=== PATIENT | male | born 1945 | race Caucasian/White ===

== ENCOUNTER 2024-05-25 11:20 | Emergency (ER) | payer OTHER ==
--- OUTSIDE RECORDS SUMMARY | 2024-05-25 11:26 | XMS REPORT | Continuity of Care Document ---
Author Name Unknown Address [address] [facility] [address] [place] [address] [facility] Address [address] [facility] 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 Phone NONE, AVAILABLE Primary Care Physician Unavailab uYlissa Brooks Attending Clinician UnavailJAYJAY Sherman Attending Clinician Unavailable JAYJAY VÁZQUEZ Attending Clinician Unavailable Dinorah Alejandre Attending Clinician Unavailable Loi Connelly Attending Clinician Unavailable Alex Dickerson Attending Clinician Unavailable Alessandro Metzger Attending Clinician Unavailable Teresa Velasco Attending Clinician Unavailable Jamaica Bardales Attending Clinician UnavailBo Medina Attending Clinician Unavailable Margo Rajan Attending Clinician Unavailab Yulissa Brooks Admitting Clinician UnavailJAYJAY Sherman Admitting Clinician Unavailable Dinorah Alejandre Admitting Clinician Unavailable Muna Ellsworth Admitting Clinician Unabenjamin valenzuela Physician, No Primary or Family Admitting Clinic carter Unavailable Alessandro Metzger Admitting Clinician Unavailable Teresa Velasco Admitting Clinician Unavailable UNDEFINED Admitting Clinician Unavailable Bo Dee Admitting Clinician Unavailable Payers Payer Name Policy Type Policy Number Effective Date Expirati on Date Source [id number] 1959 00:00:00 [id number] 1959 00:00:00 Allergies, Adverse Reactions, Alerts Allergy Name Allergy Type Status Severity Reaction(s) Onset Date Inactive Date Treating Clinician Comments Source Sulfa (Sulfona mide Antibiot ics) DA Active SV SWELLING 8-13 00:00: 00 [facility] Sulfa (Sulfona mide Antibiot ics) DA Active U UNKNOWN 2-02 00:00: 00 [facility] No Known Drug Allergie s DA Active [facility] (LUF/LI V/SA) Social History Smoking Status Start Date Stop Date Source Never smoker [facility] (LUF/COLIN/SA) Vital Signs Vital Name Observation Time Observation Value Comments S ource Height 2024-03-19 01:10:00 170.18 CM Weight 2024-03-19 01:10:00 74.84 KG Heart Rate 2024-03-19 04:30:00 80 /min [facility] (LUF/COLIN/SA) Respiratory Rate 2024-03-19 04:30:00 18 /min [facility] (F/COLIN/SA) O2% BldC Oximetry 2024-03-19 04:30:00 98 % [facility] (LUF/COLIN/SA) BP Systolic 2024-03-19 04:30:00 130 mm[Hg] [facility] (LUF/COLIN/SA) BP Diastolic 2024-03-19 04:30:00 80 mm[Hg] [facility] (LUF/COLIN/SA) Body Temperature 2024-03-19 01:10:00 98.4 [degF] [facility] (LUF/COLIN/SA) Height 2024-03-19 01:10:00 67 [in_i] [facility] S [facility] (F/COLIN/SA) Weight 2024-03-19 01:10:00 165 [lb_av] [facility] (LUF/COLIN/SA) BMI (Body Mass Index) 2024-03-19 01:10:00 25.8 kg/m2 [facility] (LUF/COLIN/SA) Procedures Procedure Date / Time Performed Performing Clinicia n Source [id number] 2023-09-09 00:00:00 [id number] [facility] Encounters Start Date/Time End Date/Time Encounter Type Admission Type Attending [facility] Care Facility Care Department Encounter ID Source 2024-03-19 01:03:00 2024-03-19 04:38:00 LOW BACK PAIN, UNSPECIFIE D 1 BLANCAJAYJAY RUSHING [facility] [id number] [facility] (LUF/LI V/SA) 2024-03-19 00:00:00 2024-03-19 00:00:[address] [id number] [facility] (LUF/LI V/SA) 2024-03-19 00:00:00 2024-03-19 00:00:[address] [id number] [facility] (LUF/LI V/SA) 2023-12-27 13:49:00 2023-12-27 17:43:00 Inpatient EM Dinorah Alejandre HCAKW CARD [id number] [facility] 2023-11-26 12:41:00 2023-11-26 15:41:00 Emergency EM [place] Loi HCAKW SPENSER [id number] [facility] 2023-11-26 12:41:00 2023-11-26 15:41:00 Emergency EM MaricelLoi HCAKW SPENSER [id number] [facility] 2023-10-23 13:30:00 2023-10-23 14:02:00 Emergency EM Tuan Alex HCAKW CERS [id number] [facility] 2023-10-18 00:06:00 2023-10-18 16:43:00 Inpatient EM Alessandro Metzger HCAKW CARD [id number] [facility] 2023-10-01 13:33:00 2023-10-01 14:25:00 Emergency EM Alex Dickerson HCAKW CERS [id number] [facility] 2023-09-07 18:33:00 2023-09-11 11:33:00 Inpatient EM Teresa Velasco HCAKW CARD [id number] [facility] 2023-06-20 13:59:00 2023-06-20 16:30:00 Emergency EM [place] Bardales HCAKW SPENSER [id number] [facility] 2023-06-10 18:55:00 2023-06-12 14:32:00 Inpatient TR Bo Dee HCAKW CARD [id number] [facility] 2023-05-17 08:10:00 2023-05-17 14:59:00 Emergency EM Margo Rajan HCAKW CERS [id number] [facility] Results Test Description Test Time Test Comments Results Result Co mments Source ACUTE HEPATITIS [id number] 18:07:00 * Test Item Value Reference Range Interpretation Comme nts AG HEPATITIS B SURFACE (test code = HBSAG) NEGATIVE NEGATIVE AB HEPATITIS C (test code = HCVAB) REACTIVE NEGATIVE A Critical Tamanna ue reported toFirst Name: Last Name: [id number] READ BACK AND VERIFIEDby [id number], on 04/02/24, @ 6616. 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 Follow[facility] recommendations for supplemental testing.* HCV RNA PCRQualitative is suggested to be ordered to obtain strongerevidence of the presence of anti-HCV.* CDC. Testing for HCV Infection: An Update of Guidance forClinicians and Laboratorians. MMWR / August / Vol.62~~~~~~~~~~~~~~~~~~~~ ~~~~~~~~~~~~~~~~~~~~~~~~~~ ~~~~~~~~~~~~~~ HEPATITIS C RNA BY [id number] 18:07:00 * Test Item Value Reference Range Interpretation Comme nts HEPATITIS C RNA BY PCR (test code = HCVRNAPCR) HCV Not Detected IU/mL See_Comment The quantitative range of this assay is 15 IU/mL to 100 million IU/mL. [Automated message] The system which generated this result transmitted reference range: (). The reference range was not used to interpret this result as normal/abnormal. [id number] 12:21:00* Test Item Value Reference Range Interpretation Comme nts GLUBED (test code = GLUBED) 202 MG/DL 74-106 H [id number] 08:33:00* Test Item Value Reference Range Interpretation Comme nts GLUBED (test code = GLUBED) 176 MG/DL 74-106 H CBC W/AUTO [id number] 06:04:00* Test Item Value Reference Range Interpretation Comme nts WHITE BLOOD CELL (test code = WBC) 2.3 x10 3/uL 5.0-12.0 L RED BLOOD CELL (test code = RBC) 3.70 x10 6/uL 4.70-6.10 L HEMOGLOBIN (test code = HGB) 10.1 g/dL 14.0-18.0 L HEMATOCRIT (test code = HCT) 32.9 % 37.0-49.0 L MEAN CELL VOLUME (test code = MCV) 89 fL 80-94 N MEAN CELL HGB (test code = MCH) 27.3 pg 27-31 N MEAN CELL HGB CONCENTRATION (test code = MCHC) 30.7 g/dL 33-37 L RED CELL DISTRIBUTION WIDTH (test code = RDW) 21.9 % 11.5-15.5 H PLATELET COUNT (test code = PLT) 69 x10 3/uL 130-400 L MEAN PLATELET VOLUME (test c ode = MPV) 9.5 fL 9.4-16.4 N NEUTROPHIL % (test code = NT%) 58.5 % 43-65 N IMMATURE GRANULOCYTE % (test code = IG%) 0.4 % 0.0-2.0 N LYMPHOCYTE % (test code = LY%) 29.6 % 20.5-45.5 N MONOCYTE % (test code = MO%) 9.4 % 5.5-11.7 N EOSINOPHIL % (test code = EO%) 1.7 % 0.9-2.9 N BASOPHIL % (test code = BA%) 0.4 % 0.2-1.0 N NUCLEATED RBC % (test code = NRBC%) 0.0 % 0-1.0 N NEUTROPHIL # (test code = NT#) 1.36 x10 3/uL 2.2-4.8 L IMMATURE GRANULOCYTE # (test code = IG#) 0.01 x10 3/uL 0-0.03 N LYMPHOCYTE # (test code = LY#) 0.69 x10 3/uL 1.3-2.9 L MONOCYTE # (test code = MO#) 0.22 x10 3/uL 0.3-0.8 L EOSINOPHIL # (test code = EO#) 0.04 x10 3/uL 0.0-0.2 N BASOPHIL # (test code = BA#) 0.01 x10 3/uL 0.0-0.1 N PLATELET ESTIMATE (test code = PLTEST) DECREASED ADEQUATE PLATELET MORPHOLOGY (test co de = PLTMORPH) NORMAL NORMAL WBC [id number] 06:04:00* Test Item Value Reference Range Interpretation Comme nts TOTAL CELLS COUNTED (test co de = TCC) 100 #CELLS SEGMENTED NEUTROPHILS (test code = SEG) 67 % 43-65 H LYMPHOCYTE (test code = LYMPH) 15 % 20.5-45.5 L BAND NEUTROPHIL (test code = BAND) 2 % 0-1 H ATYPICAL LYMPH (test code = ALYMPH) 12 % 0-1 H MONOCYTE (test code = MON) 3 % 5.5-11.7 L EOSINOPHIL (test code = EOS) 2 % 0.9-2.9 N NUCLEATED RED BLOOD CELL (te st code = NRBC) 0.8 % 0-1 N POLYCHROMASIA (test code = POLC) 1+ NONE SEEN A POIKILOCYTOSIS (test code = POIK) 2+ NONE SEEN A ANISOCYTOSIS (test code = ANISO) 1+ NONE SEEN A MICROCYTOSIS (test code = MICR) 1+ NONE SEEN A ECHINOCYTES (test code = ECH) 2+ NONE SEEN A ELLIPTOCYTES (test code = ELL) 1+ NONE SEEN A OVALOCYTES (test code = OVAL) 1+ NONE SEEN A [id number] 06:01:00* Test Item Value Reference Range Interpretation Comme nts GLUBED (test code = GLUBED) 141 MG/DL 74-106 H BASIC METABOLIC [id number] 05:37:00* Test Item Value Reference Range Interpretation Comme nts SODIUM (test code = NA) 132 mmol/L 136-145 L POTASSIUM (test code = K) 4.2 mmol/L 3.5-5.1 N CHLORIDE (test code = CL) 104 mmol/L 98-107 N CARBON DIOXIDE (test code = CO2) 21.0 mmol/L 20.0-31.0 N ANION GAP (test code = GAP) 11 mmol/L 10-20 N GLUCOSE (test code = GLU) 190 mg/dL 74-106 H BLOOD UREA NITROGEN (test code = BUN) 16 mg/dL 9-23 N GLOMERULAR FILTRATION RATE (test code = GFR) 89 mL/min The Glomerular Filtration Rate is a calculated parameterbased on serum Creatinine, patient age and sex. GFR valuesless than 60 mL/min/1.73 square meters are indicative ofChronic Kidney Disease. Values less than 15 mL/min/1.73square meters indicate Kidney failure. The calculation forGFR is based on the CKD-EPI (2020) calculation. This formulais race indifferent and is the recommended formula for GFRby the National Kidney Foundation for Adults.The GFR will not calculate if the sex is unknown or if thepatient's age is <18 years. CREATININE (test code = CREAT) 0.85 mg/dL 0.55-1.30 N CALCIUM (test code = CA) 8.4 mg/dL 8.7-10.4 L INDEX HEMOLYSIS (test code = HEMINDEX) 1 Index/DL 0-3 N IS THE SAMPLE HEMOLYZED?:NHEMOLYSIS GRADE:0 0 - Normal+1 - Suspect Hemolysis+2 - Severe Hemolysis+3 - Grossly Hemolyzed "HEMOLYZED SPECIMEN MUST BE INTERPRETED WITH CAUTION SOMEOR ALL TEST RESULTS MAY BE INACCURATE."PLEASE CORRELATE CLINICALLY. [id number] 05:37:00* Test Item Value Reference Range Interpretation Comme nts PHOSPHOROUS (test code = PHOS) 2.8 mg/dL 2.4-5.1 N [id number] 05:37:00* Test Item Value Reference Range Interpretation Comme nts MAGNESIUM (test code = MAG) 1.8 mg/dL 1.6-2.6 N [id number] 20:48:00* Test Item Value Reference Range Interpretation Comme nts GLUBED (test code = GLUBED) 149 MG/DL 74-106 H [id number] 16:35:00* Test Item Value Reference Range Interpretation Comme nts GLUBED (test code = GLUBED) 191 MG/DL 74-106 H [id number] 12:07:00* Test Item Value Reference Range Interpretation Comme nts GLUBED (test code = GLUBED) 226 MG/DL 74-106 H CBC W/MANUAL [id number] 11:31:00* Test Item Value Reference Range Interpretation Comme nts WHITE BLOOD CELL (test code = WBC) 1.7 x10 3/uL 5.0-12.0 L RED BLOOD CELL (test code = RBC) 3.83 x10 6/uL 4.70-6.10 L HEMOGLOBIN (test code = HGB) 10.6 g/dL 14.0-18.0 L HEMATOCRIT (test code = HCT) 33.0 % 37.0-49.0 L MEAN CELL VOLUME (test code = MCV) 86 fL 80-94 N MEAN CELL HGB (test code = MCH) 27.7 pg 27-31 N MEAN CELL HGB CONCENTRATION (test code = MCHC) 32.1 g/dL 33-37 L RED CELL DISTRIBUTION WIDTH (test code = RDW) 21.5 % 11.5-15.5 H PLATELET COUNT (test code = PLT) 79 x10 3/uL 130-400 L MEAN PLATELET VOLUME (test c ode = MPV) 9.2 fL 9.4-16.4 L TOTAL CELLS COUNTED (test co de = TCC) 100 #CELLS SEGMENTED NEUTROPHILS (test code = SEG) % 43-65 LYMPHOCYTE (test code = LYMPH) % 20.5-45.5 PATHOLOGIST [id number] 11:31:00* Test Item Value Reference Range Interpretation Comme nts PATHOLOGIST INTERPRETATION (test code = CBCI) . COMMENTS: Pancyt openia; no blasts, schistocytes or plateletclumps seen. ([id number])PATHOLOGIST: JAXSON HERNANDEZ MDENTERED BY:Diogo, on 04/02/24, @ 1130. [id number] 08:18:00* Test Item Value Reference Range Interpretation Comme nts GLUBED (test code = GLUBED) 158 MG/DL 74-106 H CBC W/MANUAL [id number] 08:08:00* Test Item Value Reference Range Interpretation Comme nts WHITE BLOOD CELL (test code = WBC) 1.8 x10 3/uL 5.0-12.0 L RED BLOOD CELL (test code = RBC) 4.04 x10 6/uL 4.70-6.10 L HEMOGLOBIN (test code = HGB) 11.0 g/dL 14.0-18.0 L HEMATOCRIT (test code = HCT) 35.6 % 37.0-49.0 L MEAN CELL VOLUME (test code = MCV) 88 fL 80-94 N MEAN CELL HGB (test code = MCH) 27.2 pg 27-31 N MEAN CELL HGB CONCENTRATION (test code = MCHC) 30.9 g/dL 33-37 L RED CELL DISTRIBUTION WIDTH (test code = RDW) 21.7 % 11.5-15.5 H PLATELET COUNT (test code = PLT) 78 x10 3/uL 130-400 L MEAN PLATELET VOLUME (test c ode = MPV) 9.5 fL 9.4-16.4 N TOTAL CELLS COUNTED (test co de = TCC) 100 #CELLS SEGMENTED NEUTROPHILS (test code = SEG) 79 % 43-65 H LYMPHOCYTE (test code = LYMPH) 4 % 20.5-45.5 L ATYPICAL LYMPH (test code = ALYMPH) 8 % 0-1 H MONOCYTE (test code = MON) 5 % 5.5-11.7 L EOSINOPHIL (test code = EOS) 1 % 0.9-2.9 N NUCLEATED RED BLOOD CELL (te st code = NRBC) 0.8 % 0-1 N POLYCHROMASIA (test code = POLC) 3+ NONE SEEN A POIKILOCYTOSIS (test code = POIK) 3+ NONE SEEN A ANISOCYTOSIS (test code = ANISO) 2+ NONE SEEN A MICROCYTOSIS (test code = MICR) 2+ NONE SEEN A MACROCYTOSIS (test code = MACR) 1+ NONE SEEN A ECHINOCYTES (test code = ECH) 2+ NONE SEEN A PLATELET ESTIMATE (test code = PLTEST) DECREASED ADEQUATE BASIC METABOLIC [id number] 07:08:00* Test Item Value Reference Range Interpretation Comme nts SODIUM (test code = NA) 134 mmol/L 136-145 L POTASSIUM (test code = K) 4.2 mmol/L 3.5-5.1 N CHLORIDE (test code = CL) 106 mmol/L 98-107 N CARBON DIOXIDE (test code = CO2) 24.0 mmol/L 20.0-31.0 N ANION GAP (test code = GAP) 8 mmol/L 10-20 L GLUCOSE (test code = GLU) 203 mg/dL 74-106 H BLOOD UREA NITROGEN (test code = BUN) 25 mg/dL 9-23 H GLOMERULAR FILTRATION RATE (test code = GFR) 87 mL/min The Glomerular Filtration Rate is a calculated parameterbased on serum Creatinine, patient age and sex. GFR valuesless than 60 mL/min/1.73 square meters are indicative ofChronic Kidney Disease. Values less than 15 mL/min/1.73square meters indicate Kidney failure. The calculation forGFR is based on the CKD-EPI (2020) calculation. This formulais race indifferent and is the recommended formula for GFRby the National Kidney Foundation for Adults.The GFR will not calculate if the sex is unknown or if thepatient's age is <18 years. CREATININE (test code = CREAT) 1.00 mg/dL 0.55-1.30 N CALCIUM (test code = CA) 9.0 mg/dL 8.7-10.4 N INDEX HEMOLYSIS (test code = HEMINDEX) 1 Index/DL 0-3 N IS THE SAMPLE HEMOLYZED?: NOHEMOLYSIS GRADE:0 0 - Normal+1 - Suspect Hemolysis+2 - Severe Hemolysis+3 - Grossly Hemolyzed "HEMOLYZED SPECIMEN MUST BE INTERPRETED WITH CAUTION SOMEOR ALL TEST RESULTS MAY BE INACCURATE."PLEASE CORRELATE CLINICALLY. [id number] 07:08:00* Test Item Value Reference Range Interpretation Comme nts PHOSPHOROUS (test code = PHOS) 3.4 mg/dL 2.4-5.1 N [id number] 07:08:00* Test Item Value Reference Range Interpretation Comme nts MAGNESIUM (test code = MAG) 1.9 mg/dL 1.6-2.6 N LACTIC [id number] 06:48:00* Test Item Value Reference Range Interpretation Comme nts LACTIC ACID (test code = LACT) 1.8 mmol/L 0.50-1.99 N [id number] 06:21:00* Test Item Value Reference Range Interpretation Comme nts GLUBED (test code = GLUBED) 189 MG/DL 74-106 H PROTHROMBIN [id number] 06:20:00* Test Item Value Reference Range Interpretation Comme nts PROTHROMBIN TIME PATIENT (test code = PTP) 13.8 SECONDS 9.4-12.5 H INTERNATIONAL NORMAL RATIO (test code = INR) 1.2 The INR is to be used only for monitoring ORAL ANTICOAGULANTTHERAPY. Indication INR Value1. Prophylaxis/treatment of: Venous Thrombosis, Pulmonary Embolism 2.0 - 3.02. Prevention of systemic embolism from: Tissue heart valves 2.0 - 3.0 Acute myocardial infarction (to present systemic embolism)* 2.0 - 3.0 Valvular heart disease 2.0 - 3.0 Atrial fibrillation 2.0 - 3.03. Mechanical prosthetic valves (high risk) 2.5 - 3.5 * If oral anticoagulant therapy is elected to preventrecurrent myocardial infarction, an INR of 2.5-3.5 isrecommended, consistent with Food and Drug Administrationrecommen dations. Spec Comments: cirrhosis [id number] 00:13:00* Test Item Value Reference Range Interpretation Comme nts GLUBED (test code = GLUBED) 253 MG/DL 74-106 H [id number] 15:20:00* Test Item Value Reference Range Interpretation Comme nts GLUBED (test code = GLUBED) 366 MG/DL 74-106 H VITAMIN [id number] 12:39:00* Test Item Value Reference Range Interpretation Comme nts VITAMIN B12 (test code = VITB12) 432 pg/mL 211-911 N FOLIC [id number] 12:39:00* Test Item Value Reference Range Interpretation Comme nts FOLIC ACID (test code = FOL) > 24.00 ng/mL 5.38-28 N REFERENCE RANGE: >5.38 ng/mL A positive bias may occur on patients taking BIOTINsupplements. TSH REFLEX TO [id number] 12:39:00* Test Item Value Reference Range Interpretation Comme nts TSH REFLEX TO FT4 (test code = TSHREFLEX) 0.678 uIU/mL 0.42-5.47 N LACTIC [id number] 12:09:00* Test Item Value Reference Range Interpretation Comme nts LACTIC ACID (test code = LACT) 2.9 mmol/L 0.50-1.99 HH [id number] 11:52:00* Test Item Value Reference Range Interpretation Comme nts GLUBED (test code = GLUBED) 350 MG/DL 74-106 H [id number] 08:01:00* Test Item Value Reference Range Interpretation Comme nts GLUBED (test code = GLUBED) 316 MG/DL 74-106 H CBC W/MANUAL [id number] 07:06:00* Test Item Value Reference Range Interpretation Comme nts WHITE BLOOD CELL (test code = WBC) 1.0 x10 3/uL 5.0-12.0 LL RED BLOOD CELL (test code = RBC) 3.86 x10 6/uL 4.70-6.10 L HEMOGLOBIN (test code = HGB) 10.4 g/dL 14.0-18.0 L HEMATOCRIT (test code = HCT) 33.5 % 37.0-49.0 L MEAN CELL VOLUME (test code = MCV) 87 fL 80-94 N MEAN CELL HGB (test code = MCH) 26.9 pg 27-31 L MEAN CELL HGB CONCENTRATION (test code = MCHC) 31.0 g/dL 33-37 L RED CELL DISTRIBUTION WIDTH (test code = RDW) 21.8 % 11.5-15.5 H PLATELET COUNT (test code = PLT) 68 x10 3/uL 130-400 L MEAN PLATELET VOLUME (test c ode = MPV) 9.2 fL 9.4-16.4 L TOTAL CELLS COUNTED (test co de = TCC) 100 #CELLS SEGMENTED NEUTROPHILS (test code = SEG) 75 % 43-65 H LYMPHOCYTE (test code = LYMPH) 7 % 20.5-45.5 L BAND NEUTROPHIL (test code = BAND) 9 % 0-1 H ATYPICAL LYMPH (test code = ALYMPH) 3 % 0-1 H MONOCYTE (test code = MON) 5 % 5.5-11.7 L EOSINOPHIL (test code = EOS) 1 % 0.9-2.9 N POLYCHROMASIA (test code = POLC) 2+ NONE SEEN A ANISOCYTOSIS (test code = ANISO) 1+ NONE SEEN A MICROCYTOSIS (test code = MICR) 1+ NONE SEEN A TARGET CELLS (test code = TGT) 2+ NONE SEEN A PLATELET ESTIMATE (test code = PLTEST) ADEQUATE ADEQUATE PLATELET MORPHOLOGY (test co de = PLTMORPH) NORMAL NORMAL COMPREHENSIVE METABOLIC [id number] 07:05:00* Test Item Value Reference Range Interpretation Comme nts SODIUM (test code = NA) 134 mmol/L 136-145 L POTASSIUM (test code = K) 4.5 mmol/L 3.5-5.1 N CHLORIDE (test code = CL) 103 mmol/L 98-107 N CARBON DIOXIDE (test code = CO2) 24.0 mmol/L 20.0-31.0 N ANION GAP (test code = GAP) 12 mmol/L 10-20 N GLUCOSE (test code = GLU) 369 mg/dL 74-106 H BLOOD UREA NITROGEN (test code = BUN) 17 mg/dL 9-23 N GLOMERULAR FILTRATION RATE (test code = GFR) 76 mL/min The Glomerular Filtration Rate is a calculated parameterbased on serum Creatinine, patient age and sex. GFR valuesless than 60 mL/min/1.73 square meters are indicative ofChronic Kidney Disease. Values less than 15 mL/min/1.73square meters indicate Kidney failure. The calculation forGFR is based on the CKD-EPI (202) calculation. This formulais race indifferent and is the recommended formula for GFRby the National Kidney Foundation for Adults.The GFR will not calculate if the sex is unknown or if thepatient's age is <18 years. CREATININE (test code = CREAT) 1.01 mg/dL 0.55-1.30 N TOTAL PROTEIN (test code = PROT) 6.3 g/dL 5.7-8.2 N ALBUMIN (test code = ALB) 3.1 g/dL 3.4-5.0 L CALCIUM (test code = CA) 9.1 mg/dL 8.7-10.4 N BILIRUBIN TOTAL (test code = BILT) 0.40 mg/dL 0.20-1.10 N BILIRUBIN CONJUGATED (test code = BILCON) 0.2 mg/dL 0.1-0.3 N "A positive bias may occur for patients taking Eltrombopag(a bone marrow stimulant used to treat thrombocytopenia andaplastic anemia)." CONJUGATE D BILIRUBIN IS THE REPLACEMENT ASSAY FOR DIRECTBILIRUBIN. BILIRUBIN UNCONJUGATED (test code = BILUNC) 0.20 mg/dL 0-1.1 N SGOT/AST (test code = AST) 33 U/L 0-33 N SGPT/ALT (test code = ALT) 34 U/L 10-49 N ALKALINE PHOSPHATASE (test code = ALKP) 115 U/L 46-116 N INDEX HEMOLYSIS (test code = HEMINDEX) 0 Index/DL 0-3 N LIPID PROFILE (CORONARY RISK)2024-04-01 07:05:00* Test Item Value Reference Range Interpretation Comme nts TRIGLYCERIDES (test code = TRIG) 41 mg/dL 0-149 N TRIGLYCERIDES REFERENCE RANGE:Normal: <150 mg/dLBorderline High: 150-199 mg/dLHigh: 200-499 mg/dLVery High: >=500 mg/dL CHOLESTEROL (test code = CHOL) 89 mg/dL 0-199 N CHOLESTEROL REFE RENCE RANGE:DESIRABLE: < 200 mg/dLBORDERLINE: 200-239 mg/dLHIGH: >=240 mg/dL HDL CHOLESTEROL (test code = HDL) 38.0 mg/dL 40.0-59.0 L LIPOPROTEIN LDL (test code = LDLC) 48 mg/dL 0-99 N CORONARY RISK FACTOR (test code = RISK) 2.34 CHOL/HDL RISK MALE: 1/2 AVG 3.43 FEMALE: 1/2 AVG 3.27 AVG 4.97 AVG 4.44 2X AVG 9.55 2X AVG 7.05 3X AVG 23.39 3X AVG 11.04~~~~~~~~~~~~~~~~ ~~~~~~~~~~~~~~~~~~~~~ ~~~~~~~~~~~~~~~~~~~~~ ~~National Cholesterol Education (NCEP) Guidelines:~~~~~~~~~~ ~~~~~~~~~~~~~~~~~~~~~ ~~~~~~~~~~~~~~~~~~~~~ ~~~~~~~~ HDL Cholesterol<40mg/dL : HDL Cholesterol (Major risk factor for CHD)>60mg/dL: HDL Cholesterol (Negative risk factor for CHD)40-59mg/dL: Borderline Risk LDL Cholesterol<100mg/d L: Desirable LDL-C [id number] g/dL: Borderline High Risk LDL-C [id number] g/dL: High risk LDL-C concentration HDL-LDL Cholesterol is affected by a number of factors suchas smoking, age and sex.~~~~~~~~~~~~~~~~~ ~~~~~~~~~~~~~~~~~~~~~ ~~~~~~~~~~~~~~~~~~~~~ ~ [id number] 07:05:00* Test Item Value Reference Range Interpretation Comme nts PHOSPHOROUS (test code = PHOS) 4.5 mg/dL 2.4-5.1 N [id number] 07:05:00* Test Item Value Reference Range Interpretation Comme nts MAGNESIUM (test code = MAG) 1.8 mg/dL 1.6-2.6 N [id number] 07:05:00* Test Item Value Reference Range Interpretation Comme nts ALCOHOL (test code = ALC) < 3.0 mg/dL <3 ~~~~~~~~~~~~~~~~ ~~~~~~ ~~~~~~~~~~~~~~~~~~~~~~ ~~~~~~ RESULTS ARE TO BE USED FOR MEDICAL PURPOSES ONLY.FOR LEGAL PURPOSES THE SPECIMEN MUST BE COLLECTED BY A CHAINOF CUSTODY. LEGAL TESTING IS NOT PERFORMED BY THIS FACILITY. ~~~~~~~~~~~~~~~~~~~~~~ ~~~~~~~~~~~~~~~~~~~~~~ ~~~~~~ DRUGS OF ABUSE [id number] 06:50:00* Test Item Value Reference Range Interpretation Comme nts UR COCAINE (test code = COCAU) Neg NEGATIVE CUTOFF >/= 300 N G/ML UR THC CANABINOIDS QL SQN (test code = CANU) Neg NEGATIVE CUTOFF >/= 20 NG/ML UR AMPHETAMINE QL SQN (test code = AMPHU) Pos NEGATIVE CUTOFF >/= 5 00 NG/ML UR BARBITURATE QUAL (test code = BARBQLU) Neg NEGATIVE CUTOFF >/= 200 N G/ML UR BENZODIAZEPINE (test code = BENZU) Neg NEGATIVE CUTOFF >/= 200 N G/ML UR OPIATES QUAL (test code = OPIAQLU) Neg NEGATIVE CUTOFF >/= 300 N G/ML UR PHENCYCLIDINE (PCP) (test code = PHENCU) Neg NEGATIVE CUTOFF >/= 25 NG/ML A Positive drug screen result provides only a "PreliminaryPositive" test result.If a confirmation of positive result is necessary, a morespecific confirmatory test must be ordered by the physician. Drug screens are performed for medical (i.e. treatment)purposes only. Unconfirmed screening results must not beused for non-medical purposes (e.g employment testing). HGBA1C - GLYCOSYLATED [id number] 06:33:00* Test Item Value Reference Range Interpretation Comme nts GLYCOSYLATED HEMOGLOBIN (HA1C) (test code = GLYHGB) 8.90 % 0.0-5.6 H Current anabel delines recommend a treatment goal of <7% fordiabetic patients. A1c may be overestimated in diabeticpatients exhibiting poor control and who are alsoheterozygous or homozygous for HgbS or HgbC. Totalglycohemoglobin is a better indicator of diabetic control inpatients with these hemoglobin variants. PROTHROMBIN [id number] 06:26:00* Test Item Value Reference Range Interpretation Comme nts PROTHROMBIN TIME PATIENT (test code = PTP) 15.3 SECONDS 9.4-12.5 H INTERNATIONAL NORMAL RATIO (test code = INR) 1.4 The INR is to be used only for monitoring ORAL ANTICOAGULANTTHERAPY. Indication INR Value1. Prophylaxis/treatment of: Venous Thrombosis, Pulmonary Embolism 2.0 - 3.02. Prevention of systemic embolism from: Tissue heart valves 2.0 - 3.0 Acute myocardial infarction (to present systemic embolism)* 2.0 - 3.0 Valvular heart disease 2.0 - 3.0 Atrial fibrillation 2.0 - 3.03. Mechanical prosthetic valves (high risk) 2.5 - 3.5 * If oral anticoagulant therapy is elected to preventrecurrent myocardial infarction, an INR of 2.5-3.5 isrecommended, consistent with Food and Drug Administrationrecommen dations. THROMBOPLASTIN TIME [id number] 06:26:00* Test Item Value Reference Range Interpretation Comme nts THROMBOPLASTIN TIME PARTIAL (test code = PTT) 33.6 SECONDS 23.4-37.0 N Therapeutic Rang e for Heparin EFFECTIVE 10/22/12 Heparin IU/mL aPTT Seconds0.3 64.30.7 88.8 [id number] 00:33:00* Test Item Value Reference Range Interpretation Comme nts GLUBED (test code = GLUBED) 251 MG/DL 74-106 H UA RFLX MICR CULT IF [id number] 17:03:00* Test Item Value Reference Range Interpretation Comme nts UA COLOR (test code = COLU) YELLOW YELLOW UA APPEARANCE (test code = APPU) CLEAR CLEAR UA GLUCOSE DIPSTICK (test co de = DGLUU) 500 (3+) MG/DL NEGATIVE A UA BILIRUBIN DIPSTICK (test code = BILU) NEGATIVE NEGATIVE UA KETONE DIPSTICK (test cod e = KETU) NEGATIVE MG/DL NEGATIVE UA SPECIFIC GRAVITY (test co de = SGU) 1.015 1.000-1.030 UA BLOOD DIPSTICK (test code = CHITO) NEGATIVE NEGATIVE UA PH DIPSTICK (test code = LUCY) 6.0 5.0-8.0 UA PROTEIN DIPSTICK (test co de = PROU) NEGATIVE MG/DL NEGATIVE UA UROBILINOGEN DIPSTICK (te st code = URO) 1.0 EU/dL <=1.0 UA NITRITE DIPSTICK (test co de = CHRISSY) NEGATIVE NEGATIVE UA LEUKOCYTE ESTERASE DIPSTI CK (test code = LEUU) NEGATIVE NEGATIVE UA WBC (test code = WBCUR) 0-3 /HPF 0-3 UA RBC (test code = RBCU) 0-3 /HPF 0-3 UA BACTERIA (test code = BACU) Rare /HPF NEGATIVE UA EPITHELIAL CELLS (test co de = EPIU) RARE /LPF NONE-FEW Indication for culture: Dysuria/FrequencySOURCE OF URINE: CLEAN CATCHBASIC METABOLIC [id number] 16:54:00* Test Item Value Reference Range Interpretation Comme nts SODIUM (test code = NA) 136 MMOL/L 135-147 N POTASSIUM (test code = K) 4.4 MMOL/L 3.6-5.2 N CHLORIDE (test code = CL) 102 MMOL/L 98-108 N CARBON DIOXIDE (test code = CO2) 25 mmol/L 21-32 N GLUCOSE (test code = GLU) 227 mg/dL 70-110 H BLOOD UREA NITROGEN (test code = BUN) 17 MG/DL 6-21 N GLOMERULAR FILTRATION RATE (test code = GFR) 77 mL/min The Glomerular Filtration Rate is a calculated parameterbased on serum Creatinine, patient age and sex. GFR valuesless than 60 mL/min/1.73 square meters are indicative ofChronic Kidney Disease. Values less than 15 mL/min/1.73square meters indicate Kidney failure. The calculation forGFR is based on the CKD-EPI (2020) calculation. This formulais race indifferent and is the recommended formula for GFRby the National Kidney Foundation for Adults.The GFR will not calculate if the sex is unknown or if thepatient's age is <18 years. CREATININE (test code = CREAT) 1.0 mg/dL 0.6-1.3 N CALCIUM (test code = CA) 8.3 mg/dL 8.7-10.5 L LIVER FUNCTION [id number] 16:54:00* Test Item Value Reference Range Interpretation Comme nts TOTAL PROTEIN (test code = PROT) 6.5 g/dL 6.0-8.2 N ALBUMIN (test code = ALB) 2.7 G/DL 3.7-5.5 L BILIRUBIN TOTAL (test code = BILT) 0.50 mg/dL 0.0-1.0 N BILIRUBIN DIRECT (test code = BILD) 0.20 mg/dL 0.05-0.3 N SGOT/AST (test code = AST) 32 UNITS/L 10-37 N SGPT/ALT (test code = ALT) 35 UNITS/L 12-78 N ALKALINE PHOSPHATASE (test c ode = ALKP) 123 UNITS/L 46-116 H [id number] 16:54:00* Test Item Value Reference Range Interpretation Comme nts LIPASE (test code = LIP) 194 U/L 16-77 H URINALYSIS WITH REFLEX TO [id number] 03:17:00* Test Item Value Reference Range Interpretation Comme nts Color (test code = UCOLR) Lt. Yellow Clarity (test code = UCLAR) Clear Glucose (test code = UGLUC) >=1000 NEGATIVE A Bilirubin (test code = UBILI) NEGATIVE NEGATIVE N Ketones (test code = UKET) NEGATIVE NEGATIVE N Specific Phil Campbell (test code = USPGR) 1.015 1.005-1.030 A Blood (test code = UBLD) NEGATIVE NEGATIVE N PH (test code = UPH) 7.5 4.5-8.0 A Protein (test code = UPROT) NEGATIVE NEGATIVE N Urobilinogen (test code = U UROB) 0.2 See_Comment N [Automated message] The system which generated this result transmitted reference range: 0.2. The reference range was not used to interpret this result as normal/abnormal. Nitrite (test code = UNITR) NEGATIVE NEGATIVE N Leukocyte Esterase (test code = ULEUK) NEGATIVE NEGATIVE N WBC (test code = WBCUR) 2-6 NONE,0-1,2-5,6-1 0 AA RBC (test code = RBCUR) 2-6 0-5 A Epithial Cells (test code = U EPI) 20-30 0-10 A Mucous (test code = UMUC) Moderate None Seen A Bacteria (test code = UBACT) 1+ None Seen,Trace A Crystals Urine (test code = URCRYS) Moderate Amorphous Phosphates None Seen A STLMLLIPID PROFILE (CORONARY RISK)[id number] 15:40:00* Test Item Value Reference Range Interpretation Comme nts TRIGLYCERIDES (test code = TRIG) 39 mg/dL 0-149 N TRIGLYCERIDES REFERENCE RANGE:Normal: <150 mg/dLBorderline High: 150-199 mg/dLHigh: 200-499 mg/dLVery High: >=500 mg/dL CHOLESTEROL (test code = CHOL) 91 mg/dL 0-199 N CHOLESTEROL REFE RENCE RANGE:DESIRABLE: < 200 mg/dLBORDERLINE: 200-239 mg/dLHIGH: >=240 mg/dL HDL CHOLESTEROL (test code = HDL) 41.0 mg/dL 40.0-59.0 N LIPOPROTEIN LDL (test code = LDLC) 42 mg/dL 0-99 N CORONARY RISK FACTOR (test code = RISK) 2.22 CHOL/HDL RISK MALE: 1/2 AVG 3.43 FEMALE: 1/2 AVG 3.27 AVG 4.97 AVG 4.44 2X AVG 9.55 2X AVG 7.05 3X AVG 23.39 3X AVG 11.04~~~~~~~~~~~~~~~~ ~~~~~~~~~~~~~~~~~~~~~ ~~~~~~~~~~~~~~~~~~~~~ ~~National Cholesterol Education (NCEP) Guidelines:~~~~~~~~~~ ~~~~~~~~~~~~~~~~~~~~~ ~~~~~~~~~~~~~~~~~~~~~ ~~~~~~~~ HDL Cholesterol<40mg/dL : HDL Cholesterol (Major risk factor for CHD)>60mg/dL: HDL Cholesterol (Negative risk factor for CHD)40-59mg/dL: Borderline Risk LDL Cholesterol<100mg/d L: Desirable LDL-C lpaneiuxftwbx630-207u g/dL: Borderline High Risk LDL-C [id number] g/dL: High risk LDL-C concentration HDL-LDL Cholesterol is affected by a number of factors suchas smoking, age and sex.~~~~~~~~~~~~~~~~~ ~~~~~~~~~~~~~~~~~~~~~ ~~~~~~~~~~~~~~~~~~~~~ ~ BASIC METABOLIC [id number] 14:36:00* Test Item Value Reference Range Interpretation Comme nts SODIUM (test code = NA) 135 mmol/L 136-145 L POTASSIUM (test code = K) 3.9 mmol/L 3.5-5.1 N CHLORIDE (test code = CL) 103 mmol/L 98-107 N CARBON DIOXIDE (test code = CO2) 29.0 mmol/L 20.0-31.0 N ANION GAP (test code = GAP) 7 mmol/L 10-20 L GLUCOSE (test code = GLU) 226 mg/dL 74-106 H BLOOD UREA NITROGEN (test code = BUN) 17 mg/dL 9-23 N GLOMERULAR FILTRATION RATE (test code = GFR) 92 mL/min The Glomerular Filtration Rate is a calculated parameterbased on serum Creatinine, patient age and sex. GFR valuesless than 60 mL/min/1.73 square meters are indicative ofChronic Kidney Disease. Values less than 15 mL/min/1.73square meters indicate Kidney failure. The calculation forGFR is based on the CKD-EPI (2020) calculation. This formulais race indifferent and is the recommended formula for GFRby the National Kidney Foundation for Adults.The GFR will not calculate if the sex is unknown or if thepatient's age is <18 years. CREATININE (test code = CREAT) 0.75 mg/dL 0.70-1.30 N CALCIUM (test code = CA) 9.1 mg/dL 8.7-10.4 N INDEX HEMOLYSIS (test code = HEMINDEX) 0 Index/DL 0-100 N [id number] 14:36:00* Test Item Value Reference Range Interpretation Comme nts MAGNESIUM (test code = MAG) 1.6 mg/dL 1.6-2.6 N TROP-I HIGH [id number] 14:36:00* Test Item Value Reference Range Interpretation Comme nts TROP-I HIGH SENSITIVITY (test code = TROPIHS) 5.94 ng/L 0.00-54.00 N 99th Percentile Upper Reference Limit (URL):Females: 34 ng/LMales: 54 ng/L In order to distinguish acute elevations of high sensitivitytroponin from other clinical conditions, the FourthUniversal Definition of Myocardial Infarction stressesclinical assessment and the demonstration of a rise and/orfall in serial troponin results above the URL. These results were obtained using [employer] IM TnIHreagent. Results from different methodologies should not becompared to one another as quantitative results and URLs mayvary by method. [id number] 14:06:00* Test Item Value Reference Range Interpretation Comme nts D-DIMER (test code = DDIMER) 593 ng/mLFEU 0-500 H THE DDIMER METHO D IS USED IN THE EXCLUSION OF DEEP VEINTHROMBOSIS AND/OR PULMONARY EMBOLISM AND THE CLINICAL CUT-OFF VALUE FOR EXCLUSION (500 NG/ML FEU) OF THESE CONDITIONSIS VALIDATED BY THE COGNOS ANALYST OF THE METHOD. A NEGATIVE DDIMER RESULT WHEN COMBINED WITH A CLINICALASSESSMENT OF LOW PRETEST PROBABILITY HAS BEEN SHOWN TO HAVEA HIGH NEGATIVE PREDICTIVE VALUE OF DVT OR PE. D-DIMER VALUES >500 ng/mL ARE NOT DIAGNOSTIC FOR DVT,PEOR DIC WITHOUT OTHER CONFIRMATORY TESTS AND APPROPRIATECLINICAL EVALUATIONS. CBC W/AUTO [id number] 14:03:00* Test Item Value Reference Range Interpretation Comme nts WHITE BLOOD CELL (test code = WBC) 2.1 x10 3/uL 5.0-12.0 L RED BLOOD CELL (test code = RBC) 3.04 x10 6/uL 4.70-6.10 L HEMOGLOBIN (test code = HGB) 7.3 g/dL 14.0-18.0 L HEMATOCRIT (test code = HCT) 24.4 % 37.0-49.0 L MEAN CELL VOLUME (test code = MCV) 80 fL 80-94 N MEAN CELL HGB (test code = MCH) 24.0 pg 27-31 L MEAN CELL HGB CONCENTRATION (test code = MCHC) 29.9 g/dL 33-37 L RED CELL DISTRIBUTION WIDTH (test code = RDW) 16.7 % 11.5-15.5 H PLATELET COUNT (test code = PLT) 62 x10 3/uL 130-400 L MEAN PLATELET VOLUME (test c ode = MPV) 11.0 fL 9.4-16.4 N NEUTROPHIL % (test code = NT%) 69.4 % 43-65 H IMMATURE GRANULOCYTE % (test code = IG%) 0.5 % 0.0-2.0 N LYMPHOCYTE % (test code = LY%) 16.0 % 20.5-45.5 L MONOCYTE % (test code = MO%) 12.1 % 5.5-11.7 H EOSINOPHIL % (test code = EO%) 1.5 % 0.9-2.9 N BASOPHIL % (test code = BA%) 0.5 % 0.2-1.0 N NUCLEATED RBC % (test code = NRBC%) 0.0 % 0-1.0 N NEUTROPHIL # (test code = NT#) 1.43 x10 3/uL 2.2-4.8 L IMMATURE GRANULOCYTE # (test code = IG#) 0.01 x10 3/uL 0-0.03 N LYMPHOCYTE # (test code = LY#) 0.33 x10 3/uL 1.3-2.9 L MONOCYTE # (test code = MO#) 0.25 x10 3/uL 0.3-0.8 L EOSINOPHIL # (test code = EO#) 0.03 x10 3/uL 0.0-0.2 N BASOPHIL # (test code = BA#) 0.01 x10 3/uL 0.0-0.1 N BASIC METABOLIC [id number] 14:28:00* Test Item Value Reference Range Interpretation Comme nts SODIUM (test code = NA) 130 mmol/L 137-145 L POTASSIUM (test code = K) 4.0 mmol/L 3.4-5.0 N CHLORIDE (test code = CL) 102 mmol/L 98-107 N CARBON DIOXIDE (test code = CO2) 27 mmol/L 22-30 N ANION GAP (test code = GAP) 5 mmol/L 10-20 L GLUCOSE (test code = GLU) 183 mg/dL 74-106 H BLOOD UREA NITROGEN (test code = BUN) 14 mg/dL 9-20 N GLOMERULAR FILTRATION RATE (test code = GFR) 94 mL/min The Glomerular Filtration Rate is a calculated parameterbased on serum Creatinine, patient age and sex. GFR valuesless than 60 mL/min/1.73 square meters are indicative ofChronic Kidney Disease. Values less than 15 mL/min/1.73square meters indicate Kidney failure. The calculation forGFR is based on the CKD-EPI (2020) calculation. This formulais race indifferent and is the recommended formula for GFRby the National Kidney Foundation for Adults.The GFR will not calculate if the sex is unknown or if thepatient's age is <18 years. CREATININE (test code = CREAT) 0.7 mg/dL 0.7-1.3 N CALCIUM (test code = CA) 8.6 mg/dL 8.4-10.2 N INDEX HEMOLYSIS (test code = HEMINDEX) < 15 Index/DL 0-100 N LIVER FUNCTION [id number] 14:28:00* Test Item Value Reference Range Interpretation Comme nts TOTAL PROTEIN (test code = PROT) 6.8 g/dL 6.3-8.2 N "A positive bias may occur for patients taking Eltrombopag(a bone marrow stimulant used to treat thrombocytopenia andaplastic anemia)." ALBUMIN (test code = ALB) 3.3 g/dL 3.5-5.0 L BILIRUBIN TOTAL (test code = BILT) 1.1 mg/dL 0.2-1.3 N "A positive b ias may occur for patients taking Eltrombopag(a bone marrow stimulant used to treat thrombocytopenia andaplastic anemia)." BILIRUBIN CONJUGATED (test code = BILCON) 0 mg/dL 0-0.3 N "A positive bias may occur for patients taking Eltrombopag(a bone marrow stimulant used to treat thrombocytopenia andaplastic anemia)." CONJUGATED BILIRUBIN IS THE REPLACEMENT ASSAY FOR DIRECTBILIRUBIN. BILIRUBIN UNCONJUGATED (test code = BILUNC) 0.9 mg/dL 0-1.1 N SGOT/AST (test code = AST) 30 U/L 15-46 N SGPT/ALT (test code = ALT) 20 U/L 0-49 N ALKALINE PHOSPHATASE (test code = ALKP) 95 U/L 38-126 N [id number] 14:28:00* Test Item Value Reference Range Interpretation Comme nts LIPASE (test code = LIP) 168 U/L 23-300 N [id number] 14:07:00* Test Item Value Reference Range Interpretation Comme nts TROPONIN-I (test code = TROPI) < 0.012 ng/mL 0.012-0.033 L Please be advised of the updated reference ranges for the new Chemistry instrumentation. VITROS TROPONIN I CRITERIANORMAL PATIENT W/O CIRCULATING TNI: 0.012-0.033 ng/mLAMI DIAGNOSTIC CUTOFF: >/= 0.120 ng/mL~~~~~~~~~~~~~~~~~~~~~~ ~~~~~~~~~~~~~~~~~~~~~~~~~~~ ~~~~~~~~~~The use of serial sampling and testing protocol is arecommended practice.An elevated troponin level alone is often not sufficient fordiagnosis of myocardial infarction. Troponin results obtained by different assays may vary.Evaluation of the extent of myocardial damage based onincrease of troponin would be valid only if similarmethodology is used.~~~~~~~~~~~~~~~~~~~~~~ ~~~~~~~~~~~~~~~~~~~~~~~~~~~ ~~~~~~~~~~ A POSITIVE BIAS MAY OCCUR FOR PATIENTS TAKING BIOTIN SUPPLEMENTS~~~~~~~~~~~~~~~~ ~~~~~~~~~~~~~~~~~~~~~~~~~~~ ~~~~~~~~~~~~~~~~ URINALYSIS [id number] 14:04:00* Test Item Value Reference Range Interpretation Comme nts UA COLOR (test code = COLU) Yellow Yellow UA APPEARANCE (test code = APPU) Turbid Clear A UA GLUCOSE DIPSTICK (test code = DGLUU) 500 Negative UA BILIRUBIN DIPSTICK (test code = BILU) Negative Negative UA KETONE DIPSTICK (test code = KETU) Negative mg/dL Negative UA SPECIFIC GRAVITY (test code = SGU) 1.021 <1.030 UA BLOOD DIPSTICK (test code = CHITO) Negative Negative UA PH DIPSTICK (test code = LUCY) 7.5 5.0-8.0 UA PROTEIN DIPSTICK (test code = PROU) 30 (1+) mg/dL Negative A UA UROBILINOGEN DIPSTICK (test code = URO) 12 mg/dL Negative UA NITRITE DIPSTICK (test code = CHRISSY) Negative Negative UA LEUKOCYTE ESTERASE DIPSTICK (test code = LEUU) NEGATIVE Negative UA WBC (test code = WBCU) 4-5 /HPF See_Comment A [Automated message] The system which generated this result transmitted reference range: <4-5. The reference range was not used to interpret this result as normal/abnormal. UA RBC (test code = RBCU) 0-3 /HPF See_Comment [Automated message] The system which generated this result transmitted reference range: <4-5. The reference range was not used to interpret this result as normal/abnormal. UA BACTERIA (test code = BACU) None /HPF None-Rare UA SQUAMOUS CELLS (test code = SQU) 0-5 (RARE) /HPF See_Comment [Automated message] The system which generated this result transmitted reference range: 0-5 (RARE). The reference range was not used to interpret this result as normal/abnormal. UA CALCIUM OXALATE CRYSTALS (test code = CAOXU) Rare /HPF None A UA HYALINE CAST (test code = HYALU) 4-5 /LPF See_Comment A [Automated message] The system which generated this result transmitted reference range: <4-5. The reference range was not used to interpret this result as normal/abnormal. UA MUCUS (test code = MUCU) 1+ /LPF See_Comment A [Automated message] The system which generated this result transmitted reference range: <Rare. The reference range was not used to interpret this result as normal/abnormal. [id number] 11:56:00* Test Item Value Reference Range Interpretation Comme nts GLUBED (test code = GLUBED) 129 MG/DL 74-106 H COMPREHENSIVE METABOLIC [id number] 10:01:00* Test Item Value Reference Range Interpretation Comme nts SODIUM (test code = NA) 137 mmol/L 137-145 N POTASSIUM (test code = K) 4.6 mmol/L 3.4-5.0 N CHLORIDE (test code = CL) 110 mmol/L 98-107 H CARBON DIOXIDE (test code = CO2) 24 mmol/L 22-30 N ANION GAP (test code = GAP) 8 mmol/L 10-20 L GLUCOSE (test code = GLU) 143 mg/dL 74-106 H BLOOD UREA NITROGEN (test code = BUN) 27 mg/dL 9-20 H GLOMERULAR FILTRATION RATE (test code = GFR) 78 mL/min The Glomerular Filtration Rate is a calculated parameterbased on serum Creatinine, patient age and sex. GFR valuesless than 60 mL/min/1.73 square meters are indicative ofChronic Kidney Disease. Values less than 15 mL/min/1.73square meters indicate Kidney failure. The calculation forGFR is based on the CKD-EPI (202) calculation. This formulais race indifferent and is the recommended formula for GFRby the National Kidney Foundation for Adults.The GFR will not calculate if the sex is unknown or if thepatient's age is <18 years. CREATININE (test code = CREAT) 1.0 mg/dL 0.7-1.3 N TOTAL PROTEIN (test code = PROT) 6.5 g/dL 6.3-8.2 N "A positive bias may occur for patients taking Eltrombopag(a bone marrow stimulant used to treat thrombocytopenia andaplastic anemia)." ALBUMIN (test code = ALB) 3.3 g/dL 3.5-5.0 L CALCIUM (test code = CA) 9.1 mg/dL 8.4-10.2 N BILIRUBIN TOTAL (test code = BILT) 0.5 mg/dL 0.2-1.3 N "A positive b ias may occur for patients taking Eltrombopag(a bone marrow stimulant used to treat thrombocytopenia andaplastic anemia)." BILIRUBIN CONJUGATED (test code = BILCON) 0 mg/dL 0-0.3 N "A positive bias may occur for patients taking Eltrombopag(a bone marrow stimulant used to treat thrombocytopenia andaplastic anemia)." CONJUGATE D BILIRUBIN IS THE REPLACEMENT ASSAY FOR DIRECTBILIRUBIN. BILIRUBIN UNCONJUGATED (test code = BILUNC) 0.4 mg/dL 0-1.1 N SGOT/AST (test code = AST) 21 U/L 15-46 N SGPT/ALT (test code = ALT) 26 U/L 0-49 N ALKALINE PHOSPHATASE (test code = ALKP) 63 U/L 38-126 N INDEX HEMOLYSIS (test code = HEMINDEX) < 15 Index/DL 0-100 N PROTHROMBIN [id number] 09:52:00* Test Item Value Reference Range Interpretation Comme nts PROTHROMBIN TIME PATIENT (test code = PTP) 13.9 SECONDS 9.4-12.5 H INTERNATIONAL NORMAL RATIO (test code = INR) 1.3 The INR is to be used only for monitoring ORAL ANTICOAGULANTTHERAPY. Indication INR Value1. Prophylaxis/treatment of: Venous Thrombosis, Pulmonary Embolism 2.0 - 3.02. Prevention of systemic embolism from: Tissue heart valves 2.0 - 3.0 Acute myocardial infarction (to present systemic embolism)* 2.0 - 3.0 Valvular heart disease 2.0 - 3.0 Atrial fibrillation 2.0 - 3.03. Mechanical prosthetic valves (high risk) 2.5 - 3.5 * If oral anticoagulant therapy is elected to preventrecurrent myocardial infarction, an INR of 2.5-3.5 isrecommended, consistent with Food and Drug Administrationrecommen dations. THROMBOPLASTIN TIME [id number] 09:52:00* Test Item Value Reference Range Interpretation Comme nts THROMBOPLASTIN TIME PARTIAL (test code = PTT) 33.7 SECONDS 23.4-37.0 N Therapeutic Rang e for Heparin EFFECTIVE 10/22/12 Heparin IU/mL aPTT Seconds0.3 64.30.7 88.8 CBC W/AUTO [id number] 09:45:00* Test Item Value Reference Range Interpretation Comme nts WHITE BLOOD CELL (test code = WBC) 3.3 x10 3/uL 5.0-12.0 L RED BLOOD CELL (test code = RBC) 3.48 x10 6/uL 4.70-6.10 L HEMOGLOBIN (test code = HGB) 10.2 g/dL 14.0-18.0 L HEMATOCRIT (test code = HCT) 31.1 % 37.0-49.0 L MEAN CELL VOLUME (test code = MCV) 89 fL 80-94 N MEAN CELL HGB (test code = MCH) 29.3 pg 27-31 N MEAN CELL HGB CONCENTRATION (test code = MCHC) 32.8 g/dL 33-37 L RED CELL DISTRIBUTION WIDTH (test code = RDW) 16.4 % 11.5-15.5 H PLATELET COUNT (test code = PLT) 75 x10 3/uL 130-400 L MEAN PLATELET VOLUME (test c ode = MPV) 10.9 fL 9.4-16.4 N NEUTROPHIL % (test code = NT%) 62.3 % 43-65 N IMMATURE GRANULOCYTE % (test code = IG%) 0.0 % 0.0-2.0 N LYMPHOCYTE % (test code = LY%) 27.9 % 20.5-45.5 N MONOCYTE % (test code = MO%) 6.4 % 5.5-11.7 N EOSINOPHIL % (test code = EO%) 3.1 % 0.9-2.9 H BASOPHIL % (test code = BA%) 0.3 % 0.2-1.0 N NUCLEATED RBC % (test code = NRBC%) 0.0 % 0-1.0 N NEUTROPHIL # (test code = NT#) 2.03 x10 3/uL 2.2-4.8 L IMMATURE GRANULOCYTE # (test code = IG#) 0.00 x10 3/uL 0-0.03 N LYMPHOCYTE # (test code = LY#) 0.91 x10 3/uL 1.3-2.9 L MONOCYTE # (test code = MO#) 0.21 x10 3/uL 0.3-0.8 L EOSINOPHIL # (test code = EO#) 0.10 x10 3/uL 0.0-0.2 N BASOPHIL # (test code = BA#) 0.01 x10 3/uL 0.0-0.1 N - US ABDOMEN [id number] 08:56:00 [facility] 1945 Sex: M FAX: Moncho Dee DO [phone] [place]: [facility]: ADM FAX: Monika Landa MD Name: JOEL PARDOCAMRON [facility] : 1945 Age/S: 77/M [address] Unit #: [id number] Loc: C.[address] [place] [address] Phys: Monika Landa MD R2 Acct: [id number] Dis Date: Status: ADM IN PHONE #: [phone] Exam Date: 10/18/2023814 FAX #: [phone] Reason: Ascites? EXAMS: CPT CODE: [id number] US ABDOMEN LTD [id number] PROCEDURE INFORMATION: Exam: US Abdomen; Limited Exam date and time: 10/18/2023 7:59 AM Age: 77 years old Clinical indication: Ascites: TECHNIQUE: Imaging protocol: Real time ultrasound of the abdomenwith image documentation. Limited exam focused on the region of clinical interest. COMPARISON: CT PELVIS W/O CONTRAST 09/07/2023 3:32 PM Ultrasound examination of the 4 quadrants of the abdomen showedno significant ascites. Impression: Ultrasound examination of the 4 quadrants of the abdomen showed no significant ascites. at 0856 Reported and signed by: Scott Tong MD CC: Moncho Dee DO; Monika Landa MD Technologist: ELI JAIN Trnderd Date/Time/By: 10/18/2023 (0856) : By: [email or web address] PAGE 1 Signed Report FAX: Moncho Dee DO [phone] [place]: St: ADM FAX: Monika Landa MD Name: JOEL PARDOCAMRON [facility] : 1945 Age/S: 77/M [address] Unit #: [id number] Loc: C.[address] [place] [address] Phys: Monika Landa MD R2 Acct: [id number] Dis Date: Status: ADM IN PHONE #: [phone] Exam Date: 10/18/2023814 FAX #: [phone] Reason: Ascites? EXAMS: CPT CODE: [id number] US ABDOMEN LTD [id number] (Continued) Orig Print D/T: S: 10/18/2023 (0856) PAGE 2 Signed [id number] 06:31:00* Test Item Value Reference Range Interpretation Comme nts GLUBED (test code = GLUBED) 292 MG/DL 74-106 H [id number] 05:31:00* Test Item Value Reference Range Interpretation Comme nts GLUBED (test code = GLUBED) 317 MG/DL 74-106 H POC VENOUS BLOOD [id number] 00:01:00* Test Item Value Reference Range Interpretation Comme nts POC IONIZED CALCIUM (test code = POCCA) 1.10 MMOL/L 1.15-1.33 L POC VENOUS BLOOD GAS PH (shelby t code = POCPHV) 7.30 7.31-7.41 L POC VENOUS BLOOD GAS PCO2 (test code = AZUCQU6C) 41.7 mm/Hg 41-51 N POC VENOUS BLOOD GAS PO2 (test code = EQFSP1F) 143.6 mm/Hg 30-40 H POC HCO3 VENOUS (test code = IAJMYV0M) 20.6 mmol/L 23-28 L POC BASE EXCESS VENOUS (test code = POCBEV) -5.5 mmol/L -2-+3 L POC O2 SATURATION VENOUS (test code = LCFG2VN) 99.0 % 50.0-80.0 H SODIUM (test code = NA/VBG) 138 mmol/l 138-146 N POTASSIUM (test code = K/VBG) 4.9 mmol/L 3.5-4.5 H CHLORIDE (test code = CL/VBG) 106 MEQ/L GLUCOSE (test code = GLU/VBG) 321 mg/dL 74-100 H POC SAMPLE SOURCE (test code = POCSAMPLE) Venous Descript Specimen LACTIC ACID POC (test code = LACTP) mmOL/l 0.9-1.7 BASIC METABOLIC [id number] 20:15:00* Test Item Value Reference Range Interpretation Comme nts SODIUM (test code = NA) 131 mmol/L 137-145 L POTASSIUM (test code = K) 5.3 mmol/L 3.4-5.0 H CHLORIDE (test code = CL) 104 mmol/L 98-107 N CARBON DIOXIDE (test code = CO2) 21 mmol/L 22-30 L ANION GAP (test code = GAP) 12 mmol/L 10-20 N GLUCOSE (test code = GLU) 460 mg/dL 74-106 HH BLOOD UREA NITROGEN (test code = BUN) 39 mg/dL 9-20 H GLOMERULAR FILTRATION RATE (test code = GFR) 62 mL/min The Glomerular Filtration Rate is a calculated parameterbased on serum Creatinine, patient age and sex. GFR valuesless than 60 mL/min/1.73 square meters are indicative ofChronic Kidney Disease. Values less than 15 mL/min/1.73square meters indicate Kidney failure. The calculation forGFR is based on the CKD-EPI (2020) calculation. This formulais race indifferent and is the recommended formula for GFRby the National Kidney Foundation for Adults.The GFR will not calculate if the sex is unknown or if thepatient's age is <18 years. CREATININE (test code = CREAT) 1.2 mg/dL 0.7-1.3 N CALCIUM (test code = CA) 9.0 mg/dL 8.4-10.2 N INDEX HEMOLYSIS (test code = HEMINDEX) 27 Index/DL 0-100 N LIVER FUNCTION [id number] 20:15:00* Test Item Value Reference Range Interpretation Comme nts TOTAL PROTEIN (test code = PROT) 6.9 g/dL 6.3-8.2 N "A positive bias may occur for patients taking Eltrombopag(a bone marrow stimulant used to treat thrombocytopenia andaplastic anemia)." ALBUMIN (test code = ALB) 3.5 g/dL 3.5-5.0 N BILIRUBIN TOTAL (test code = BILT) 0.6 mg/dL 0.2-1.3 N "A positive b ias may occur for patients taking Eltrombopag(a bone marrow stimulant used to treat thrombocytopenia andaplastic anemia)." BILIRUBIN CONJUGATED (test code = BILCON) 0 mg/dL 0-0.3 N "A positive bias may occur for patients taking Eltrombopag(a bone marrow stimulant used to treat thrombocytopenia andaplastic anemia)." CONJUGATED BILIRUBIN IS THE REPLACEMENT ASSAY FOR DIRECTBILIRUBIN. BILIRUBIN UNCONJUGATED (test code = BILUNC) 0.4 mg/dL 0-1.1 N SGOT/AST (test code = AST) 24 U/L 15-46 N SGPT/ALT (test code = ALT) 31 U/L 0-49 N ALKALINE PHOSPHATASE (test code = ALKP) 76 U/L 38-126 N NT PRO-BRAIN NATRIURETIC [id number] 20:15:00* Test Item Value Reference Range Interpretation Comme nts NT PRO-BRAIN NATRIURETIC PEPTI (test code = PROBNP) 314 pg/mL See_Comment N INTERPRETATION O F RESULTS Results of this test should be used in accordance with the appropriate clinical guidelines and in conjunction with clinical presentation and other diagnostic tests. Clinical guidelines recommend using natriuretic peptides in both Emergency Department (ED) and outpatient settings for diagnosis or exclusion of heart failure (HF). The performance of the VITROS NT-proBNP II test was evaluated separately in each of these settings using published age-independent and age-dependent cutoffs. EMERGENCY DEPARTMENT SETTINGS/INPATIENT: For patients presenting to the ED settings with acute or worsening dyspnea and clinical suspicion of HF, the VITROS NT-proBNP II test results should be interpreted as indicatedin the table below. ========Results(pg/mL) Age Group *Interpretation <300 All *Negative: Heart Failure Unlikely >=450 22-<50 * POSITIVE: Heart Failure >=900 50-<75 Likely >=1800 >=75 --------OUTPATIENT SETTINGS: In the outpatient settings, the optimal use of natriuretic peptides is to exclude HF. Therefore, a lower rule-out cutoff which increases sensitivity and negative predictive value is needed, as patients can present with limited, less acute HF symptoms. For ambulatory patients presenting to outpatient facilitieswith clinical suspicion of HF not previously diagnosed andat least one sign, symptom or risk factor for HF, the VITROSNT-proBNP II test results should be interpreted as indicatedin the table below: Results(pg/mL) Age Group *Interpretation <125 ALL * Negative - Heart Failure Unlikely >=125 ALL * Consider Heart Failure as well as other causes of NT-ProBNP elvation. The following interferents causes a bias at concentrationslisted in procedure. -Cefoxitin sodium -Sodium Azide [Automated message] The system which generated this result transmitted reference range: <20.0-326. The reference range was not used to interpret this result as normal/abnormal. [id number] 20:15:00* Test Item Value Reference Range Interpretation Comme nts TROPONIN-I (test code = TROPI) < 0.012 ng/mL 0.012-0.033 L Please be advised of the updated reference ranges for the new Chemistry instrumentation. VITROS TROPONIN I CRITERIANORMAL PATIENT W/O CIRCULATING TNI: 0.012-0.033 ng/mLAMI DIAGNOSTIC CUTOFF: >/= 0.120 ng/mL~~~~~~~~~~~~~~~~~~~~~~ ~~~~~~~~~~~~~~~~~~~~~~~~~~~ ~~~~~~~~~~The use of serial sampling and testing protocol is arecommended practice.An elevated troponin level alone is often not sufficient fordiagnosis of myocardial infarction. Troponin results obtained by different assays may vary.Evaluation of the extent of myocardial damage based onincrease of troponin would be valid only if similarmethodology is used.~~~~~~~~~~~~~~~~~~~~~~ ~~~~~~~~~~~~~~~~~~~~~~~~~~~ ~~~~~~~~~~ A POSITIVE BIAS MAY OCCUR FOR PATIENTS TAKING BIOTIN SUPPLEMENTS~~~~~~~~~~~~~~~~ ~~~~~~~~~~~~~~~~~~~~~~~~~~~ ~~~~~~~~~~~~~~~~ UA RFLX MICR CULT IF [id number] 20:07:00* Test Item Value Reference Range Interpretation Comme nts UA COLOR (test code = COLU) Colorless Yellow UA APPEARANCE (test code = APPU) Clear Clear UA GLUCOSE DIPSTICK (test code = DGLUU) OVER Negative UA BILIRUBIN DIPSTICK (test code = BILU) Negative Negative UA KETONE DIPSTICK (test code = KETU) Negative mg/dL Negative UA SPECIFIC GRAVITY (test code = SGU) 1.028 <1.030 UA BLOOD DIPSTICK (test code = CHITO) TRACE Negative UA PH DIPSTICK (test code = LUCY) 5.0 5.0-8.0 UA PROTEIN DIPSTICK (test code = PROU) NEGATIVE mg/dL Negative UA UROBILINOGEN DIPSTICK (test code = URO) Negative mg/dL Negative UA NITRITE DIPSTICK (test code = CHRISSY) Negative Negative UA LEUKOCYTE ESTERASE DIPSTICK (test code = LEUU) 1+ Negative A UA WBC (test code = WBCUR) 0-3 /HPF See_Comment <10 WBC/HPF = PYURIA ABSENT URINE CULTURE NOT INDICATED [Automated message] The system which generated this result transmitted reference range: <4-5. The reference range was not used to interpret this result as normal/abnormal. UA RBC (test code = RBCU) 4-5 /HPF See_Comment A [Automated message] The system which generated this result transmitted reference range: <4-5. The reference range was not used to interpret this result as normal/abnormal. UA BACTERIA (test code = BACU) None /HPF None-Rare UA SQUAMOUS CELLS (test code = SQU) 0-5 (RARE) /HPF See_Comment [Automated message] The system which generated this result transmitted reference range: 0-5 (RARE). The reference range was not used to interpret this result as normal/abnormal. Indication for culture: RiskForSepsis-no oth srcSOURCE OF URINE: CLEAN CATCH LACTIC [id number] 20:06:00* Test Item Value Reference Range Interpretation Comme nts LACTIC ACID (test code = LACT) 1.9 mmol/L 0.7-2.0 N CBC W/AUTO [id number] 19:51:00* Test Item Value Reference Range Interpretation Comme nts WHITE BLOOD CELL (test code = WBC) 3.4 x10 3/uL 5.0-12.0 L RED BLOOD CELL (test code = RBC) 3.63 x10 6/uL 4.70-6.10 L HEMOGLOBIN (test code = HGB) 10.5 g/dL 14.0-18.0 L HEMATOCRIT (test code = HCT) 31.9 % 37.0-49.0 L MEAN CELL VOLUME (test code = MCV) 88 fL 80-94 N MEAN CELL HGB (test code = MCH) 28.9 pg 27-31 N MEAN CELL HGB CONCENTRATION (test code = MCHC) 32.9 g/dL 33-37 L RED CELL DISTRIBUTION WIDTH (test code = RDW) 16.0 % 11.5-15.5 H PLATELET COUNT (test code = PLT) 75 x10 3/uL 130-400 L MEAN PLATELET VOLUME (test c ode = MPV) 11.4 fL 9.4-16.4 N NEUTROPHIL % (test code = NT%) 63.3 % 43-65 N IMMATURE GRANULOCYTE % (test code = IG%) 0.3 % 0.0-2.0 N LYMPHOCYTE % (test code = LY%) 23.3 % 20.5-45.5 N MONOCYTE % (test code = MO%) 10.2 % 5.5-11.7 N EOSINOPHIL % (test code = EO%) 2.6 % 0.9-2.9 N BASOPHIL % (test code = BA%) 0.3 % 0.2-1.0 N NUCLEATED RBC % (test code = NRBC%) 0.0 % 0-1.0 N NEUTROPHIL # (test code = NT#) 2.17 x10 3/uL 2.2-4.8 L IMMATURE GRANULOCYTE # (test code = IG#) 0.01 x10 3/uL 0-0.03 N LYMPHOCYTE # (test code = LY#) 0.80 x10 3/uL 1.3-2.9 L MONOCYTE # (test code = MO#) 0.35 x10 3/uL 0.3-0.8 N EOSINOPHIL # (test code = EO#) 0.09 x10 3/uL 0.0-0.2 N BASOPHIL # (test code = BA#) 0.01 x10 3/uL 0.0-0.1 N - XR CHEST 1 [id number] 18:57:00 [facility] : 1945 Sex: M FAX: Dakota Ferguson [place]: St: REG Name: CAMRON MALDONADO III : 1945 Age/S: 77/M [address] Unit #: [id number] Loc: [place] [address] Phys: Dakota Ferguson Acct: [id number] Dis Date: Status: REG ER PHONE #: [phone] Exam Date: 10/17/20231822 FAX #: [phone] Reason: CODE SEPSIS EXAMS: CPT CODE: [id number] XR CHEST 1 V 58651 PROCEDURE INFORMATION: Exam: XR Chest Exam date and time: 10/17/2023 6:22 PM Age: 77 years old Clinical indication: Code sepsis TECHNIQUE: Imaging protocol: Radiologic exam of the chest. Views: 1 view. COMPARISON: CTA CHEST 06/10/2023 4:55 PM FINDINGS: Lungs: Stable linear scar left lung base. Lungs otherwise clear. Pleural spaces: No pleural effusion. No pneumothorax. Heart/Mediastinum: Cardiomediastinal silhouette is enlarged and stable.Bones/joints: No acute bony finding. IMPRESSION: No evidence for acute cardiopulmonary disease. at 1857 Reported and signed by: Eduardo Cunha MD CC: Dakota Ferguson DO Technologist: SAYRA Looney Trnderd Date/Time/By: 10/17/2023 (1856) : By: [email or web address] PAGE 1 Signed Report FAX: Dakota Ferguson [place]: St: REG----- Name: SHAISTA MALDONADO III : 1945 Age/S: 77/M [address] Unit #: [id number] Loc: [place] [address] Phys: Dakota Ferguson DO R2 Acct: [id number] Dis Date: Status: REG ER PHONE #: [phone] Exam Date: 10/17/2023 1823 FAX #: [phone] Reason: CODE SEPSIS EXAMS: CPT CODE: [id number] XR CHEST 1 V 15035 (Continued) Orig Print D/T: S: 10/17/2023 (185) PAGE 2 Signed [id number] 13:11:00* Test Item Value Reference Range Interpretation Comme nts GLUBED (test code = GLUBED) 244 MG/DL 74-106 H [id number] 09:24:00* Test Item Value Reference Range Interpretation Comme nts GLUBED (test code = GLUBED) 164 MG/DL 74-106 H BASIC METABOLIC [id number] 06:00:00* Test Item Value Reference Range Interpretation Comme nts SODIUM (test code = NA) 137 mmol/L 137-145 N POTASSIUM (test code = K) 4.2 mmol/L 3.4-5.0 N CHLORIDE (test code = CL) 107 mmol/L 98-107 N CARBON DIOXIDE (test code = CO2) 24 mmol/L 22-30 N ANION GAP (test code = GAP) 10 mmol/L 10-20 N GLUCOSE (test code = GLU) 150 mg/dL 74-106 H BLOOD UREA NITROGEN (test code = BUN) 15 mg/dL 9-20 N GLOMERULAR FILTRATION RATE (test code = GFR) 99 mL/min The Glomerular Filtration Rate is a calculated parameterbased on serum Creatinine, patient age and sex. GFR valuesless than 60 mL/min/1.73 square meters are indicative ofChronic Kidney Disease. Values less than 15 mL/min/1.73square meters indicate Kidney failure. The calculation forGFR is based on the CKD-EPI (2020) calculation. This formulais race indifferent and is the recommended formula for GFRby the National Kidney Foundation for Adults.The GFR will not calculate if the sex is unknown or if thepatient's age is <18 years. CREATININE (test code = CREAT) 0.6 mg/dL 0.7-1.3 L CALCIUM (test code = CA) 8.5 mg/dL 8.4-10.2 N INDEX HEMOLYSIS (test code = HEMINDEX) < 15 Index/DL 0-100 N [id number] 06:00:00* Test Item Value Reference Range Interpretation Comme nts MAGNESIUM (test code = MAG) 1.9 mg/dL 1.6-2.3 N CBC W/AUTO [id number] 05:33:00* Test Item Value Reference Range Interpretation Comme nts WHITE BLOOD CELL (test code = WBC) 2.8 x10 3/uL 5.0-12.0 L RED BLOOD CELL (test code = RBC) 3.89 x10 6/uL 4.70-6.10 L HEMOGLOBIN (test code = HGB) 11.5 g/dL 14.0-18.0 L HEMATOCRIT (test code = HCT) 35.8 % 37.0-49.0 L MEAN CELL VOLUME (test code = MCV) 92 fL 80-94 N MEAN CELL HGB (test code = MCH) 29.6 pg 27-31 N MEAN CELL HGB CONCENTRATION (test code = MCHC) 32.1 g/dL 33-37 L RED CELL DISTRIBUTION WIDTH (test code = RDW) 15.6 % 11.5-15.5 H PLATELET COUNT (test code = PLT) 60 x10 3/uL 130-400 L MEAN PLATELET VOLUME (test c ode = MPV) 9.8 fL 9.4-16.4 N NEUTROPHIL % (test code = NT%) 66.5 % 43-65 H IMMATURE GRANULOCYTE % (test code = IG%) 0.0 % 0.0-2.0 N LYMPHOCYTE % (test code = LY%) 21.0 % 20.5-45.5 N MONOCYTE % (test code = MO%) 10.0 % 5.5-11.7 N EOSINOPHIL % (test code = EO%) 2.1 % 0.9-2.9 N BASOPHIL % (test code = BA%) 0.4 % 0.2-1.0 N NUCLEATED RBC % (test code = NRBC%) 0.0 % 0-1.0 N NEUTROPHIL # (test code = NT#) 1.87 x10 3/uL 2.2-4.8 L IMMATURE GRANULOCYTE # (test code = IG#) 0.00 x10 3/uL 0-0.03 N LYMPHOCYTE # (test code = LY#) 0.59 x10 3/uL 1.3-2.9 L MONOCYTE # (test code = MO#) 0.28 x10 3/uL 0.3-0.8 L EOSINOPHIL # (test code = EO#) 0.06 x10 3/uL 0.0-0.2 N BASOPHIL # (test code = BA#) 0.01 x10 3/uL 0.0-0.1 N [id number] 20:11:00* Test Item Value Reference Range Interpretation Comme nts GLUBED (test code = GLUBED) 193 MG/DL 74-106 H [id number] 17:24:00* Test Item Value Reference Range Interpretation Comme nts GLUBED (test code = GLUBED) 253 MG/DL 74-106 H - DUP EXTRACRANIAL [id number] 16:29:00 [facility] : 1945 Sex: M FAX: Анна Mendoza DO [place]: St: ADM FAX: Teresa Velasco MD Name: CAM[facility]DONADO [facility] [place] : 1945 Age/S: 77/M [address] Unit #: [id number] Loc: [place] [address] Phys: Анна Mendoza DO R1 Acct: [id number] Dis Date: Status: ADM IN PHONE #: [phone] Exam Date: 09/10/2023 0932 FAX #: [phone] Reason: recurrent falls EXAMS: CPT CODE: [id number] DUP EXTRACRANIAL DANNIE 12822 Location: C3 EXAM: - DUP EXTRACRANIAL DANNIE INDICATION: recurrent falls COMPARISON: None TECHNIQUE:Multiplanar grayscale, color Doppler and spectral Doppler ultrasound of the carotid and vertebral ar teries. FINDINGS: Right Carotid System: Right Common Carotid Artery (RCCA): Peak systolic velocity (PSV) of 90 cm/s. Right Internal Carotid Artery (NATHALIE): PSV of 67 cm/s. There is atheromatous plaque. Right External Carotid Artery (RECA): PSV of 75 cm/s. ICA/CCA RATIO: 0.7 Right Vertebral Artery (RVA): Antegrade flow. Left Carotid System: Left Common Carotid Artery (LCCA): PSV of 85 cm/s. Left Int ernal Carotid Artery (LICA): PSV of 70 cm/s. There is atheromatous plaque. Left External Carotid Artery (LECA): PSV of 92 cm/s. ICA/CCA RATIO: 0.8 Left Vertebral Artery (LVA): Antegrade flow. IMPRESSION: Right internal carotid artery: <50% stenosis. Left internal carotid artery: <50% stenosis. Vertebral arteries: Antegrade flow with bilaterally. According to the 2003 Consensus criteria: <50% stenosis: PSV <125 cm/sec, EDV <40cm/sec, ICA:CCA ratio <2 50- 69% stenosis: PSV 125-230cm/sec, EDV 40-100cm/sec, ICA:CCA ratio 2-4 >70% stenosis: PSV >230cm/sec, EDV >100cm/sec, ICA:CCA ratio >4 REFERENCE: Radiology. [phone]:340-346. Carotid Artery Stenosis: Villaseñor-scale and PAGE 1 Signed Report (CONTINUED) [facility] [place]: St: ADM FAX: Teresa Velasco MD Name: JOEL PARDOCAMRON [facility] : 1945 Age/S: 77/M [address] Unit #: [id number] [facility] [place] [address] Phys: [place] [address] Acct: [id number] Dis Date: Status: ADM IN PHONE #: [phone] Exam Date: 09/10/2023 0932 FAX #: [phone] Reason: recurrent falls EXAMS: CPT CODE: [id number] DUP EXTRACRANIAL DANNIE 22340 (Continued) Doppler US diagnosis- Society of Radiologists in Ultrasound Consensus Conference. Juwan EG, Kadeem CB, Oscar GL, et. al. at 8809 Reported and signed by: Javon Conti MD CC: [place] [address] [address] ; Teresa Velasco MD Technologist: JACLYN MCKEON Date/Time/By: 09/10/2023 (0009) : By: [email or web address] PAGE 2 Signed Report [facility]: [facility] [place]: St: ADM FAX: Teresa Velasco MD Name: JOELCAMRON [facility] : 1945 Age/S: 77/M [address] Unit #: [id number]: [id number] [place] [address] Phys: Анна Mendoza DO R1 Acct: [id number] Dis Date: Status: ADMIN PHONE #: [phone] Exam Date: 09/10/2023 0932 FAX #: [phone] Reason: recurrent falls EXAMS: CPT CODE: [id number] DUP EXTRACRANIAL DANNIE [id number] (Continued) Orig Print D/T: S: 09/10/2023 (1632)PAGE 3 Signed [id number] 12:49:00* Test Item Value Reference Range Interpretation Comme nts GLUBED (test code = GLUBED) 275 MG/DL 74-106 H [id number] 12:42:00* Test Item Value Reference Range Interpretation Comme nts GLUBED (test code = GLUBED) 302 MG/DL 74-106 H VITAMIN D [id number] 11:09:00* Test Item Value Reference Range Interpretation Comme nts VITAMIN D 25-HYDROXY (test code = VITD25) 37.2 ng/mL 30.0-100.0 Vitamin D defici ency has been defined by the [place] ofMedicine and an Endocrine Society practice guideline as alevel of serum 25-OH vitamin D less than 20 ng/mL (1,2).The Endocrine Society went on to further define vitamin Dinsufficiency as a level between 21 and 29 ng/mL (2).1. IOM ([place] of Medicine). 2010. Dietary reference intakes for calcium and D. [place]: The National Academies Press.2. Shannon MF, Bubba NC, Geraldine MENDEZ, et al. Evaluation, treatment, and prevention of vitamin D deficiency: an Endocrine Society clinical practice guideline. JCEM. 2010; 96(7):1911-30.Performed At: [facility] [id number] Kyle L MD Ph:[phone] Spec Comments: OSTEOPENIAIndication for Test: Osteopenia/Bone Dis RiskSENT 1 ML SERUM REF TO [id number] 09:26:00 * Test Item Value Reference Range Interpretation Comme nts GLUBED (test code = GLUBED) 132 MG/DL 74-106 H BASIC METABOLIC [id number] 05:44:00* Test Item Value Reference Range Interpretation Comme nts SODIUM (test code = NA) 137 mmol/L 137-145 N POTASSIUM (test code = K) 4.2 mmol/L 3.4-5.0 N CHLORIDE (test code = CL) 110 mmol/L 98-107 H CARBON DIOXIDE (test code = CO2) 24 mmol/L 22-30 N ANION GAP (test code = GAP) 6 mmol/L 10-20 L GLUCOSE (test code = GLU) 155 mg/dL 74-106 H BLOOD UREA NITROGEN (test code = BUN) 18 mg/dL 9-20 N GLOMERULAR FILTRATION RATE (test code = GFR) 99 mL/min The Glomerular Filtration Rate is a calculated parameterbased on serum Creatinine, patient age and sex. GFR valuesless than 60 mL/min/1.73 square meters are indicative ofChronic Kidney Disease. Values less than 15 mL/min/1.73square meters indicate Kidney failure. The calculation forGFR is based on the CKD-EPI (202) calculation. This formulais race indifferent and is the recommended formula for GFRby the National Kidney Foundation for Adults.The GFR will not calculate if the sex is unknown or if thepatient's age is <18 years. CREATININE (test code = CREAT) 0.6 mg/dL 0.7-1.3 L CALCIUM (test code = CA) 8.5 mg/dL 8.4-10.2 N INDEX HEMOLYSIS (test code = HEMINDEX) 16 Index/DL 0-100 N CBC W/AUTO [id number] 05:12:00* Test Item Value Reference Range Interpretation Comme nts WHITE BLOOD CELL (test code = WBC) 2.8 x10 3/uL 5.0-12.0 L RED BLOOD CELL (test code = RBC) 3.88 x10 6/uL 4.70-6.10 L HEMOGLOBIN (test code = HGB) 11.2 g/dL 14.0-18.0 L HEMATOCRIT (test code = HCT) 35.1 % 37.0-49.0 L MEAN CELL VOLUME (test code = MCV) 91 fL 80-94 N MEAN CELL HGB (test code = MCH) 28.9 pg 27-31 N MEAN CELL HGB CONCENTRATION (test code = MCHC) 31.9 g/dL 33-37 L RED CELL DISTRIBUTION WIDTH (test code = RDW) 15.5 % 11.5-15.5 N PLATELET COUNT (test code = PLT) 57 x10 3/uL 130-400 L MEAN PLATELET VOLUME (test c ode = MPV) 10.6 fL 9.4-16.4 N NEUTROPHIL % (test code = NT%) 66.2 % 43-65 H IMMATURE GRANULOCYTE % (test code = IG%) 0.0 % 0.0-2.0 N LYMPHOCYTE % (test code = LY%) 22.3 % 20.5-45.5 N MONOCYTE % (test code = MO%) 8.3 % 5.5-11.7 N EOSINOPHIL % (test code = EO%) 2.5 % 0.9-2.9 N BASOPHIL % (test code = BA%) 0.7 % 0.2-1.0 N NUCLEATED RBC % (test code = NRBC%) 0.0 % 0-1.0 N NEUTROPHIL # (test code = NT#) 1.84 x10 3/uL 2.2-4.8 L IMMATURE GRANULOCYTE # (test code = IG#) 0.00 x10 3/uL 0-0.03 N LYMPHOCYTE # (test code = LY#) 0.62 x10 3/uL 1.3-2.9 L MONOCYTE # (test code = MO#) 0.23 x10 3/uL 0.3-0.8 L EOSINOPHIL # (test code = EO#) 0.07 x10 3/uL 0.0-0.2 N BASOPHIL # (test code = BA#) 0.02 x10 3/uL 0.0-0.1 N [id number] 20:45:00* Test Item Value Reference Range Interpretation Comme nts GLUBED (test code = GLUBED) 168 MG/DL 74-106 H [id number] 18:56:00* Test Item Value Reference Range Interpretation Comme nts GLUBED (test code = GLUBED) 228 MG/DL 74-106 H [id number] 11:23:00* Test Item Value Reference Range Interpretation Comme nts GLUBED (test code = GLUBED) 172 MG/DL 74-106 H [id number] 09:40:00* Test Item Value Reference Range Interpretation Comme nts GLUBED (test code = GLUBED) 119 MG/DL 74-106 H [id number] 09:20:00* Test Item Value Reference Range Interpretation Comme nts PHOSPHOROUS (test code = PHOS) 3.5 mg/dL 2.5-4.5 N TSH REFLEX TO [id number] 09:20:00* Test Item Value Reference Range Interpretation Comme nts TSH REFLEX TO FT4 (test code = TSHREFLEX) 2.640 MIU/L 0.465-4.68 N A positive bias may occur for patients taking BIOTINsupplements. HGBA1C - GLYCOSYLATED [id number] 07:15:00* Test Item Value Reference Range Interpretation Comme nts GLYCOSYLATED HEMOGLOBIN (HA1C) (test code = GLYHGB) 9.5 % 0-5.9 H Current anabel delines recommend a treatment goal of <7% fordiabetic patients. A1c may be overestimated in diabeticpatients exhibiting poor control and who are alsoheterozygous or homozygous for HgbS or HgbC. Totalglycohemoglobin is a better indicator of diabetic control inpatients with these hemoglobin variants. BASIC METABOLIC [id number] 06:34:00* Test Item Value Reference Range Interpretation Comme nts SODIUM (test code = NA) 134 mmol/L 137-145 L POTASSIUM (test code = K) 4.4 mmol/L 3.4-5.0 N CHLORIDE (test code = CL) 109 mmol/L 98-107 H CARBON DIOXIDE (test code = CO2) 24 mmol/L 22-30 N ANION GAP (test code = GAP) 6 mmol/L 10-20 L GLUCOSE (test code = GLU) 172 mg/dL 74-106 H BLOOD UREA NITROGEN (test code = BUN) 20 mg/dL 9-20 N GLOMERULAR FILTRATION RATE (test code = GFR) 95 mL/min The Glomerular Filtration Rate is a calculated parameterbased on serum Creatinine, patient age and sex. GFR valuesless than 60 mL/min/1.73 square meters are indicative ofChronic Kidney Disease. Values less than 15 mL/min/1.73square meters indicate Kidney failure. The calculation forGFR is based on the CKD-EPI (202) calculation. This formulais race indifferent and is the recommended formula for GFRby the National Kidney Foundation for Adults.The GFR will not calculate if the sex is unknown or if thepatient's age is <18 years. CREATININE (test code = CREAT) 0.7 mg/dL 0.7-1.3 N CALCIUM (test code = CA) 8.1 mg/dL 8.4-10.2 L INDEX HEMOLYSIS (test code = HEMINDEX) < 15 Index/DL 0-100 N CBC W/AUTO [id number] 05:07:00* Test Item Value Reference Range Interpretation Comme nts WHITE BLOOD CELL (test code = WBC) 3.4 x10 3/uL 5.0-12.0 L RED BLOOD CELL (test code = RBC) 3.86 x10 6/uL 4.70-6.10 L HEMOGLOBIN (test code = HGB) 11.2 g/dL 14.0-18.0 L HEMATOCRIT (test code = HCT) 34.7 % 37.0-49.0 L MEAN CELL VOLUME (test code = MCV) 90 fL 80-94 N MEAN CELL HGB (test code = MCH) 29.0 pg 27-31 N MEAN CELL HGB CONCENTRATION (test code = MCHC) 32.3 g/dL 33-37 L RED CELL DISTRIBUTION WIDTH (test code = RDW) 15.4 % 11.5-15.5 N PLATELET COUNT (test code = PLT) 67 x10 3/uL 130-400 L MEAN PLATELET VOLUME (test c ode = MPV) 11.5 fL 9.4-16.4 N NEUTROPHIL % (test code = NT%) 68.6 % 43-65 H IMMATURE GRANULOCYTE % (test code = IG%) 0.3 % 0.0-2.0 N LYMPHOCYTE % (test code = LY%) 19.2 % 20.5-45.5 L MONOCYTE % (test code = MO%) 9.0 % 5.5-11.7 N EOSINOPHIL % (test code = EO%) 2.6 % 0.9-2.9 N BASOPHIL % (test code = BA%) 0.3 % 0.2-1.0 N NUCLEATED RBC % (test code = NRBC%) 0.0 % 0-1.0 N NEUTROPHIL # (test code = NT#) 2.35 x10 3/uL 2.2-4.8 N IMMATURE GRANULOCYTE # (test code = IG#) 0.01 x10 3/uL 0-0.03 N LYMPHOCYTE # (test code = LY#) 0.66 x10 3/uL 1.3-2.9 L MONOCYTE # (test code = MO#) 0.31 x10 3/uL 0.3-0.8 N EOSINOPHIL # (test code = EO#) 0.09 x10 3/uL 0.0-0.2 N BASOPHIL # (test code = BA#) 0.01 x10 3/uL 0.0-0.1 N [id number] 00:54:00* Test Item Value Reference Range Interpretation Comme nts GLUBED (test code = GLUBED) 114 MG/DL 74-106 H [id number] 20:21:00* Test Item Value Reference Range Interpretation Comme nts GLUBED (test code = GLUBED) 210 MG/DL 74-106 H [id number] 17:56:00* Test Item Value Reference Range Interpretation Comme nts GLUBED (test code = GLUBED) 178 MG/DL 74-106 H [id number] 13:07:00* Test Item Value Reference Range Interpretation Comme nts GLUBED (test code = GLUBED) 229 MG/DL 74-106 H [id number] 08:55:00* Test Item Value Reference Range Interpretation Comme nts GLUBED (test code = GLUBED) 159 MG/DL 74-106 H [id number] 06:22:00* Test Item Value Reference Range Interpretation Comme nts GLUBED (test code = GLUBED) 169 MG/DL 74-106 H [id number] 23:37:00* Test Item Value Reference Range Interpretation Comme nts GLUBED (test code = GLUBED) 330 MG/DL 74-106 H - XR ELBOW 3 + V [id number] 18:38:00 [facility] 1945 Sex: M FAX: Isac Velasco MD R1 [place]: [facility] [address]: REG Name: CAMRON MALDONADO III [facility] : 1945 Age/S: 77/M [address] [facility] Unit #: [id number] Loc: [place] [address] Phys: Isac Velasco MD R1 Acct: [id number] Dis Date: Status: REG ER PHONE #: Exam Date: 09/07/2023 1106 FAX #: Reason: right elbow pain, fall EXAMS: CPT CODE: [id number] XR ELBOW 3 + V RT 76264 LOCATION: Q15 HISTORY: 77-year-old male presents with pain in the right elbow after suffering a fall. COMMENT: Frontal, oblique, and lateral radiographs of the right elbow were obtained. FINDINGS: The skeleton is intact, and normally mineralized. There is no evidence for an effusion within the elbow joint space. The surrounding soft tissues are u nremarkable. IMPRESSION: Unremarkable radiographic examination of the right elbow. at 1838 Reported and signed by: Timbo Villarreal MD CC: Selina R1 Rod BAIN Technologist: AMILCAR VIRK Trnscrd Date/Time/By: 09/07/2023 (1837) : By: [email or web address] PAGE 1 Signed Report FAX: Isac Velasco MD R1 [place]: [facility] [address]: REG Name: CAMRON MALDONADO III FSED : 1945 Age/S: 77/M [address] [facility] Unit #: [id number] Loc: [place] [address] Phys: Isac Velasco MMD R1 Acct: [id number] Dis Date: Status: REG ER PHONE #: Exam Date: 09/07/2023 1828 FAX #: Reason: right elbow pain, fall EXAMS: CPT CODE: [id number] XR ELBOW 3 + V RT 01170 (Continued) Orig PrintD/T: S: 09/07/2023 (184) PAGE 2 Signed ReportBASIC METABOLIC [id number] 18:26:00* Test Item Value Reference Range Interpretation Comme nts SODIUM (test code = NA) 136 MMOL/L 135-147 N POTASSIUM (test code = K) 4.1 MMOL/L 3.6-5.2 N CHLORIDE (test code = CL) 101 MMOL/L 98-108 N CARBON DIOXIDE (test code = CO2) 26 mmol/L 21-32 N GLUCOSE (test code = GLU) 270 mg/dL 70-110 H BLOOD UREA NITROGEN (test code = BUN) 23 MG/DL 6-21 H GLOMERULAR FILTRATION RATE (test code = GFR) 69 mL/min The Glomerular Filtration Rate is a calculated parameterbased on serum Creatinine, patient age and sex. GFR valuesless than 60 mL/min/1.73 square meters are indicative ofChronic Kidney Disease. Values less than 15 mL/min/1.73square meters indicate Kidney failure. The calculation forGFR is based on the CKD-EPI (2020) calculation. This formulais race indifferent and is the recommended formula for GFRby the National Kidney Foundation for Adults.The GFR will not calculate if the sex is unknown or if thepatient's age is <18 years. CREATININE (test code = CREAT) 1.1 mg/dL 0.6-1.3 N CALCIUM (test code = CA) 8.6 mg/dL 8.7-10.5 L PROTHROMBIN [id number] 18:21:00* Test Item Value Reference Range Interpretation Comme nts PROTHROMBIN TIME PATIENT (test code = PTP) 14.9 SECONDS 9.2-12.1 H INTERNATIONAL NORMAL RATIO (test code = INR) 1.3 The INR is to be used only for monitoring ORAL ANTICOAGULANTTHERAPY. Indication INR Value1. Prophylaxis/treatment of: Venous Thrombosis, Pulmonary Embolism 2.0 - 3.02. Prevention of systemic embolism from: Tissue heart valves 2.0 - 3.0 Acute myocardial infarction (to present systemic embolism)* 2.0 - 3.0 Valvular heart disease 2.0 - 3.0 Atrial fibrillation 2.0 - 3.03. Mechanical prosthetic valves (high risk) 2.5 - 3.5 * If oral anticoagulant therapy is elected to preventrecurrent myocardial infarction, an INR of 2.5-3.5 isrecommended, consistent with Food and Drug Administrationrecommen dations. THROMBOPLASTIN TIME [id number] 18:21:00* Test Item Value Reference Range Interpretation Comme nts THROMBOPLASTIN TIME PARTIAL (test code = PTT) 27.8 SECONDS 23.4-37.0 N Therapeutic Rang e for Heparin EFFECTIVE 10/22/12 Heparin IU/mL aPTT Seconds0.3 64.30.7 88.8 CBC W/AUTO [id number] 18:18:00* Test Item Value Reference Range Interpretation Comme nts WHITE BLOOD CELL (test code = WBC) 3.5 x10 3/uL 5.0-12.0 L RED BLOOD CELL (test code = RBC) 3.93 x10 6/uL 4.70-6.10 L HEMOGLOBIN (test code = HGB) 11.7 g/dL 14.0-18.0 L HEMATOCRIT (test code = HCT) 36.1 % 37.0-49.0 L MEAN CELL VOLUME (test code = MCV) 92 fL 80-94 N MEAN CELL HGB (test code = MCH) 29.8 pg 27-31 N MEAN CELL HGB CONCENTRATION (test code = MCHC) 32.4 g/dL 33-37 L RED CELL DISTRIBUTION WIDTH (test code = RDW) 14.8 % 11.5-15.5 N PLATELET COUNT (test code = PLT) 64 x10 3/uL 130-400 L MEAN PLATELET VOLUME (test c ode = MPV) 10.5 fL 9.4-16.4 N NEUTROPHIL % (test code = NT%) 72.2 % 43-65 H IMMATURE GRANULOCYTE % (test code = IG%) 0.3 % 0.0-2.0 N LYMPHOCYTE % (test code = LY%) 17.8 % 20.5-45.5 L MONOCYTE % (test code = MO%) 7.1 % 5.5-11.7 N EOSINOPHIL % (test code = EO%) 2.3 % 0.9-2.9 N BASOPHIL % (test code = BA%) 0.3 % 0.2-1.0 N NEUTROPHIL # (test code = NT#) 2.55 x10 3/uL 2.2-4.8 N IMMATURE GRANULOCYTE # (test code = IG#) 0.01 x10 3/uL 0-0.03 N LYMPHOCYTE # (test code = LY#) 0.63 x10 3/uL 1.3-2.9 L MONOCYTE # (test code = MO#) 0.25 x10 3/uL 0.3-0.8 L EOSINOPHIL # (test code = EO#) 0.08 x10 3/uL 0.0-0.2 N BASOPHIL # (test code = BA#) 0.01 x10 3/uL 0.0-0.1 N - CT L-SPINE W/O [id number] 16:02:00 [facility] : 1945 Sex: M [place]: [facility] [address]: PRE -- Name: CAMRON MALDONADO III [facility] : 1945 Age/S: 77/M [address] [facility] Unit: [id number] Loc: [place] [address] Phys: Ruben Marie MD Acct: [id number] Dis Date: Status: PRE PHONE #: Exam Date: 09/07/2023 1525 FAX #: Reason: FALL PAIN EXAMS: CPT CODE: [id number] CT L-SPINE W/O CONTRAST 80791 LOCATION CODE: H 31 CT THORACIC SPINE NONCONTRAST. CT LUMBAR SPINE NONCONTRAST. CT PELVIS NONCONTRAST HISTORY: Body pain. Trauma COMPARISON: CT T and L-spine dated 06/20/2023. CT abdomen and pelvis dated 05/17/2023. TECHNIQUE : Serial axial CT of the thoracic and lumbosacral and pelvis provided in bone windows with coronal and sagittal reconstruction. One or more of the following dose reduction techniques were used: Automated exposure control, adjustment of the mA or KV according to patient size, use of Iterative reconstruction technique. 3-D Reconstruction provided at pelvis. FINDINGS: Bones are diffusely demineralized. THORACIC SPINE: Twelve rib bearing thoracic vertebrae. Old inferior endplate wedge deformity at T3 (25% height loss), mild superior endplate wedge deformity at T4 have developed (10% height loss) since the prior exam, now appearing subacute. Associateddisc space narrowing with vacuum phenomenon. Vertebral body heights and alignment are otherwise preserved throughout the remainder of the lumbar spine. Old hemangioma redemonstrated at T8. Other milddisc disease at the lower T-spine levels as well. No paravertebral soft tissue thickening. No evidence of fracture or subluxation. Old healed right superior 11th and 12th rib fractures evident. Sliding-type hiatal hernia at GE junction. Exophytic right renal cysts, 3.8 cm a small rim calcifications, Bosniak 2, no follow-up. LUMBAR SPINE: Five non rib-bearing lumbar vertebrae. Vertebral body height is maintained. No acute fracture or subluxation. Moderate chronic disc space narrowing with vacuum phenomenon noted at L5-S1. Moderate diffuse disc bulges with annular calcifications seen PAGE 1 Signed Report (CONTINUED) [place]: [facility] [address]: PRE Name: JOEL PARDOCAMRON Law [facility] : 1945 Age/S: 77/M [address] [facility] Unit: [id number] Loc: [place] [address] Phys: Ruben Marie MD Acct: [id number] Date: Status: PRE ER PHONE #: Exam Date: 09/07/2023 0356 FAX #: Reason: FALL PAIN EXAMS: CPT CODE: [id number] CT L- SPINE W/O CONTRAST 34273 (Continued) at L3-L4, L4-5. Chronic. Mild disc bulge at T12-L1 as well. Sacroiliac joints are intact and symmetric, mildly narrowed bilaterally. 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 Sacrum is intact. PELVIS: Femoral head and neck are intact bilaterally. Mild narrowing at the hip joint spaces with mild spurring. No pelvic fracture noted wall. No free pelvic fluid or pelvic sidewall hematoma. Normal-sized prostate with coarse calcifications. Bladder is unremarkable. IMPRESSION: 1. Thoracic: Subacute to T3 inferior endplate fracture (25% height loss); subacute T4 superior endplate fracture (10% height loss). New compared to 06/2023 CT. No acute fracture noted otherwise. 2. Lumbar: No acute fracture or subluxation involving the lumbar spine. Mild diffuse disc bulges at the lumbar spine, multilevel. 3. Pelvis: No evidence of acute fracture or subluxation in the pelvis. 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 4. Diffuse osteopenia. t 1602 Reported and signed by: Anayeli Vazquez MD CC: Technologist: AMILCAR VIRK Trnderd Dt/Tm: 09/07/2023 (1602) [email or web address] Orig Print D/T: S: 09/07/2023 (1605 PAGE 2 Signed Report- CT PELVIS W/O CONTRAST 2023-09-07 16:02:00 [facility] : 1945 Sex: M [place]: [facility] St: PRE -- Name: CAMRON MALDONADO III FSED : 1945 Age/S: 77/M [address] [facility] Unit: [id number] Loc: [place] [address] Phys: Ruben Marie MD Acct: [id number] Dis Date: Status: PRE ER PHONE #: Exam Date: 09/07/2023 1798 FAX #: Reason: fall, pain,headache,spasm EXAMS: CPT CODE: [id number] CT PELVIS W/O CONTRAST 75078 LOCATION CODE: H 31 CT THORACIC SPINE NONCONTRAST. CT LUMBAR SPINE NONCONTRAST. CT PELVIS NONCONTRAST HISTORY: Body pain. Trauma COMPARISON: CT T and L-spine dated 06/20/2023. CT abdomen and pelvis dated 05/17/2023. TECHNIQUE : Serial axial CT of the thoracic and lumbosacral and pelvis provided in bone windows with coronal and sagittal reconstruction. One or more o f the following dose reduction techniques were used: Automated exposure control, adjustment of the mA or KV according to patient size, use of Iterative reconstruction technique. 3-D Reconstruction provided at pelvis. FINDINGS: Bones are diffusely demineralized. THORACIC SPINE: Twelve rib bearing thoracic vertebrae. Old inferior endplate wedge deformity at T3 (25% height loss), mild superior endplate wedge deformity at T4 have developed (10% height loss) since the prior exam, now appearing subacute. Associated disc space narrowing with vacuum phenomenon. Vertebral body heights and alignment are otherwise preserved throughout the remainder of the lumbar spine. Old hemangioma redemonstrated at T8. Other mild disc disease at the lower T-spine levels as well. No paravertebral soft tissue thickening. No evidence of fracture or subluxation. Old healed right superior 11th and 12th rib fracturesevident. Sliding-type hiatal hernia at GE junction. Exophytic right renal cysts, 3.8 cm a small rim calcifications, Bosniak 2, no follow-up. LUMBAR SPINE: Five non rib-bearing lumbar vertebrae. Vertebral body height is maintained. No acute fracture or subluxation. Moderate chronic disc space narrowing with vacuum phenomenon noted at L5-S1. Moderate diffuse disc bulges with annular calcifications seen PAGE 1 Signed Report (CONTINUED) [place]: [facility] [address]: PRE Name: CAMRON MALDONADO III [facility] : 1945 Age/S: 77/M [address] [facility] Unit: [id number] Loc: [place] [address] Phys: Ruben Marie MD Acct: [id number] Dis Date: Status: PRE ER PHONE #: Exam Date: 09/07/2023 5827 FAX #: Reason: fall, p ain,headache,spasm EXAMS: CPT CODE: [id number] CT PELVIS W/O CONTRAST 53362 (Continued) at L3-L4, L4-5. Chronic. Mild disc bulge at T12-L1 as well. Sacroiliac joints are intact and symmetric, mildlynarrowed bilaterally. 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 Sacrum is intact. PELVIS: Femoral head and neck are intact bilaterally. Mild narrowing at the hip joint spaces with mild spurring. No pelvicfracture noted wall. No free pelvic fluid or pelvic sidewall hematoma. Normal-sized prostate with coarse calcifications. Bladder is unremarkable. IMPRESSION: 1. Thoracic: Subacute to T3 inferior endp late fracture (25% height loss); subacute T4 superior endplate fracture (10% height loss). New compared to 06/2023 CT. No acute fracture noted otherwise. 2. Lumbar: No acute fracture or subluxation involving the lumbar spine. Mild diffuse disc bulges at the lumbar spine, multilevel. 3. Pelvis: No evidence of acute fracture or subluxation in the pelvis. 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 4. Diffuse osteopenia. at 1602 Reported and signed by: Anayeli Vazquez MD CC: Technologist: AMILCAR VIRK [facility] Dt/Tm: 09/07/2023 (1602) [email or web address] Orig Print D/T: S: 09/07/2023 (8735 PAGE 2 Signed Report- CT T-SPINE W/O [id number] 16:02:00 [facility] : 1945 Sex: M [place]: [facility] [address]: PRE -- Name: CAMRON MALDONADO III [facility] : 1945 Age/S: 77/M [address] [facility] Unit: [id number] Loc: [place] [address] Phys: Ruben Marie MD Acct: [id number] Dis Date: Status: PRE ER PHONE #: Exam Date: 09/07/2023 7488 FAX #: Reason: fall, pain,headache,spasm EXAMS: CPT CODE: [id number] CT T- SPINE W/O CONTRAST 12578 LOCATION CODE: H 31 CT THORACIC SPINE NONCONTRAST. CT LUMBAR SPINE NONCONTRAST. CT PELVIS NONCONTRAST HISTORY: Body pain. Trauma COMPARISON: CT T and L-spine date06/20/2023. CT abdomen and pelvis dated 05/17/2023. TECHNIQUE : Serial axial CT of the thoracic and lumbosacral and pelvis provided in bone windows with coronal and sagittal reconstruction. One or more of the following dose reduction techniques were used: Automated exposure control, adjustment of the mA or KV according to patient size, use of Iterative reconstruction technique. 3-D Reconstruction provided at pelvis. FINDINGS: Bones are diffusely demineralized. THORACIC SPINE: Twelve rib bearing thoracic vertebrae. Old inferior endplate wedge deformity at T3 (25% height loss), mild superior endplate wedge deformity at T4 have developed (10% height loss) since the prior exam, now appearing subacute. Associated disc space narrowing with vacuum phenomenon. Vertebral body heights and alignment are otherwise preserved throughout the remainder of the lumbar spine. Old hemangioma redemonstrated at T8. Other mild disc disease at the lower T-spine levels as well. No paravertebral soft tissue thickening. No evidence of fracture or subluxation. Old healed right superior 11th and 12th rib fracturesevident. Sliding-type hiatal hernia at GE junction. Exophytic right renal cysts, 3.8 cm a small rim calcifications, Bosniak 2, no follow-up. LUMBAR SPINE: Five non rib-bearing lumbar vertebrae. Vertebral body height is maintained. No acute fracture or subluxation. Moderate chronic disc space narrowing with vacuum phenomenon noted at L5-S1. Moderate diffuse disc bulges with annular calcificationsseen PAGE 1 Signed Report (CONTINUED) [place]: [facility] [address]: PRE Name: CAMRON MALDONADO III [facility] : 1945 Age/S: 77/M [address] [facility] Unit: [id number] Loc: [place] [address] Phys: Ruben Marie MD Acct: [id number] Dis Date: Status: PRE ER PHONE #: Exam Date: 09/07/2023 1130 FAX #: Reason: fall, pain,headache,spasm EXAMS: CPT CODE: [id number] CT T-SPINE W/O CONTRAST 76974 (Continued) at L3-L4, L4-5. Chronic. Mild disc bulge at T12-L1 as well. Sacroiliac joints are intact and symmetric, mildlynarrowed bilaterally. 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 Sacrum is intact. PELVIS: Femoral head and neck are intact bilaterally. Mild narrowing at the hip joint spaces with mild spurring. No pelvicfracture noted wall. No free pelvic fluid or pelvic sidewall hematoma. Normal-sized prostate with coarse calcifications. Bladder is unremarkable. IMPRESSION: 1. Thoracic: Subacute to T3 inferior endpl ate fracture (25% height loss); subacute T4 superior endplate fracture (10% height loss). New compared to 06/2023 CT. No acute fracture noted otherwise. 2. Lumbar: No acute fracture or subluxation involving the lumbar spine. Mild diffuse disc bulges at the lumbar spine, multilevel. 3. Pelvis: No evidence of acute fracture or subluxation in the pelvis. 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 4. Diffuse osteopenia. at 1602 Reported and signed by: Anayeli Vazquez MD CC: Technologist: AMILCAR VIRK Trnscrd Dt/Tm: 09/07/2023 (1602) [email or web address] Orig Print D/T: S: 09/07/2023 (1605 PAGE 2 Signed Report- CT C-SPINE W/O [id number] 15:50:00 [facility] CAM[facility] MAL[facility]AD[facility] : 1945 Sex: M [place]: [facility] [address]: PRE -- Name: CAMRON MALDONADO III [facility] : 1945 Age/S: 77/M [address] [facility] Unit: [id number] Loc: [place] [address] Phys: Ruben Marie MD Acct: [id number] Dis Date: Status: PREER PHONE #: Exam Date: 09/07/2023 4364 FAX #: Reason: fall, pain,headache,spasm EXAMS: CPT CODE: [id number] CT C- SPINE W/O CONT 56924 LOCATION H31 NON-CONTRAST CT BRAIN NONCONTRAST CT CERVICAL SPINEHISTORY: Pain after fall. Spasm. Headache COMPARISON: None available TECHNIQUE : Serial axial CT of the brain obtained without the use of intravenous contrast in brain and bone window settings. Axial CT of the cervical spine provided in soft tissue and bone windows with coronal and sagittal recons truction. One or more of the following dose reduction techniques were used: Automated exposure control, adjustment of the mA or KV according to patient size, use of Iterative reconstruction technique. FINDINGS: Brain: There is no evidence of acute cerebrovascular injury, mass effect or midline shift. No evidence of subarachnoid hemorrhage, intracerebral hematoma, or extraaxial fluid collections. There is mild generalized parenchymal volume loss with compensatory widening of the ventricular system. Periventricular white matter hypodensity diffusely is compatible with small vessel microangiopathy. Osseous structures are unremarkable. The orbits appear normal. The visible paranasal sinuses and mastoid air spaces are clear. C-spine: Bones appear diffusely demineralized. Alignment is normal. Vertebral body height is maintained. No acute fracture. Moderate disc space narrowing with endplate sclerosis noted at C5-C6 level. Mild disc space narrowing at C6-C7. Disc space height preserved at other upper C- spine levels. Hypertrophic changes are seen around the dens. No prevertebral soft tissuethickening. Thyroid is mildly heterogeneous, nonenlarged. IMPRESSION: PAGE 1 Signed Report (CONTINUED) [place]: [facility] St: PRE -- Name: JOEL IIICAMRON FSED : 1945 Age/S: 77/M [address] [facility] Unit: [id number] Loc: [place] [address] Phys: Ruben Marie MD Acct: [id number] Dis Date: Status:PRE ER PHONE #: Exam Date: 09/07/2023 7957 FAX #: Reason: fall, pain,headache,spasm EXAMS: CPT CODE: [id number] CT C- SPINE W/O CONT 93582 (Continued) 1. No evidence of acute intracranial process. Mild generalized atrophy. 2. No evidence of acute fracture or subluxation. Mild- moderate multilevel cervical spondylosis. 3. Diffuse osteopenia. at 1550 Reported and signed by: Anayeli Vazquez MD CC: Technologist: AMILCAR VIRK Trnscrd Dt/Tm: 09/07/2023 (0820) [email or web address] Orig Print D/T: S: 09/07/2023 (4667 PAGE 2 Signed Report- CT HEAD/BRAIN W/O [id number] 15:50:00 [facility] Thanh : 1945 Sex: M [place]: [facility] [address]: PRE -- Name: CAMRON MALDONADO III [facility] : 1945 Age/S: 77/M [address] [facility] Unit: [id number] Loc: [place] [address] Phys: Ruben Marie MD Acct: [id number] Dis Date: Status: PREER PHONE #: Exam Date: 09/07/2023 0650 FAX #: Reason: fall, pain,headache,spasm EXAMS: CPT CODE: [id number] CT HEAD/BRAIN W/O CONT 73597 LOCATION H31 NON-CONTRAST CT BRAIN NONCONTRAST CT CERVICAL SPINE HISTORY: Pain after fall. Spasm. Headache COMPARISON: None available TECHNIQUE : Serial axial CT of the brain obtained without the use of intravenous contrast in brain and bone window settings. Axial CT of the cervical spine provided in soft tissue and bone windows with coronal and sagittal recons truction. One or more of the following dose reduction techniques were used: Automated exposure control, adjustment of the mA or KV according to patient size, use of Iterative reconstruction technique. FINDINGS: Brain: There is no evidence of acute cerebrovascular injury, mass effect or midline shift. No evidence of subarachnoid hemorrhage, intracerebral hematoma, or extraaxial fluid collections. There is mild generalized parenchymal volume loss with compensatory widening of the ventricular system. Periventricular white matter hypodensity diffusely is compatible with small vessel microangiopathy. Osseous structures are unremarkable. The orbits appear normal. The visible paranasal sinuses and mastoid air spaces are clear. C-spine: Bones appear diffusely demineralized. Alignment is normal. Vertebral body height is maintained. No acute fracture. Moderate disc space narrowing with endplate sclerosis noted at C5-C6 level. Mild disc space narrowing at C6-C7. Disc space height preserved at other upper C-spine levels. Hypertrophic changes are seen around the dens. No prevertebral soft tissue thickening. Thyroid is mildly heterogeneous, nonenlarged. IMPRESSION: PAGE 1 Signed Report (CONTINUED) [place]: [facility] [address]: PRE ---- Name: CAMRON MALDONADO III [facility] : 1945 Age/S: 77/M [address] [facility] Unit:[id number] Loc: [place] [address] Phys: Ruben Marie MD Acct: [id number] Dis Date: Status: PRE ER PHONE #: Exam Date: 09/07/2023 5885 FAX #: Reason: fall, pain,headache,spasm EXAMS: CPT CODE: [id number] CT HEAD/BRAIN W/O CONT 18155 (Continued) 1. No evidence of acute intracranial process. Mild generalized atrophy. 2. No evidence of acute fracture or subluxation. Mild-moderate multilevel cervical spondylosis. 3. Diffuse osteopenia. at 1550 Reported and signed by: Anayeli Vazquez MD CC: Technologist: AMILCAR VIRK Trnscrd Dt/Tm: 09/07/2023 (7420) [email or web address] Orig Print D/T: S: 09/07/2023 (6913 PAGE 2 Signed Report- XR WRIST 3 + V [id number] 16:12:00[facility] : 1945 Sex: M FAX: Na Stoner MD [place]: St: REG Name: CAMRON MALDONADO III [place] : 1945 Age/S: 77/M [address] Unit #: [id number] Loc: [place] [address] Phys: Na Stoner MD Acct: [id number] Dis Date: Status: REG ER PHONE #: [phone] Exam Date: 06/20/2023 1556 FAX #: [phone] Reason: FOOSH 4 days ago, swelling, pain, mild deformit EXAMS: CPT CODE: [id number] XR WRIST 3 + [place] [address] EXAM: Left forearm 2 views AP and lateral LOCATION: H 12 HISTORY: FOOSH 4 days ago, swelling, pain, milddeformity FINDINGS: No bone or joint abnormality is seen. The bony cortices are intact. The joint spaces are well preserved. The soft tissues are normal. IMPRESSION: Unremarkable exam. EXAM: Left wrist 3 views AP, lateral and oblique LOCATION: H 12 HISTORY: FOOSH 4 days ago, swelling, pain, mild deformity FINDINGS: No bone or joint abnormality is seen. The bony cortices are intact. The joint spaces are well preserved. The soft tissues are normal. IMPRESSION: Unremarkable exam. at 1412 Reported and signed by: Jay Alvarenga MD CC: Na Stoner MD Technologist: Js Barker Trnscrd Date/Time/By: 06/20/2023 (0322) : By: Rubén PAGE 1 Signed Report FAX: Na Stoner MD [address]: St: REG Name: CAMRON MALDONADO III [facility] :1945 Age/S: 77/M [address] Unit #: [id number] Loc: [place] [address] Phys: Na Stoner MD Acct: [id number] Dis Date: Status: REG ER PHONE #: [phone] Exam Date: 06/20/20231555 FAX #: [phone] Reason: FOOSH 4 days ago, swelling, pain, mild deformit EXAMS: CPT CODE: [id number] XR WRIST 3 + V LT [address]32 (Continued) Orig Print D/T: S: 06/20/2023 (1616) PAGE 2 Signed Report- XR FOREARM 2 VIEWS [id number] 16:12:00[facility] : 1945 Sex: M FAX: Na Stoner MD [place]: St: REG Name: [facility]DONAD[facility] [place] [facility] 1945 Age/S: 77/M [address] Unit #: [id number] Loc: [place] [address] Phys: Na Stoner MD R3 Acct: [id number] Dis Date: Status: REG ER PHONE #: [phone] Exam Date: 06/20/2023 1556 FAX #: [phone] Reason: FOOSH4 days ago, swelling, pain, mild deformit EXAMS: CPT CODE: [id number] XR FORE[place] [address] [place] [address] EXAM: Left forearm 2 views AP and lateral LOCATION: H 12 HISTORY: FOOSH 4 days ago, swelling, pain, mild deformity FINDINGS: No bone or joint abnormality is seen. The bony cortices are intact. The jointspaces are well preserved. The soft tissues are normal. IMPRESSION: Unremarkable exam. EXAM: Left wrist 3 views AP, lateral and oblique LOCATION: H 12 HISTORY: FOOSH 4 days ago, swelling, pain, mild deformity FINDINGS: No bone or joint abnormality is seen. The bony cortices are intact. The joint spaces are well preserved. The soft tissues are normal. IMPRESSION: Unremarkable exam. at 1612 Reported and signed by: Jay Alvarenga MD CC: Na Stoner MD Technologist: Js Barker Trnscrd Date/Time/By: 06/20/2023 (1612): By: Rubén PAGE 1 Signed Report FAX: Na Stoner MD R3 [place]: St: REG Name: CAMRON MALDONADO III [facility] : 1945 Age/S: 77/M [address] Unit #: [id number] Loc: [place] [address] Phys: Na Stoner MD R3 Acct: [id number] Dis Date: Status: REG ER PHONE #: [phone] Exam Date: 06/20/2023 1556 FAX #: [phone] Reason: FOOSH 4 days ago, swelling, pain, mild deformit EXAMS: CPT CODE:[id number] XR [place] [address] [place] [address] (Continued) Orig Print D/T: S: 06/20/2023 (1616) PAGE 2 Signed Report- CT L-SPINE W/O [id number] 15:44:00[facility] : 1945 Sex: M FAX: Na Stoner MD R3 [place]: St: REG Name: CAMRON MALDONADO III [facility] : 1945 Age/S: 77/M [address] Unit: [id number] Loc: [place] [address] Phys: Na Stoner MD R3 Acct: [id number] Dis Date: Status: REG ER PHONE #: [phone] Exam Date: 06/20/2023 1510 FAX #: [phone] Reason: FOOSH 4 days ago, midline TTP EXAMS: CPT CODE: [id number] CT L-SPINE W/O CONTRAST 7[address]85 CT thoracic spine: Indication: Fall pain TECHNIQUE: Axial images of the thoracic spine from R4bltcyhn T12 were obtained followed by sagittal and coronal reconstructions. Unless otherwise specified, incidental findings donot require dedicated imaging follow-up. LOCATION: C3 COMPARISON: Comparison made with prior study 05/17/2023 CT Dose: mGy-centimeters; One or more of the following dose reduction techniques were used:Automated exposure control, adjustment of the mA and/or kV according to patient size, and/or utilization of iterative reconstruction technique. FINDINGS: Vertebral body heights, alignment, and disc spaces are well-maintained. There is no evidence of acute fracture or subluxation. Mild multilevel degenerative changes are present. No significant central canal compromise is identified. Paravertebralsoft tissues are unremarkable. IMPRESSION: 1. No acute abnormality within the thoracic spine. CT lumbar spine: Indication: Fall pain TECHNIQUE: Axial images of the lumbar spine from T10 through thesacrum were obtained followed by sagittal and coronal reconstructions. Unless otherwise specified, incidental findings do not require PAGE 1 Signed Report (CONTINUED) FAX: Na Stoner MD R3 [place]: St: REG -- Name: CAMRON MALDONADO III [facility] : 1945 Age/S: 77/M [address] Unit: [id number] Loc: [place] [address] Phys: Na Stoner MD R3 Acct: [id number] Dis Date: Status: REG ER PHONE #: [phone] Exam Date: 06/20/2023 1510 FAX #: [phone] Reason: FOOSH 4 days ago, midline TTP EXAMS:CPT CODE: [id number] CT L-SPINE W/O CONTRAST 44451 (Continued) dedicated imaging follow-up. LOCATION: C3 COMPARISON: Comparison made with prior study 05/17/2023 CT Dose: mGy-centimeters; One or more of the following dose reduction techniques were used: Automated exposure control, adjustment of the mA and/or kV according to patient size, and/or utilization of iterative reconstruction technique. FINDINGS: Five lumbar type vertebrae are identified. Vertebral body heights, alignment, and disc spaces are well-maintained. There is no evidence of acute fracture or subluxation. Mild multilevel degenerative changes are present. No significant central canal compromise is identified. Paravertebral soft t issues are unremarkable. IMPRESSION: 1. No acute abnormality within the lumbar spine. at 1544 Reported and signed by: Antonio Edge MD CC: Na Stoner MD Technologist: SHELL RODRÍGUEZ; LENIN FUNES Trnscrd Dt/Tm: 06/20/2023 (1544) [email or web address] Orig Print D/T: S: 06/20/2023 (2007 PAGE 2 Signed Report- CT T-SPINE W/O CONTRAST 2023-06-20 15:44:00 [facility] : 1945 Sex: M FAX: Na Stoner MD R3 [place]: St: REG Name: CAMRON MALDONADO III [facility] : 1945 Age/S: 77/M [address] Unit: [id number] Loc: [place] [address] Phys: Na Stoner MD R3 Acct: [id number] Dis Date:Status: REG ER PHONE #: [phone] Exam Date: 06/20/2023 1510 FAX #: [phone] Reason: FOOSH 4days ago, midline TTP EXAMS: CPT CODE: [id number] CT T-SPINE W/O CONTRAST 04604 CT thoracic spine: Indication: Fall pain TECHNIQUE: Axial images of the thoracic spine from C7uhceddt T12 were obtainedfollowed by sagittal and coronal reconstructions. Unless otherwise specified, incidental findings do not require dedicated imaging follow-up. LOCATION: C3 COMPARISON: Comparison made with prior study 05/17/2023 CT Dose: mGy-centimeters; One or more of the following dose reduction techniques were used: Automated exposure control, adjustment of the mA and/or kV according to patient size, and/or utilization of iterative reconstruction technique. FINDINGS: Vertebral body heights, alignment, and discspaces are well- maintained. There is no evidence of acute fracture or subluxation. Mild multilevel degenerative changes are present. No significant central canal compromise is identified. Paravertebral soft tissues are unremarkable. IMPRESSION: 1. No acute abnormality within the thoracic spine. CTlumbar spine: Indication: Fall pain TECHNIQUE: Axial images of the lumbar spine from T10 through the sacrum were obtained followed by sagittal and coronal reconstructions. Unless otherwise specified, incidental findings do not require PAGE 1 Signed Report (CONTINUED) FAX: Na Stoner MD R3 [place]: St: REG -- Name: CAMRON MALDONADO III : 1945 Age/S: 77/M [address] Unit: [id number] Loc: [place] [address] Phys: Na Stoner MD R3 Acct: [id number] Dis Date: Status: REG ER PHONE #: [phone] Exam Date: 06/20/2023 1510 FAX #: [phone] Reason: FOOSH 4 days ago, midline TTP EXAMS: CPT CODE: [id number] CT T-SPINE W/O CONTRAST 60614 (Continued) dedicated imaging follow-up. LOCATION: C3 COMPARISON: Comparison made with prior study 05/17/2023 CT Dose: mGy-centimeters; One or more of the following dose reduction techniques were used: Automated exposure control, adjustment of the mA and/or kV according to patient size, and/or utilization of iterative reconstruction technique. FIND INGS: Five lumbar type vertebrae are identified. Vertebral body heights, alignment, and disc spacesare well-maintained. There is no evidence of acute fracture or subluxation. Mild multilevel degenerative changes are present. No significant central canal compromise is identified. Paravertebral softtissues are unremarkable. IMPRESSION: 1. No acute abnormality within the lumbar spine. at 1544 Reported and signed by: Antonio Edge MD CC: Na Stoner MD Technologist: SHELL RODRÍGUEZ; LENIN FUNES Trnscrd Dt/Tm: 06/20/2023 (1544) [email or web address] Orig Print D/T: S: 06/20/2023 (1547 PAGE 2 Signed ReportHEPATITIS C BY [id number] 22:07:00* Test Item Value Reference Range Interpretation Comme nts HEPATITIS C RNA BY PCR (test code = HCVRNAPCR) HCV Not Detected IU/mL See_Comment The quantitative range of this assay is 15 IU/mL to 100 million IU/mL. [Automated message] The system which generated this result transmitted reference range: (). The reference range was not used to interpret this result as normal/abnormal. ACUTE HEPATITIS [id number] 21:07:00 * Test Item Value Reference Range Interpretation Comme nts HEP A AB TOTAL ONLY (test code = HAVAB) No Result NEGATIVE ~~~~~~~~~~~~ ~~~~~~~~~~~~~ ~~~~~~~~~~~~~~~~~~~~~~~~~ ~~~~~~~~~~THIS TEST DETECTS TOTAL ANTIBODIES TO HEPATITIS A, AND DOESNOT DIFFERENTIATE BETWEEN IGG AND IGM.~~~~~~~~~~~~~~~~~~~~~ ~~~~~~~~~~~~~~~~~~~~~~~~~ ~~~~~~~~~~~~~~ A POSITIVE BIAS MAY OCCUR IN PATIENTS TAKING BIOTIN SUPPLEMENTS~~~~~~~~~~~~~~ ~~~~~~~~~~~~~~~~~~~~~~~~~ ~~~~~~~~~~~~~~~~~~~~~ HEP A AB IGM QUAL (test code = HAVMAB) NEGATIVE NEGATIVE A positive bias may occur for patients taking BIOTINsupplements. AG HEPATITIS B SURFACE (test code = HBSAG) NEGATIVE NEGATIVE HEP B CORE AB IGM QL (test code = HBCMAB) NEGATIVE NEGATIVE AB HEPATITIS C (test code = HCVAB) REACTIVE NEGATIVE A Critical Tamanna ue reported toFirst Name: Last Name: [id number] READ BACK AND VERIFIEDby [id number], on 06/11/23, @ 0757. A COPY OF THIS RESULT MUST BE SENT TO INFECTION CONTROL.~~~~~~~~~~~~~~~~~ ~~~~~~~~~~~~~~~~~~~~~~~~~ ~~~~~~~~~~~~~~~~~~Anti-HC V IgG detected. Patient is presumed to be infectedwith HCV, state or associated disease not determined. Follow[facility] recommendations for supplemental testing.* HCV RNA PCRQualitative is suggested to be ordered to obtain strongerevidence of the presence of anti-HCV.* CDC. Testing for HCV Infection: An Update of Guidance forClinicians and Laboratorians. MMWR / August / Vol.62~~~~~~~~~~~~~~~~~~~ ~~~~~~~~~~~~~~~~~~~~~~~~~ ~~~~~~~~~~~~~~~~ HEPATITIS C RNA BY [id number] 21:07:00 * Test Item Value Reference Range Interpretation Comme nts HEPATITIS C RNA BY PCR (test code = HCVRNAPCR) HCV Not Detected IU/mL See_Comment The quantitative range of this assay is 15 IU/mL to 100 million IU/mL. [Automated message] The system which generated this result transmitted reference range: (). The reference range was not used to interpret this result as normal/abnormal. [id number] 11:32:00* Test Item Value Reference Range Interpretation Comme nts GLUBED (test code = GLUBED) 317 MG/DL 74-106 H COMPREHENSIVE METABOLIC [id number] 06:42:00* Test Item Value Reference Range Interpretation Comme nts SODIUM (test code = NA) 134 mmol/L 137-145 L POTASSIUM (test code = K) 4.6 mmol/L 3.4-5.0 N CHLORIDE (test code = CL) 101 mmol/L 98-107 N CARBON DIOXIDE (test code = CO2) 31 mmol/L 22-30 H ANION GAP (test code = GAP) 7 mmol/L 10-20 L GLUCOSE (test code = GLU) 143 mg/dL 74-106 H BLOOD UREA NITROGEN (test code = BUN) 24 mg/dL 9-20 H GLOMERULAR FILTRATION RATE (test code = GFR) 95 mL/min The Glomerular Filtration Rate is a calculated parameterbased on serum Creatinine, patient age and sex. GFR valuesless than 60 mL/min/1.73 square meters are indicative ofChronic Kidney Disease. Values less than 15 mL/min/1.73square meters indicate Kidney failure. The calculation forGFR is based on the CKD-EPI (202) calculation. This formulais race indifferent and is the recommended formula for GFRby the National Kidney Foundation for Adults.The GFR will not calculate if the sex is unknown or if thepatient's age is <18 years. CREATININE (test code = CREAT) 0.7 mg/dL 0.7-1.3 N TOTAL PROTEIN (test code = PROT) 6.8 g/dL 6.3-8.2 N "A positive bias may occur for patients taking Eltrombopag(a bone marrow stimulant used to treat thrombocytopenia andaplastic anemia)." ALBUMIN (test code = ALB) 3.7 g/dL 3.5-5.0 N CALCIUM (test code = CA) 8.9 mg/dL 8.4-10.2 N BILIRUBIN TOTAL (test code = BILT) 0.5 mg/dL 0.2-1.3 N "A positive b ias may occur for patients taking Eltrombopag(a bone marrow stimulant used to treat thrombocytopenia andaplastic anemia)." BILIRUBIN CONJUGATED (test code = BILCON) 0 mg/dL 0-0.3 N "A positive bias may occur for patients taking Eltrombopag(a bone marrow stimulant used to treat thrombocytopenia andaplastic anemia)." CONJUGATE D BILIRUBIN IS THE REPLACEMENT ASSAY FOR DIRECTBILIRUBIN. BILIRUBIN UNCONJUGATED (test code = BILUNC) 0.4 mg/dL 0-1.1 N SGOT/AST (test code = AST) 26 U/L 15-46 N SGPT/ALT (test code = ALT) 26 U/L 0-49 N ALKALINE PHOSPHATASE (test code = ALKP) 69 U/L 38-126 N INDEX HEMOLYSIS (test code = HEMINDEX) 19 Index/DL 0-100 N [id number] 06:42:00* Test Item Value Reference Range Interpretation Comme nts MAGNESIUM (test code = MAG) 1.9 mg/dL 1.6-2.3 N CBC W/AUTO [id number] 06:04:00* Test Item Value Reference Range Interpretation Comme nts WHITE BLOOD CELL (test code = WBC) 3.1 x10 3/uL 5.0-12.0 L RED BLOOD CELL (test code = RBC) 4.47 x10 6/uL 4.70-6.10 L HEMOGLOBIN (test code = HGB) 11.9 g/dL 14.0-18.0 L HEMATOCRIT (test code = HCT) 37.6 % 37.0-49.0 N MEAN CELL VOLUME (test code = MCV) 84 fL 80-94 N MEAN CELL HGB (test code = MCH) 26.6 pg 27-31 L MEAN CELL HGB CONCENTRATION (test code = MCHC) 31.6 g/dL 33-37 L RED CELL DISTRIBUTION WIDTH (test code = RDW) 25.7 % 11.5-15.5 H PLATELET COUNT (test code = PLT) 73 x10 3/uL 130-400 L MEAN PLATELET VOLUME (test c ode = MPV) 9.8 fL 9.4-16.4 N NEUTROPHIL % (test code = NT%) 59.2 % 43-65 N IMMATURE GRANULOCYTE % (test code = IG%) 0.3 % 0.0-2.0 N LYMPHOCYTE % (test code = LY%) 28.1 % 20.5-45.5 N MONOCYTE % (test code = MO%) 10.1 % 5.5-11.7 N EOSINOPHIL % (test code = EO%) 1.6 % 0.9-2.9 N BASOPHIL % (test code = BA%) 0.7 % 0.2-1.0 N NUCLEATED RBC % (test code = NRBC%) 0.0 % 0-1.0 N NEUTROPHIL # (test code = NT#) 1.81 x10 3/uL 2.2-4.8 L IMMATURE GRANULOCYTE # (test code = IG#) 0.01 x10 3/uL 0-0.03 N LYMPHOCYTE # (test code = LY#) 0.86 x10 3/uL 1.3-2.9 L MONOCYTE # (test code = MO#) 0.31 x10 3/uL 0.3-0.8 N EOSINOPHIL # (test code = EO#) 0.05 x10 3/uL 0.0-0.2 N BASOPHIL # (test code = BA#) 0.02 x10 3/uL 0.0-0.1 N CBC W/AUTO [id number] 06:42:00* Test Item Value Reference Range Interpretation Comme nts WHITE BLOOD CELL (test code = WBC) 4.4 x10 3/uL 5.0-12.0 L RED BLOOD CELL (test code = RBC) 4.58 x10 6/uL 4.70-6.10 L HEMOGLOBIN (test code = HGB) 12.2 g/dL 14.0-18.0 L HEMATOCRIT (test code = HCT) 38.7 % 37.0-49.0 N MEAN CELL VOLUME (test code = MCV) 85 fL 80-94 N MEAN CELL HGB (test code = MCH) 26.6 pg 27-31 L MEAN CELL HGB CONCENTRATION (test code = MCHC) 31.5 g/dL 33-37 L RED CELL DISTRIBUTION WIDTH (test code = RDW) 25.5 % 11.5-15.5 H PLATELET COUNT (test code = PLT) 97 x10 3/uL 130-400 L NEUTROPHIL % (test code = NT%) 60.1 % 43-65 N IMMATURE GRANULOCYTE % (test code = IG%) 0.0 % 0.0-2.0 N LYMPHOCYTE % (test code = LY%) 28.9 % 20.5-45.5 N MONOCYTE % (test code = MO%) 9.2 % 5.5-11.7 N EOSINOPHIL % (test code = EO%) 1.1 % 0.9-2.9 N BASOPHIL % (test code = BA%) 0.7 % 0.2-1.0 N NUCLEATED RBC % (test code = NRBC%) 0.0 % 0-1.0 N NEUTROPHIL # (test code = NT#) 2.62 x10 3/uL 2.2-4.8 N IMMATURE GRANULOCYTE # (test code = IG#) 0.00 x10 3/uL 0-0.03 N LYMPHOCYTE # (test code = LY#) 1.26 x10 3/uL 1.3-2.9 L MONOCYTE # (test code = MO#) 0.40 x10 3/uL 0.3-0.8 N EOSINOPHIL # (test code = EO#) 0.05 x10 3/uL 0.0-0.2 N BASOPHIL # (test code = BA#) 0.03 x10 3/uL 0.0-0.1 N PLATELET ESTIMATE (test code = PLTEST) DECREASED ADEQUATE PLATELET MORPHOLOGY (test code = PLTMORPH) LARGE PLATELETS SEEN NORMAL DIFFERENTIAL [id number] 06:42:00* Test Item Value Reference Range Interpretation Comme nts POLYCHROMASIA (test code = POLC) 1+ NONE SEEN A POIKILOCYTOSIS (test code = POIK) 2+ NONE SEEN A ANISOCYTOSIS (test code = ANISO) 1+ NONE SEEN A MICROCYTOSIS (test code = MICR) 1+ NONE SEEN A ECHINOCYTES (test code = ECH) 1+ NONE SEEN A ACANTHOCYTES (test code = ACAN) 1+ NONE SEEN A OVALOCYTES (test code = OVAL) 1+ NONE SEEN A SCHISTOCYTES (test code = RAMON) 1+ NONE SEEN A HGBA1C - GLYCOSYLATED [id number] 05:47:00* Test Item Value Reference Range Interpretation Comme nts GLYCOSYLATED HEMOGLOBIN (HA1C) (test code = GLYHGB) 9.4 % 0-5.9 H Current anabel delines recommend a treatment goal of <7% fordiabetic patients. A1c may be overestimated in diabeticpatients exhibiting poor control and who are alsoheterozygous or homozygous for HgbS or HgbC. Totalglycohemoglobin is a better indicator of diabetic control inpatients with these hemoglobin variants. BASIC METABOLIC [id number] 05:41:00* Test Item Value Reference Range Interpretation Comme nts SODIUM (test code = NA) 135 mmol/L 137-145 L POTASSIUM (test code = K) 4.7 mmol/L 3.4-5.0 N CHLORIDE (test code = CL) 101 mmol/L 98-107 N CARBON DIOXIDE (test code = CO2) 28 mmol/L 22-30 N ANION GAP (test code = GAP) 10 mmol/L 10-20 N GLUCOSE (test code = GLU) 198 mg/dL 74-106 H BLOOD UREA NITROGEN (test code = BUN) 23 mg/dL 9-20 H GLOMERULAR FILTRATION RATE (test code = GFR) 88 mL/min The Glomerular Filtration Rate is a calculated parameterbased on serum Creatinine, patient age and sex. GFR valuesless than 60 mL/min/1.73 square meters are indicative ofChronic Kidney Disease. Values less than 15 mL/min/1.73square meters indicate Kidney failure. The calculation forGFR is based on the CKD-EPI (2020) calculation. This formulais race indifferent and is the recommended formula for GFRby the National Kidney Foundation for Adults.The GFR will not calculate if the sex is unknown or if thepatient's age is <18 years. CREATININE (test code = CREAT) 0.9 mg/dL 0.7-1.3 N CALCIUM (test code = CA) 9.0 mg/dL 8.4-10.2 N INDEX HEMOLYSIS (test code = HEMINDEX) 19 Index/DL 0-100 N [id number] 05:41:00* Test Item Value Reference Range Interpretation Comme nts MAGNESIUM (test code = MAG) 1.9 mg/dL 1.6-2.3 N CARDIAC ENZYMES [id number] 05:41:00* Test Item Value Reference Range Interpretation Comme nts TROPONIN-I (test code = TROPI) < 0.012 ng/mL 0.012-0.033 L Please be advised of the updated reference ranges for the new Chemistry instrumentation. VITROS TROPONIN I CRITERIANORMAL PATIENT W/O CIRCULATING TNI: 0.012-0.033 ng/mLAMI DIAGNOSTIC CUTOFF: >/= 0.120 ng/mL~~~~~~~~~~~~~~~~~~~~~~ ~~~~~~~~~~~~~~~~~~~~~~~~~~~ ~~~~~~~~~~The use of serial sampling and testing protocol is arecommended practice.An elevated troponin level alone is often not sufficient fordiagnosis of myocardial infarction. Troponin results obtained by different assays may vary.Evaluation of the extent of myocardial damage based onincrease of troponin would be valid only if similarmethodology is used.~~~~~~~~~~~~~~~~~~~~~~ ~~~~~~~~~~~~~~~~~~~~~~~~~~~ ~~~~~~~~~~ A POSITIVE BIAS MAY OCCUR FOR PATIENTS TAKING BIOTIN SUPPLEMENTS~~~~~~~~~~~~~~~~ ~~~~~~~~~~~~~~~~~~~~~~~~~~~ ~~~~~~~~~~~~~~~~ COVID 19 INHOUSE [id number] 05:33:00* Test Item Value Reference Range Interpretation Comme nts COVID 19 INHOUSE AG (test co de = [id number]) NEGATIVE Negative CARDIAC ENZYMES [id number] 21:28:00* Test Item Value Reference Range Interpretation Comme nts TROPONIN-I (test code = TROPI) < 0.012 ng/mL 0.012-0.033 L Please be advised of the updated reference ranges for the new Chemistry instrumentation. VITROS TROPONIN I CRITERIANORMAL PATIENT W/O CIRCULATING TNI: 0.012-0.033 ng/mLAMI DIAGNOSTIC CUTOFF: >/= 0.120 ng/mL~~~~~~~~~~~~~~~~~~~~~~ ~~~~~~~~~~~~~~~~~~~~~~~~~~~ ~~~~~~~~~~The use of serial sampling and testing protocol is arecommended practice.An elevated troponin level alone is often not sufficient fordiagnosis of myocardial infarction. Troponin results obtained by different assays may vary.Evaluation of the extent of myocardial damage based onincrease of troponin would be valid only if similarmethodology is used.~~~~~~~~~~~~~~~~~~~~~~ ~~~~~~~~~~~~~~~~~~~~~~~~~~~ ~~~~~~~~~~ A POSITIVE BIAS MAY OCCUR FOR PATIENTS TAKING BIOTIN SUPPLEMENTS~~~~~~~~~~~~~~~~ ~~~~~~~~~~~~~~~~~~~~~~~~~~~ ~~~~~~~~~~~~~~~~ - CT ANGIO [id number] 17:34:00 [facility] : 1945 Sex: M FAX: Trinity Trinidad MD [place]: St: REG FAX: Maryjo Noriega MD R3 Name: JOEL PARDOCAMRON A [facility] : 1945 Age/S: 77/M [address] Unit: [id number] Loc: [place] [address] Phys: Maryjo Noriega MD R3 Acct: [id number] Dis Date: Status: REG ER PHONE #: [phone] Exam Date: 06/10/20231651 FAX#: [phone] Reason: chest pain radiating to back EXAMS: CPT CODE: [id number] CT ANGIO CHEST 20493 EXAMINATION: - CT ABD PELVIS W/CONT, - CT ANGIO CHEST INDICATION: Chest pain, epigastric pain COMPARISON: None available at time of dictation LOCATION: [facility] TECHNIQUE: Axial CTA chest, as well as CT abdomen and pelvis were performed with IV contrast. 3-D vascular MIPS were created for the CTA chest. Sagittal and coronal reformatted images were also created for both exams. This exam was performed according to our departmental dose optimization program, which includes automated exposure control, adjustment of the mA and/or kV according to patient size, and/or use of iterative reconstruction technique. Unless otherwise specified, incidental findings do not require dedicated imaging follow-up. FINDINGS: CHEST: Possible trace interstitial pulmonary edema with otherwise clear lungs. No pleural effusion or pneumothorax. Patent central airways. Mild-moderate cardiomegaly. Heavily calcified coronary arteries. Aortic valve calcifications. Normal caliber thoracic aorta. Suboptimal contrast bolus timing to evaluate for aortic dissection, no dissection seen. Normal caliber main pulmonary artery without evidence of pulmonary embolism. No enlarged thoracic adenopathy. 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 No acute appearing osseous abnormality. ABDOMEN AND PELVIS: Cirrhotic liver morphology. No evidence of suspicious liver lesion. Mild-moderate splenomegaly. Moderately severe gastroesophageal varices PAGE 1 Signed Report (CONTINUED) FA X: Trinity Trinidad MD [place]: St: REG FAX: Maryjo Noriega MD R3 Name: JOEL CAMRON PARDO [facility] : 1945 Age/S: 77/M [address] Unit: [id number] Loc: [place] [address] Phys: Maryjo Noriega MD R3 Acct: [id number] Dis Date: Status: REG ER PHONE #: [phone] Exam Date: 06/10/20231651 FAX #: [phone] Reason: chest pain radiating to back EXAMS: CPT CODE: [id number] CT ANGIO CHEST [address]8921 (Continued) and mild umbilical varices. Unremarkable gallbladder, pancreas, and adrenal glands. Kidneys are normal in size without suspicious lesion, nephrolithiasis, or hydronephrosis. Unremarkableurinary bladder. Prostate gland is normal in size. Sigmoid anastomosis without adjacent fluid collection. Mild colonic diverticulosis without evidence of acute diverticulitis. Moderate amount of stool throughout colon. Mild gastric wall thickening. No evidence of intestinal obstruction, acute appendicitis, ascites, pneumoperitoneum, or fluid collection. No enlarged abdominal or pelvic lymphadenopathy. Normal caliber abdominal aorta. No acute or aggressive appearing osseous abnormality identified. IMPRESSION: Trace interstitial pulmonary edema. Cirrhosis with splenomegaly and varices. Gastriti s. at 1734 Reported and signed by: Atul Rider MD PAGE 2 Signed Report (CONTINUED) FAX: Trinity Trinidad MD [place]: St: REG FAX: Maryjo Noriega MD R3 Name: CAMRON MALDONADO III [facility] : 1945 Age/S: 77/M [address] Unit: [id number] Loc: [place] [address] Phys: Maryjo Noriega MD R3 Acct: [id number] Dis Date: Status: REG ER PHONE #: [phone] Exam Date: 06/10/2023 165 FAX #: [phone] Reason: chest pain radiating to back EXAMS: CPT CODE: [id number] CT ANGIO CHEST 84098 (Continued) CC: Trinity Trinidad MD; Maryjo Noriega MD Technologist: Sayra Alegre; MARCELA PERALTA; Franklin Avalos Trnscrd Dt/Tm: 06/10/2023 (173) [email or web address] Orig Print D/T: S: 06/10/2023 (1738 PAGE 3 Signed Report- CT ABD PELVIS [id number] 17:34:00 [facility] 1945 Sex: M FAX: Trinity Trinidad MD [place]: St: REG FAX: Maryjo Noriega MD R3 Name: CAMRON MALDONADO III [facility] : 1945 Age/S: 77/M [address] Unit: [id number] Loc: [place] [address] Phys: Maryjo Noriega MD R3 Acct: [id number] Dis Date: Status: REG ER PHONE #: [phone] Exam Date: 06/10/20231651 FAX #: [phone] Reason: epigastric pain EXAMS: CPT CODE: [id number] CT ABD PELVIS W/CONT 85386 EXAMINATION: - CT ABD PELVIS W/CONT, - CT ANGIO CHEST INDICATION: Chest pain, epigastric pain COMPARISON: None available at time of dictation LOCATION: [facility] TECHNIQUE: Axial CTA chest, as well as CT abdomen and pelvis were performed with IV contrast. 3-D vascular MIPS were created for the CTA chest. Sagittal and coronal reformatted images were also created for both exams. This exam was performed according to our departmental dose optimization program, which includes automated exposure control, adjustment of the mA and/or kV according to patient size, and/or use of iterative reconstruction technique. Unless otherwise specified, incidental findings do not require dedicated imaging follow-up. FINDINGS: CHEST: Possible trace interstitial pulmonary edema with otherwise clear lungs. No pleural effusionor pneumothorax. Patent central airways. Mild-moderate cardiomegaly. Heavily calcified coronary arteries. Aortic valve calcifications. Normal caliber thoracic aorta. Suboptimal contrast bolus timing to evaluate for aortic dissection, no dissection seen. Normal caliber main pulmonary artery without e vidence of pulmonary embolism. No enlarged thoracic adenopathy. Unchanged several chronic appearingnonunited right rib fractures without displacement. No acute appearing osseous abnormality. ABDOMENAND PELVIS: Cirrhotic liver morphology. No evidence of suspicious liver lesion. Mild-moderate splenomegaly. Moderately severe gastroesophageal varices PAGE 1 Signed Report (CONTINUED) FAX: Trinity Trinidad MD [place]: [facility]: REG FAX: Maryjo Noriega MD R3 Name: CAMRON MALDONADO III [facility] : 1945 Age/S: 77/[address] Unit: [id number] Loc: [place] [address] Phys: Maryjo Noriega MD R3 Acct: [id number] Dis Date: Status: REG ER PHONE #: [phone] Exam Date: 06/10/2023 165 FAX #: [phone] Reason: epigastric pain EXAMS: CPT CODE: [id number] CT ABD PELVIS W/CONT 73404 (Continued) and mild umbilical varices. Unremarkable gallbladder, pancreas, and adrenal glands. Kidneys are normal in size without suspicious lesion, nephrolithiasis, or hydronephrosis. Unremarkable urinary bladder. Prostate gland is normal in size. Sigmoid anastomosis without adjacent fluid collection. Mild colonicdiverticulosis without evidence of acute diverticulitis. Moderate amount of stool throughout colon.Mild gastric wall thickening. No evidence of intestinal obstruction, acute appendicitis, ascites, pneumoperitoneum, or fluid collection. No enlarged abdominal or pelvic lymphadenopathy. Normal caliber abdominal aorta. No acute or aggressive appearing osseous abnormality identified. IMPRESSION: Trace interstitial pulmonary edema. Cirrhosis with splenomegaly and varices. Gastritis. at 1734 Reported and signed by: Atul Rider MD PAGE 2 Signed Report (CONTINUED) FAX: Trinity Trinidad MD [place]: [facility]: REG FAX: Maryjo Noriega MD R3 Name: CAMRON MALDONADO [place] : 1945 Age/S: 77/M [address] Unit: [id number] Loc: [place] [address] Phys: Maryjo Noriega MD R3 Acct: [id number] Dis Date: Status: REG ER PHONE #: [phone] Exam Date: 06/10/2023 1652 FAX #: [phone] Reason: epigastric pain EXAMS: CPT CODE: [id number] CT ABD PELVIS W/CONT 93678 (Continued) CC: Trinity Trinidad MD; Maryjo Noirega MD Technologist: Sayra Alegre;MARCELA PERALTA; Franklin Avalos Trnscrd Dt/Tm: 06/10/2023 (173) [email or web address] Orig Print D/T: S: 06/10/2023 (1738 PAGE 3 Signed ReportCBC W/AUTO [id number] 17:30:00* Test Item Value Reference Range Interpretation Comme nts WHITE BLOOD CELL (test code = WBC) 3.7 x10 3/uL 5.0-12.0 L RED BLOOD CELL (test code = RBC) 4.12 x10 6/uL 4.70-6.10 L HEMOGLOBIN (test code = HGB) 11.0 g/dL 14.0-18.0 L HEMATOCRIT (test code = HCT) 34.0 % 37.0-49.0 L MEAN CELL VOLUME (test code = MCV) 83 fL 80-94 N MEAN CELL HGB (test code = MCH) 26.7 pg 27-31 L MEAN CELL HGB CONCENTRATION (test code = MCHC) 32.4 g/dL 33-37 L RED CELL DISTRIBUTION WIDTH (test code = RDW) 25.2 % 11.5-15.5 H PLATELET COUNT (test code = PLT) 83 x10 3/uL 130-400 L MEAN PLATELET VOLUME (test code = MPV) 8.9 fL 9.4-16.4 L NEUTROPHIL % (test code = NT%) 63.4 % 43-65 N IMMATURE GRANULOCYTE % (test code = IG%) 0.3 % 0.0-2.0 N LYMPHOCYTE % (test code = LY%) 25.3 % 20.5-45.5 N MONOCYTE % (test code = MO%) 9.7 % 5.5-11.7 N EOSINOPHIL % (test code = EO%) 0.8 % 0.9-2.9 L BASOPHIL % (test code = BA%) 0.5 % 0.2-1.0 N NUCLEATED RBC % (test code = NRBC%) 0.0 % 0-1.0 N NEUTROPHIL # (test code = NT#) 2.35 x10 3/uL 2.2-4.8 N IMMATURE GRANULOCYTE # (test code = IG#) 0.01 x10 3/uL 0-0.03 N LYMPHOCYTE # (test code = LY#) 0.94 x10 3/uL 1.3-2.9 L MONOCYTE # (test code = MO#) 0.36 x10 3/uL 0.3-0.8 N EOSINOPHIL # (test code = EO#) 0.03 x10 3/uL 0.0-0.2 N BASOPHIL # (test code = BA#) 0.02 x10 3/uL 0.0-0.1 N PLATELET ESTIMATE (test code = PLTEST) DECREASED ADEQUATE PLATELET MORPHOLOGY (test code = PLTMORPH) LARGE PLATELETS SEEN NORMAL DIFFERENTIAL [id number] 17:30:00* Test Item Value Reference Range Interpretation Comme nts POLYCHROMASIA (test code = POLC) 1+ NONE SEEN A ANISOCYTOSIS (test code = ANISO) 1+ NONE SEEN A TEAR DROP CELLS (test code = TEAR) 1+ NONE SEEN A OVALOCYTES (test code = OVAL) 1+ NONE SEEN A - XR CHEST 1 [id number] 17:12:00 [facility] Thanh : 1945 Sex: M FAX: Trinity Trinidad MD [place]: St: REG FAX: Maryjo Noriega MD R3 Name: CAMRON MALDONADO III [facility] : 1945 Age/S: 77/M [address] Unit #: [id number] Loc: [place] [address] Phys: Maryjo Noriega MD R3 Acct: [id number] Dis Date: Status: REG ER PHONE #: [phone] Exam Date: 06/10/2023 1641 FAX #: [phone] Reason: chest pain EXAMS: CPT CODE: [id number] XR CHEST 1 V 40670 EXAM: - XR CHEST1 V Location code:C3 HISTORY: chest pain COMPARISON: 05/17/2023 FINDINGS: Single AP view of the chest is provided. Heart size and vascularity are within normal limits. The lungs are clear of focal consolidation. No effusion, pneumothorax, or acute osseous abnormality. IMPRESSION: 1. No radiographic evidence of acute cardiopulmonary process. Electronically Signed by Jason Gandhi MD on 06/10/2023 at 1712 Reported and signed by: Jason Gandhi MD CC: Trinity Trinidad MD; Maryjo Noriega MD Technologist: AISHA JUNG; STUDENT 2ND YEAR Trnderd Date/Time/By: 06/10/2023 (171) : By: [email or web address] PAGE 1 Signed Report FAX: Trinity Trinidad MD [place]: [facility]: REG FAX: Maryjo Noriega MD R3 Name: CAMRON MALDONADO III : 1945 Age/S: 77/M [address] Unit #: [id number] Loc: [place] [address] Phys: Maryjo Noriega MD R3 Acct: [id number] Dis Date: Status: REG ER PHONE #: [phone] Exam Date: 06/10/2023 1641 FAX #: [phone] Reason: chest pain EXAMS: CPT CODE: [id number] XR CHEST 1 V 57838 (Continued) Orig Print D/T: S: 06/10/2023 (1716) PAGE 2 Signed ReportBASIC METABOLIC [id number] 15:32:00* Test Item Value Reference Range Interpretation Comme nts SODIUM (test code = NA) 133 mmol/L 137-145 L POTASSIUM (test code = K) 4.8 mmol/L 3.4-5.0 N CHLORIDE (test code = CL) 104 mmol/L 98-107 N CARBON DIOXIDE (test code = CO2) 26 mmol/L 22-30 N ANION GAP (test code = GAP) 9 mmol/L 10-20 L GLUCOSE (test code = GLU) 135 mg/dL 74-106 H BLOOD UREA NITROGEN (test code = BUN) 23 mg/dL 9-20 H GLOMERULAR FILTRATION RATE (test code = GFR) 95 mL/min The Glomerular Filtration Rate is a calculated parameterbased on serum Creatinine, patient age and sex. GFR valuesless than 60 mL/min/1.73 square meters are indicative ofChronic Kidney Disease. Values less than 15 mL/min/1.73square meters indicate Kidney failure. The calculation forGFR is based on the CKD-EPI (2020) calculation. This formulais race indifferent and is the recommended formula for GFRby the National Kidney Foundation for Adults.The GFR will not calculate if the sex is unknown or if thepatient's age is <18 years. CREATININE (test code = CREAT) 0.7 mg/dL 0.7-1.3 N CALCIUM (test code = CA) 9.2 mg/dL 8.4-10.2 N INDEX HEMOLYSIS (test code = HEMINDEX) < 15 Index/DL 0-100 N LIVER FUNCTION [id number] 15:32:00* Test Item Value Reference Range Interpretation Comme nts TOTAL PROTEIN (test code = PROT) 6.6 g/dL 6.3-8.2 N "A positive bias may occur for patients taking Eltrombopag(a bone marrow stimulant used to treat thrombocytopenia andaplastic anemia)." ALBUMIN (test code = ALB) 3.5 g/dL 3.5-5.0 N BILIRUBIN TOTAL (test code = BILT) 0.7 mg/dL 0.2-1.3 N "A positive b ias may occur for patients taking Eltrombopag(a bone marrow stimulant used to treat thrombocytopenia andaplastic anemia)." BILIRUBIN CONJUGATED (test code = BILCON) 0 mg/dL 0-0.3 N "A positive bias may occur for patients taking Eltrombopag(a bone marrow stimulant used to treat thrombocytopenia andaplastic anemia)." CONJUGATED BILIRUBIN IS THE REPLACEMENT ASSAY FOR DIRECTBILIRUBIN. BILIRUBIN UNCONJUGATED (test code = BILUNC) 0.6 mg/dL 0-1.1 N SGOT/AST (test code = AST) 24 U/L 15-46 N SGPT/ALT (test code = ALT) 28 U/L 0-49 N ALKALINE PHOSPHATASE (test code = ALKP) 75 U/L 38-126 N [id number] 15:32:00* Test Item Value Reference Range Interpretation Comme nts LIPASE (test code = LIP) 98 U/L 23-300 N [id number] 15:32:00* Test Item Value Reference Range Interpretation Comme nts MAGNESIUM (test code = MAG) 1.7 mg/dL 1.6-2.3 N NT PRO-BRAIN NATRIURETIC [id number] 15:32:00* Test Item Value Reference Range Interpretation Comme nts NT PRO-BRAIN NATRIURETIC PEPTI (test code = PROBNP) 533 pg/mL See_Comment H INTERPRETATION O F RESULTS Results of this test should be used in accordance with the appropriate clinical guidelines and in conjunction with clinical presentation and other diagnostic tests. Clinical guidelines recommend using natriuretic peptides in both Emergency Department (ED) and outpatient settings for diagnosis or exclusion of heart failure (HF). The performance of the VITROS NT-proBNP II test was evaluated separately in each of these settings using published age-independent and age-dependent cutoffs. EMERGENCY DEPARTMENT SETTINGS/INPATIENT: For patients presenting to the ED settings with acute or worsening dyspnea and clinical suspicion of HF, the VITROS NT-proBNP II test results should be interpreted as indicatedin the table below. ========Results(pg/mL) Age Group *Interpretation <300 All *Negative: Heart Failure Unlikely >=450 22-<50 * POSITIVE: Heart Failure >=900 50-<75 Likely >=1800 >=75 --------OUTPATIENT SETTINGS: In the outpatient settings, the optimal use of natriuretic peptides is to exclude HF. Therefore, a lower rule-out cutoff which increases sensitivity and negative predictive value is needed, as patients can present with limited, less acute HF symptoms. For ambulatory patients presenting to outpatient facilitieswith clinical suspicion of HF not previously diagnosed andat least one sign, symptom or risk factor for HF, the VITROSNT-proBNP II test results should be interpreted as indicatedin the table below: Results(pg/mL) Age Group *Interpretation <125 ALL * Negative - Heart Failure Unlikely >=125 ALL * Consider Heart Failure as well as other causes of NT-ProBNP elvation. The following interferents causes a bias at concentrationslisted in procedure. -Cefoxitin sodium -Sodium Azide [Automated message] The system which generated this result transmitted reference range: <20.0-326. The reference range was not used to interpret this result as normal/abnormal. [id number] 15:32:00* Test Item Value Reference Range Interpretation Comme nts TROPONIN-I (test code = TROPI) < 0.012 ng/mL 0.012-0.033 L Please be advised of the updated reference ranges for the new Chemistry instrumentation. VITROS TROPONIN I CRITERIANORMAL PATIENT W/O CIRCULATING TNI: 0.012-0.033 ng/mLAMI DIAGNOSTIC CUTOFF: >/= 0.120 ng/mL~~~~~~~~~~~~~~~~~~~~~~ ~~~~~~~~~~~~~~~~~~~~~~~~~~~ ~~~~~~~~~~The use of serial sampling and testing protocol is arecommended practice.An elevated troponin level alone is often not sufficient fordiagnosis of myocardial infarction. Troponin results obtained by different assays may vary.Evaluation of the extent of myocardial damage based onincrease of troponin would be valid only if similarmethodology is used.~~~~~~~~~~~~~~~~~~~~~~ ~~~~~~~~~~~~~~~~~~~~~~~~~~~ ~~~~~~~~~~ A POSITIVE BIAS MAY OCCUR FOR PATIENTS TAKING BIOTIN SUPPLEMENTS~~~~~~~~~~~~~~~~ ~~~~~~~~~~~~~~~~~~~~~~~~~~~ ~~~~~~~~~~~~~~~~ LACTIC [id number] 15:22:00* Test Item Value Reference Range Interpretation Comme nts LACTIC ACID (test code = LACT) 1.3 mmol/L 0.7-2.0 N PROTHROMBIN [id number] 15:01:00* Test Item Value Reference Range Interpretation Comme nts PROTHROMBIN TIME PATIENT (test code = PTP) 15.6 SECONDS 9.4-12.5 H INTERNATIONAL NORMAL RATIO (test code = INR) 1.4 The INR is to be used only for monitoring ORAL ANTICOAGULANTTHERAPY. Indication INR Value1. Prophylaxis/treatment of: Venous Thrombosis, Pulmonary Embolism 2.0 - 3.02. Prevention of systemic embolism from: Tissue heart valves 2.0 - 3.0 Acute myocardial infarction (to present systemic embolism)* 2.0 - 3.0 Valvular heart disease 2.0 - 3.0 Atrial fibrillation 2.0 - 3.03. Mechanical prosthetic valves (high risk) 2.5 - 3.5 * If oral anticoagulant therapy is elected to preventrecurrent myocardial infarction, an INR of 2.5-3.5 isrecommended, consistent with Food and Drug Administrationrecommen dations. THROMBOPLASTIN TIME [id number] 15:01:00* Test Item Value Reference Range Interpretation Comme nts THROMBOPLASTIN TIME PARTIAL (test code = PTT) 30.6 SECONDS 23.4-37.0 N Therapeutic Rang e for Heparin EFFECTIVE 10/22/12 Heparin IU/mL aPTT Seconds0.3 64.30.7 88.8 - XR PELVIS 1/2 [id number] 10:06:00 [facility] : 1945 Sex: M [place]: [facility] St: REG -- Name: CAMRON MALDONADO III [facility] : 1945 Age/S: 77/M [address] [facility] Unit #: [id number] Loc: [place] [address] Phys: Margo Rajan MD Acct: [id number] Dis Date: Status:REG ER PHONE #: Exam Date: 05/17/2023 0988 FAX #: Reason: fall, head/back/rib/knee pain EXAMS: CPT CODE: [id number] XR PELVIS 1/2 VIEWS 03671 S 17 TIME OF EXAM: 05/17/2023 REASON FOR EXAM: fall, head/back/rib/knee pain COMPARISON: None. FINDINGS: A single AP view of the pelvis was performed. There is no acute fracture or dislocation seen in the bony pelvis. There is no acute fracture, dislocation or avascular necrosis in either of the hip joints. The remainder of the bony pelvis and the sacroiliac joints are unremarkable. IMPRESSION: 1. No acute fracture or dislocation of the pelvis or bilateral proximal femurs. at 1006 Reported and signed by: Mickey Kelly MD CC: Technologist: LEO HEARN [facility] Date/Time/By: 05/17/2023 (1006): By: [email or web address] PAGE 1 Signed Report [place]: [facility] St: REG Name: CAMRON AMLDONADO III [place] : 1945 Age/S: 77/M [address] [facility] Unit #: [id number] Loc: [place] [address] Phys: Margo Rajan MD Acct: [id number] Dis Date: Status: REG ER PHONE #: Exam Date: 05/17/2023 0950 FAX #: Reason: fall, head/back/rib/knee pain EXAMS: CPT CODE: [id number] XR PELVIS 1/2 VIEWS 03166 (Continued) Orig Print D/T: S: 05/17/2023 (1009) PAGE 2 Signed Report- XR KNEE 3 V [id number] 10:05:00 [facility] : 1945 Sex: M [place]: [facility] St: REG -- Name: CAMRON MALDONADO III [facility] : 1945 Age/S: 77/M [address] [facility] Unit #: [id number] Loc: [place] [address] Phys: Margo Rajan MD Acct: [id number] Dis Date: Status:REG ER PHONE #: Exam Date: 05/17/2023 0922 FAX #: Reason: fall, head/back/rib/knee pain EXAMS: CPT C ODE: [id number] XR KN[place] [address] [place] [address] S 17 TIME OF STUDY: 05/17/2023 8:20 AM REASON FOR EXAM: fall, head/back/rib/knee pain COMPARISON: None. FINDINGS: 3 views of the right and left knee each demonstrateno acute fracture or dislocation. Joint spaces are relatively well maintained. There are no radiopaque foreign bodies. IMPRESSION: 1. No acute bony abnormality in the right or left knee. at 1005 Reported and signed by: Mickey Kelly MD CC: Technologist: LEO HEARN Trnscrd Date/Time/By: 05/17/2023 (1005) : By: [email or web address] PAGE 1 Signed Report [place]: [facility] St: REG ---- Name: CAMRON MALDONADO III [facility] : 1945 Age/S: 77/M [address] [facility] Unit #: [id number] Loc: [place] [address] Phys: Margo Rajan MD Acct: [id number] Dis Date:Status: REG ER PHONE #: Exam Date: 05/17/2023 9348 FAX #: Reason: fall, head/back/rib/knee pain EXAMS: CPT CODE: [id number] XR KN[place] [address] [place] [address] (Continued) Orig Print D/T: S: 05/17/2023 (1009) PAGE 2 Signed ReportBASIC METABOLIC [id number] 09:42:00* Test Item Value Reference Range Interpretation Comme nts SODIUM (test code = NA) 137 MMOL/L 135-147 N POTASSIUM (test code = K) 4.3 MMOL/L 3.6-5.2 N CHLORIDE (test code = CL) 100 MMOL/L 98-108 N CARBON DIOXIDE (test code = CO2) 28 mmol/L 21-32 N GLUCOSE (test code = GLU) 374 mg/dL 70-110 HH BLOOD UREA NITROGEN (test code = BUN) 13 MG/DL 6-21 N GLOMERULAR FILTRATION RATE (test code = GFR) 88 mL/min The Glomerular Filtration Rate is a calculated parameterbased on serum Creatinine, patient age and sex. GFR valuesless than 60 mL/min/1.73 square meters are indicative ofChronic Kidney Disease. Values less than 15 mL/min/1.73square meters indicate Kidney failure. The calculation forGFR is based on the CKD-EPI (2020) calculation. This formulais race indifferent and is the recommended formula for GFRby the National Kidney Foundation for Adults.The GFR will not calculate if the sex is unknown or if thepatient's age is <18 years. CREATININE (test code = CREAT) 0.9 mg/dL 0.6-1.3 N CALCIUM (test code = CA) 8.7 mg/dL 8.7-10.5 N CREATINE KINASE (CK)2023-05-17 09:42:00* Test Item Value Reference Range Interpretation Comme nts CREATINE KINASE (CK) (test c ode = CK) 305 UNITS/L 26-308 N - CT 3D CT/MRI/US/OTH NOT [id number] 09:20:00 [facility] : 1945 Sex: M [place]: [facility] St: REG -- Name: CAMRON MALDONADO III [facility] : 1945 Age/S: 77/M [address] [facility] Unit: [id number] Loc: [place] [address] Phys: Margo Rajan MD Acct: [id number] Dis Date: Status: REG ER PHONE #: Exam Date: 05/17/2023 0584 FAX #: Reason: TRAUMA, FALL EXAMS: CPT CODE: [id number] CT 3D CT/MRI/US/OTH NOT IND [id number] EXAM: CHEST, ABDOMEN AND PELVIS CT WITHOUT INTRAVENOUS CONTRAST THORACIC AND LUMBAR SPINE WITHOUT INTRAVENOUS CONTRAST CLINICAL INFORMATION: Trauma, fall. TECHNIQUE: Avolumetric CT acquisition of the chest, abdomen and pelvis was performed without the administrationof intravenous contrast. Additionally, CT images of the thoracic and lumbar spine were performed without intravenous contrast. Coronal and sagittal reformatted images are obtained. 3-D images of the ribs and pelvis were obtained. One or more of the following dose reduction techniques were used: Automated exposure control, adjustment of the mA and/or kV according to patient size, and/or utilization of iterative reconstruction technique. Comparison: None Location: H19 FINDINGS: Unless otherwisespecified, incidental findings do not require dedicated imaging follow- up. Lines and Tubes: None Mediastinum and Vasculature: There are no intrathoracic lymph nodes meeting CT criteria for enlargement. The heart is mildly enlarged. There is no pericardial effusion. The aorta and pulmonary artery are normal in size. There are triple vessel coronary artery calcifications, greatest within the left coronary arteries. The blood pool appears hypodense relative to the myocardium. Paraesophageal and gastrohepatic varices are demonstrated. There is recanalization of the umbilical vein. Airways/Pleura/Lungs: The trachea is patent. The pleura is unremarkable. There is minimal dependent atelectasis. There is no pleural effusion or pneumothorax. Abdomen/Pelvis: Please note that evaluation of the visceral organs is limited without intravenous contrast. There is a nodular morphology of PAGE 1 Signed Re port (CONTINUED) [place]: [facility] St: REG Name: JOEL PARDOCAMRON Law [facility] : 1945 Age/S: 77/M [address] [facility] Unit: [id number] Loc: [place] [address] Phys: Margo Rajan MD Acct: [id number] Date: Status: REG ER PHONE #: Exam Date: 05/17/2023 0820 FAX #: Reason: TRAUMA, FALL EXAMS: CPT CODE: [id number] CT 3D CT/MRI/US/OTH NOT IND [id number] (Continued) the liver. There is question of ill-defined hyperdensity at the portal confluence. There is a radiodense gallstone. The common bile ductis not dilated. The pancreas appears unremarkable. The spleen is enlarged. There are calcified granulomas within the liver and spleen. There is no adrenal mass. Bilateral simple renal cysts are present. There is no hydronephrosis or renal calculus. There is no bowel obstruction. The appendix appears unremarkable. There are chain sutures at the rectosigmoid region with mild stranding at the left posterolateral aspect without obvious mass. There are colonic diverticula without discretely thickened diverticulum or significant pericolonic stranding. The urinary bladder is smooth-walled. The prostate is not enlarged. There is no ascites or pneumoperitoneum. Bones and Soft tissues: There is no acute fracture. There are chronic right rib fractures. There is mild stranding at the anterior perineum. Thoracic/lumbar spine: There is no significant prevertebral soft tissue edema. There is no significant scoliosis or listhesis. The vertebral body heights are maintained. There is multilevel disc space narrowing, advanced at L5-S1. However, discogenic disease appears greatest at L3-4 with moderatespinal canal stenosis and moderate bilateral neural foraminal narrowing. There is facet arthropathyfrom L3-S1. The transverse and spinous processes are intact. IMPRESSION: Limited without intravenous contrast. Within this limitation, no evidence for acute visceral organ injury within the chest, abdomen or pelvis. No acute osseous abnormality of the thoracic or lumbar spine. Findings suggestive of subcutaneous bruising at the anterior peritoneum, correlate with physical exam. Mild stranding atthe rectosigmoid chain sutures, nonspecific. While this could be postsurgical, without comparison with prior imaging follow-up is recommended to exclude a developing lesion. 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 Questionable ill-defined hypodensity in the portal confluence, this could reflect prominent vasculature or an infiltrative lesion, MR imaging of the liver is recommended for further assessment. Colonic diverticula without evidence for diverticulitis. Cholelithiasis. PAGE 2 Signed Report (CONTINUED) [place]: [facility] [address]: REG Name: CAMRON MALDONADO III FSED : 1945 Age/S: 77/M [address] [facility] Unit: [id number] Loc: [place] [address] Phys: Margo Rajan MD Acct: [id number] Dis Date: Status: REG ER PHONE #: Exam Date: 05/17/2023 0838 FAX #: Reason: TRAUMA, FALL EXAMS: CPT CODE: [id number] CT 3D CT/MRI/US/OTH NOT IND 53266 (Continued) Blood pool appears hypodense relative to the myocardium, correlate with serology. Triple-vesselcoronary artery disease. Mild cardiomegaly. Additional chronic findings as above. at 0920 Reported and signed by: Timbo Roca MD CC: Technologist: LEO HEARN Trnscrd Dt/Tm: 05/17/2023 (919) [email or web address] Orig Print D/T: S: 05/17/2023(24 PAGE 3 Signed Report- CT 3D CT/MRI/US/OTH NOT [id number] 09:20:00 [facility] : 1945 Sex: M [place]: [facility] [address]: REG -- Name: CAMRON MALDONADO III FSED : 1945 Age/S: 77/M [address] [facility] Unit: [id number] Loc: [place] [address] Phys: Margo Rajan MD Acct: [id number] Dis Date: Status: REG ER PHONE #: Exam Date: 05/17/2023 2373 FAX #: Reason: TRAUMA, FALL EXAMS: CPT CODE: [id number] CT3D CT/MRI/US/OTH NOT IND 68003 EXAM: CHEST, ABDOMEN AND PELVIS CT WITHOUT INTRAVENOUS CONTRAST THORACIC AND LUMBAR SPINE WITHOUT INTRAVENOUS CONTRAST CLINICAL INFORMATION: Trauma, fall. TECHNIQUE: A volumetric CT acquisition of the chest, abdomen and pelvis was performed without the administration of intravenous contrast. Additionally, CT images of the thoracic and lumbar spine were performed without intravenous contrast. Coronal and sagittal reformatted images are obtained. 3-D images of the ribs and pelvis were obtained. One or more of the following dose reduction techniques were used: Automated exposure control, adjustment of the mA and/or kV according to patient size, and/or utilization of iterative reconstruction technique. Comparison: None Location: H19 FINDINGS: Unless otherwise specified, incidental findings do not require dedicated imaging follow-up. Lines and Tubes: None Mediastinum and Vasculature: There are no intrathoracic lymph nodes meeting CT criteria for enlargement. The heart is mildly enlarged. There is no pericardial effusion. The aorta and pulmonary artery arenormal in size. There are triple vessel coronary artery calcifications, greatest within the left coronary arteries. The blood pool appears hypodense relative to the myocardium. Paraesophageal and gastrohepatic varices are demonstrated. There is recanalization of the umbilical vein. Airways/Pleura/Lungs: The trachea is patent. The pleura is unremarkable. There is minimal dependent atelectasis. There is no pleural effusion or pneumothorax. Abdomen/Pelvis: Please note that evaluation of the visceral organs is limited without intravenous contrast. There is a nodular morphology of PAGE 1 Signed Rep ort (CONTINUED) [place]: [facility]: REG Name: CAMRON MALDONADO IIIveland FSED : 1945 Age/S: 77/M [address] [facility] Unit: [id number] Loc: [place] [address] Phys: Margo Rajan MD Acct: [id number] Date: Status: REG ER PHONE #: Exam Date: 05/17/2023 0864 FAX #: Reason: TRAUMA, FALL EXAMS: CPTCODE: [id number] CT 3D CT/MRI/US/OTH NOT IND 53844 (Continued) the liver. There is question of ill-defined hyperdensity at the portal confluence. There is a radiodense gallstone. The common bile ductis not dilated. The pancreas appears unremarkable. The spleen is enlarged. There are calcified granulomas within the liver and spleen. There is no adrenal mass. Bilateral simple renal cysts are present. There is no hydronephrosis or renal calculus. There is no bowel obstruction. The appendix appears unremarkable. There are chain sutures at the rectosigmoid region with mild stranding at the left posterolateral aspect without obvious mass. There are colonic diverticula without discretely thickened diverticulum or significant pericolonic stranding. The urinary bladder is smooth-walled. The prostate is not enlarged. There is no ascites or pneumoperitoneum. Bones and Soft tissues: There is no acute fracture. There are chronic right rib fractures. There is mild stranding at the anterior perineum. Thoracic/lumbar spine: There is no significant prevertebral soft tissue edema. There is no significant scoliosis or listhesis. The vertebral body heights are maintained. There is multilevel disc space narrowing, advanced at L5-S1. However, discogenic disease appears greatest at L3-4 with moderate spinal canal stenosis and moderate bilateral neural foraminal narrowing. There is facet arthropathy from L3-S1. The transverse and spinous processes are intact. IMPRESSION: Limited without intravenous contrast. Within this limitation, no evidence for acute visceral organ injury within the chest, abdomen or pelvis. No acute osseous abnormality of the thoracic or lumbar spine. Findings suggestive o f subcutaneous bruising at the anterior peritoneum, correlate with physical exam. Mild stranding atthe rectosigmoid chain sutures, nonspecific. While this could be postsurgical, without comparison with prior imaging follow-up is recommended to exclude a developing lesion. 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 Questionable ill-defined hypodensity in theportal confluence, this could reflect prominent vasculature or an infiltrative lesion, MR imaging of the liver is recommended for further assessment. Colonic diverticula without evidence for diverticulitis. Cholelithiasis. PAGE 2 Signed Report (CONTINUED) [place]: [facility] [address]: REG Name: JOELCAMRON JAIMES III FSED : 1945 Age/S: 77/M [address] [facility] Unit: [id number] Loc: [place] [address] Phys: Margo Rajan MD Acct: [id number] Dis Date: Status: REG ER PHONE #: Exam Date: 05/17/2023 0858FAX #: Reason: TRAUMA, FALL EXAMS: CPT CODE: [id number] CT 3D CT/MRI/US/OTH NOT IND 83951 (Continued) Blood pool appears hypodense relative to the myocardium, correlate with serology. Triple-vessel coronary artery disease. Mild cardiomegaly. Additional chronic findings as above. at 0920 Reported and signed by: Timbo Roca MD CC: Technologist: LEO HEARN Trnscrd Dt/Tm: 05/17/2023 (0920) [email or web address] Orig Print D/T: S: 05/17/2023 (0924 PAGE 3 Signed Report- CT ABD PELVIS W/O [id number] 09:20:00[facility] : 1945 Sex: M [place]: [facility] [address]: REG -- Name: CAMRON MALDONADO III FSED : 1945 Age/S: 77/M [address] [facility] Unit: [id number] Loc: [place] [address] Phys: Margo Rajan MD Acct: [id number] Dis Date: Status: REG ER PHONE #: Exam Date: 05/17/2023 1045 FAX #: Reason: fall, pelvis, abd pain EXAMS: CPT CODE: [id number] CT ABD PELVIS W/O CONT 34381 EXAM: CHEST, ABDOMEN AND PELVIS CT WITHOUT INTRAVENOUS CONTRAST THORACIC AND LUMBAR SPINE WITHOUT INTRAVENOUS CONTRAST CLINICAL INFORMATION: Trauma, fall. TECHNIQUE: A volumetric CT acquisition of the chest, abdomen and pelvis was performed without the administration of intravenous contrast. Additionally, CT images of the thoracic and lumbar spine were performedwithout intravenous contrast. Coronal and sagittal reformatted images are obtained. 3-D images of the ribs and pelvis were obtained. One or more of the following dose reduction techniques were used: Automated exposure control, adjustment of the mA and/or kV according to patient size, and/or utilization of iterative reconstruction technique. Comparison: None Location: H19 FINDINGS: Unless otherwise specified, incidental findings do not require dedicated imaging follow-up. Lines and Tubes: None Mediastinum and Vasculature: There are no intrathoracic lymph nodes meeting CT criteria for enlargement. The heart is mildly enlarged. There is no pericardial effusion. The aorta and pulmonary artery are normal in size. There are triple vessel coronary artery calcifications, greatest within the left coronary arteries. The blood pool appears hypodense relative to the myocardium. Paraesophageal and gastrohepatic varices are demonstrated. There is recanalization of the umbilical vein. Airways/Pleura/Lungs: The trachea is patent. The pleura is unremarkable. There is minimal dependent atelectasis. There is no pleural effusion or pneumothorax. Abdomen/Pelvis: Please note that evaluation of the visceral organs is limited without intravenous contrast. There is a nodular morphology of PAGE 1 Signed R eport (CONTINUED) [place]: [facility] [address]: REG Name: CAMRON MALDONADO III FSED : 1945 Age/S: 77/M [address] [facility] Unit: [id number] Loc: [place] [address] Phys: Margo Rajan MD Acct: [id number] Date: Status: REG ER PHONE #: Exam Date: 05/17/2023 4561 FAX #: Reason: fall, pelvis, abd pain EXAMS: CPT CODE: [id number] CT ABD PELVIS W/O CONT 20741 (Continued) the liver. There is question ofill-defined hyperdensity at the portal confluence. There is a radiodense gallstone. The common bileduct is not dilated. The pancreas appears unremarkable. The spleen is enlarged. There are calcifiedgranulomas within the liver and spleen. There is no adrenal mass. Bilateral simple renal cysts are p resent. There is no hydronephrosis or renal calculus. There is no bowel obstruction. The appendix appears unremarkable. There are chain sutures at the rectosigmoid region with mild stranding at the left posterolateral aspect without obvious mass. There are colonic diverticula without discretely thickened diverticulum or significant pericolonic stranding. The urinary bladder is smooth-walled. The prostate is not enlarged. There is no ascites or pneumoperitoneum. Bones and Soft tissues: There is no acute fracture. There are chronic right rib fractures. There is mild stranding at the anterior perineum. Thoracic/lumbar spine: There is no significant prevertebral soft tissue edema. There is no significant scoliosis or listhesis. The vertebral body heights are maintained. There is multilevel disc space narrowing, advanced at L5-S1. However, discogenic disease appears greatest at L3-4 with moderate spinal canal stenosis and moderate bilateral neural foraminal narrowing. There is facet arthropathy from L3-S1. The transverse and spinous processes are intact. IMPRESSION: Limited without intravenous contrast. Within this limitation, no evidence for acute visceral organ injury within the chest, abdomen or pelvis. No acute osseous abnormality of the thoracic or lumbar spine. Findings suggestive of subcutaneous bruising at the anterior peritoneum, correlate with physical exam. Mild stranding at the rectosigmoid chain sutures, nonspecific. While this could be postsurgical, without comparison with prior imaging follow-up is recommended to exclude a developing lesion. 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 Questionable ill-defined hypodensity in the portal confluence, this could reflect prominent vasculature or an infiltrative lesion, MR imaging of the liver is recommended for further assessment. Colonic diverticula without evidence for diverticulitis. Cholelithiasis. PAGE 2 Signed Report (CONTINUED) [place]: [facility] [address]: REG Name: JOEL PARDOCAMRON FSED : 1945 Age/S: 77/M [address] [facility] Unit: [id number] Loc: [place] [address] Phys: Margo Rajan MD Acct: [id number] Dis Date: Status: REG ER PHONE #: Exam Date: 05/17/2023 0818 FAX #: Reason: fall, pelvis, abd pain EXAMS: CPT CODE: [id number] CT ABD PELVIS W/O CONT 36641 (Continued) Blood pool appears hypodense relative to the myocardium, correlate with serology. Triple-vessel coronary artery disease. Mild cardiomegaly. Additional chronic findings as above. at 0920 Reported and signed by: Timbo Roca MD C: Technologist: LEO HEARN Trnscrd Dt/Tm: 05/17/2023 (0920) [email or web address] Orig Print D/T: S: 05/17/2023 (0924 PAGE 3 Signed Report- CT L-SPINE W/O [id number] 09:20:00 [facility] : 1945 Sex: M [place]: [facility] [address]: REG -- Name: CAMRON MALDONADO III Anderson [facility] : 1945 Age/S: 77/M [address] [facility] Unit: [id number] Loc: [place] [address] Phys: Margo Rajan MD Acct: [id number] Dis Date: Status: REG ER PHONE #: Exam Date: 05/17/2023 0858 FAX #: Reason: fall, head/back/rib/knee pain EXAMS: CPT CODE: [id number] CT L-SPINE W/O CONTRAST 59358 EXAM: CHEST, ABDOMEN AND PELVIS CT WITHOUT INTRAVENOUS CONTRAST THORACIC AND LUMBAR SPINE WITHOUT INTRAVENOUS CONTRAST CLINICAL INFORMATION: Trauma, fall.TECHNIQUE: A volumetric CT acquisition of the chest, abdomen and pelvis was performed without the administration of intravenous contrast. Additionally, CT images of the thoracic and lumbar spine were performed without intravenous contrast. Coronal and sagittal reformatted images are obtained. 3-D images of the ribs and pelvis were obtained. One or more of the following dose reduction techniques were used: Automated exposure control, adjustment of the mA and/or kV according to patient size, and/or utilization of iterative reconstruction technique. Comparison: None Location: H19 FINDINGS: Unless otherwise specified, incidental findings do not require dedicated imaging follow-up. Lines and Tubes: None Mediastinum and Vasculature: There are no intrathoracic lymph nodes meeting CT criteria for enlargement. The heart is mildly enlarged. There is no pericardial effusion. The aorta and pulmonary artery are normal in size. There are triple vessel coronary artery calcifications, greatest within the left coronary arteries. The blood pool appears hypodense relative to the myocardium. Paraesophageal and gastrohepatic varices are demonstrated. There is recanalization of the umbilical vein. Airw ays/Pleura/Lungs: The trachea is patent. The pleura is unremarkable. There is minimal dependent atelectasis. There is no pleural effusion or pneumothorax. Abdomen/Pelvis: Please note that evaluation of the visceral organs is limited without intravenous contrast. There is a nodular morphology of PAGE 1 Signed Report (CONTINUED) [place]: [facility] [address]: REG Name: JOEL PARDOCAMRON Dickinson FSED : 1945 Age/S: 77/M [address] [facility] Unit: [id number] Loc: [place] [address] Phys: Margo Rajan MD Acct: [id number] Dis Date: Status: REG ER PHONE #: Exam Date: 05/17/2023 9134 FAX #: Reason: fall, head/back/rib/knee pain EXAMS: CPT CODE: [id number] CT L-SPINE W/O CONTRAST 79477 (Continued) the liver. There is question of ill-defined hyperdensity at the portal confluence. There is a radiodense gallstone. The common bile duct is not dilated. The pancreas appears unremarkable. The spleen is enlarged. There are calcified granulomas within the liver and spleen. There is no adrenal mass. Bilateral simplerenal cysts are present. There is no hydronephrosis or renal calculus. There is no bowel obstruction. The appendix appears unremarkable. There are chain sutures at the rectosigmoid region with mild stranding at the left posterolateral aspect without obvious mass. There are colonic diverticula without discretely thickened diverticulum or significant pericolonic stranding. The urinary bladder is smo oth-walled. The prostate is not enlarged. There is no ascites or pneumoperitoneum. Bones and Soft tissues: There is no acute fracture. There are chronic right rib fractures. There is mild stranding at the anterior perineum. Thoracic/lumbar spine: There is no significant prevertebral soft tissue edema. There is no significant scoliosis or listhesis. The vertebral body heights are maintained. There is multilevel disc space narrowing, advanced at L5-S1. However, discogenic disease appears greatest at L3-4 with moderate spinal canal stenosis and moderate bilateral neural foraminal narrowing. There is facet arthropathy from L3-S1. The transverse and spinous processes are intact. IMPRESSION: Limited without intravenous contrast. Within this limitation, no evidence for acute visceral organ injury within the chest, abdomen or pelvis. No acute osseous abnormality of the thoracic or lumbar spine. Findings suggestive of subcutaneous bruising at the anterior peritoneum, correlate with physical ex am. Mild stranding at the rectosigmoid chain sutures, nonspecific. While this could be postsurgical, without comparison with prior imaging follow-up is recommended to exclude a developing lesion. 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 Questionable ill-defined hypodensity in the portal confluence, this could reflect prominent vasculature or an infiltrative lesion, MR imaging of the liver is recommended for further assessment. Colonic diverticula withoutevidence for diverticulitis. Cholelithiasis. PAGE 2 Signed Report (CONTINUED) [place]: [facility]: REG--- Name: CAMRON MALDONADO III Barron FSED : 1945 Age/S: 77/M [address] [facility] Unit: [id number] Loc: [place] [address] Phys: Margo Rajan MD Acct: [id number] Dis Date: Status: REG ER PHONE #: Exam Date: 05/17/2023 0858 FAX #: Reason: fall, head/back/rib/knee pain EXAMS: CPT CODE: [id number] CT L-SPINE W/O CONTRAST 57638 (Continued) Blood pool appears hypodense relative to the myocardium, correlate with serology. Triple-vessel coronary artery disease. Mild cardiomegaly. Additional chronic findings as above. at 0920 Reported and signed by: Timbo Roca MD CC: Technologist: LEO HEARN Trnscrd Dt/Tm: 05/17/2023 (919) [email or web address] Print D/T: S: 05/17/2023 (24 PAGE 3 Signed Report- CT T- SPINE W/O [id number] 09:20:00 [facility] : 1945 Sex: M [place]: [facility] [address]: REG -- Name: CAMRON MALDONADO III ED : 1945 Age/S: 77/M [address] [facility] Unit: [id number] Loc: [place] [address] Phys: Margo Rajan MD Acct: [id number] Dis Date: Status: REG ER PHONE #: Exam Date: 05/17/202394 FAX #: Reason: fall, head/back/rib/knee pain EXAMS: CPT CODE: [id number] CT T-SPINE W/O CONTRAST 97781 EXAM: CHEST, ABDOMEN AND PELVIS CT WITHOUT INTRAVENOUS CONTRAST THORACIC AND LUMBAR SPINE WITHOUT INTRAVENOUS CONTRAST CLINICAL INFORMATION: Trauma, fall. TECHNIQUE: A volumetric CT acquisition of the chest, abdomen and pelvis was performed without the administration of intravenous contrast. Additionally, CT images of the thoracic and lumbar spine were performed without intravenous contrast. Coronal and sagittal reformatted images are obtained. 3-D images of the ribs and pelvis were obtained. One or more of the following dose reduction techniqueswere used: Automated exposure control, adjustment of the mA and/or kV according to patient size, and/or utilization of iterative reconstruction technique. Comparison: None Location: H19 FINDINGS: Unless otherwise specified, incidental findings do not require dedicated imaging follow-up. Lines and Tubes: None Mediastinum and Vasculature: There are no intrathoracic lymph nodes meeting CT criteria for enlargement. The heart is mildly enlarged. There is no pericardial effusion. The aorta and pulmonary artery are normal in size. There are triple vessel coronary artery calcifications, greatest within the left coronary arteries. The blood pool appears hypodense relative to the myocardium. Paraesophageal and gastrohepatic varices are demonstrated. There is recanalization of the umbilical vein. Air ways/Pleura/Lungs: The trachea is patent. The pleura is unremarkable. There is minimal dependent atelectasis. There is no pleural effusion or pneumothorax. Abdomen/Pelvis: Please note that evaluationof the visceral organs is limited without intravenous contrast. There is a nodular morphology of PAGE 1 Signed Report (CONTINUED) [place]: [facility]: REG Name: CAMRON MALDONADO III FSED : 1945 Age/S: 77/M [address] [facility] Unit: [id number] Loc: [place] [address] Phys: Margo Rajan MD Acct: [id number] Dis Date: Status: REG ER PHONE #: Exam Date: 05/17/2023 2253 FAX #: Reason: fall, head/back/rib/knee pain EXAMS: CPT CODE: [id number] CT T-SPINE W/O CONTRAST 81160 (Continued) the liver. There is question of ill-defined hyperdensity at the portal confluence. There is a radiodense gallstone. The common bile duct is not dilated. The pancreas appears unremarkable. The spleen is enlarged. There are calcified granulomas within the liver and spleen. There is no adrenal mass. Bilateral simple renal cysts are present. There is no hydronephrosis or renal calculus. There is no bowel obstruction. The appendix appears unremarkable. There are chain sutures at the rectosigmoid region with mildstranding at the left posterolateral aspect without obvious mass. There are colonic diverticula without discretely thickened diverticulum or significant pericolonic stranding. The urinary bladder is s mooth-walled. The prostate is not enlarged. There is no ascites or pneumoperitoneum. Bones and Softtissues: There is no acute fracture. There are chronic right rib fractures. There is mild strandingat the anterior perineum. Thoracic/lumbar spine: There is no significant prevertebral soft tissue edema. There is no significant scoliosis or listhesis. The vertebral body heights are maintained. There is multilevel disc space narrowing, advanced at L5-S1. However, discogenic disease appears greatest at L3-4 with moderate spinal canal stenosis and moderate bilateral neural foraminal narrowing. There is facet arthropathy from L3-S1. The transverse and spinous processes are intact. IMPRESSION: Limited without intravenous contrast. Within this limitation, no evidence for acute visceral organ injury within the chest, abdomen or pelvis. No acute osseous abnormality of the thoracic or lumbar spine. Findings suggestive of subcutaneous bruising at the anterior peritoneum, correlate with physical e xam. Mild stranding at the rectosigmoid chain sutures, nonspecific. While this could be postsurgical, without comparison with prior imaging follow-up is recommended to exclude a developing lesion. 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 Questionable ill-defined hypodensity in the portal confluence, this could reflect prominent vasculature or an infiltrative lesion, MR imaging of the liver is recommended for further assessment. Colonic diverticula without evidence for diverticulitis. Cholelithiasis. PAGE 2 Signed Report (CONTINUED) [place]: [facility] [address]: REG- Name: CAMRON MALDONADO III [facility] : 1945 Age/S: 77/M [address] [facility] Unit: [id number] Loc: [place] [address] Phys: Margo Rajan MD Acct: [id number] Dis Date: Status: REG ER PHONE #: Exam Date: 05/17/2023 0858 FAX #: Reason: fall, head/back/rib/knee pain EXAMS: CPT CODE: [id number] CTT-SPINE W/O CONTRAST 79795 (Continued) Blood pool appears hypodense relative to the myocardium, correlate with serology. Triple-vessel coronary artery disease. Mild cardiomegaly. Additional chronic findings as above. at 0920 Reported and signed by: Timbo Roca MD CC: Technologist: LEO HEARN Trnscrd Dt/Tm: 05/17/2023 (0920) [email or web address] Orig Print D/T: S: 05/17/2023 (0924 PAGE 3 Signed Report- CT CHEST W/O [id number] 09:20:00 [facility] 1945 Sex: M [place]: [facility] [address]: REG -- Name: CAMRON MALDONADO III FSED : 1945 Age/S: 77/M [address] [facility] Unit: [id number] Loc: [place] [address] Phys: Margo Rajan MD Acct: [id number] Dis Date: Status: REG ER PHONE #: Exam Date: 05/17/2023 3865 FAX #: Reason: fall, head/back/rib/knee pain EXAMS: CPT CODE: [id number] CT CHEST W/O CONTRAST 86647 EXAM: CHEST, ABDOMEN AND PELVIS CT WITHOUT INTRAVENOUS CONTRAST THORACIC AND LUMBAR SPINE WITHOUT INTRAVENOUS CONTRAST CLINICAL INFORMATION: Trauma, fall. TECHNIQUE: A volumetric CT acquisition of the chest, abdomen and pelvis was performed without the administration of intravenous contrast. Additionally, CT images of the thoracic and lumbar spine were pe rformed without intravenous contrast. Coronal and sagittal reformatted images are obtained. 3-D images of the ribs and pelvis were obtained. One or more of the following dose reduction techniques were used: Automated exposure control, adjustment of the mA and/or kV according to patient size, and/or utilization of iterative reconstruction technique. Comparison: None Location: H19 FINDINGS: Unlessotherwise specified, incidental findings do not require dedicated imaging follow-up. Lines and Tubes: None Mediastinum and Vasculature: There are no intrathoracic lymph nodes meeting CT criteria for enlargement. The heart is mildly enlarged. There is no pericardial effusion. The aorta and pulmonaryartery are normal in size. There are triple vessel coronary artery calcifications, greatest within the left coronary arteries. The blood pool appears hypodense relative to the myocardium. Paraesophageal and gastrohepatic varices are demonstrated. There is recanalization of the umbilical vein. Airway s/Pleura/Lungs: The trachea is patent. The pleura is unremarkable. There is minimal dependent atelectasis. There is no pleural effusion or pneumothorax. Abdomen/Pelvis: Please note that evaluation ofthe visceral organs is limited without intravenous contrast. There is a nodular morphology of PAGE 1 Signed Report (CONTINUED) [place]: [facility] St: REG Name: JOEL IIICAMRON FSED : 1945 Age/S: 77/M [address] [facility] Unit: [id number] Loc: [place] [address] Phys: Margo Rajan MD Acct: [id number] Dis Date: Status: REG ER PHONE #: Exam Date: 05/17/2023 4991 FAX #: Reason: fall, head/back/rib/knee pain EXAMS: CPT CODE: [id number] CT CHEST W/O CONTRAST 40023 (Continued) the liver. There is question of ill-defined hyperdensity at the portal confluence. There is a radiodense gallstone.The common bile duct is not dilated. The pancreas appears unremarkable. The spleen is enlarged. There are calcified granulomas within the liver and spleen. There is no adrenal mass. Bilateral simple renal cysts are present. There is no hydronephrosis or renal calculus. There is no bowel obstruction. The appendix appears unremarkable. There are chain sutures at the rectosigmoid region with mild stranding at the left posterolateral aspect without obvious mass. There are colonic diverticula without discretely thickened diverticulum or significant pericolonic stranding. The urinary bladder is smooth-walled. The prostate is not enlarged. There is no ascites or pneumoperitoneum. Bones and Soft tissues: There is no acute fracture. There are chronic right rib fractures. There is mild stranding at the anterior perineum. Thoracic/lumbar spine: There is no significant prevertebral soft tissue edema. There is no significant scoliosis or listhesis. The vertebral body heights are maintained. There is multilevel disc space narrowing, advanced at L5-S1. However, discogenic disease appears greatest at L3-4 with moderate spinal canal stenosis and moderate bilateral neural foraminal narrowing. There is facet arthropathy from L3-S1. The transverse and spinous processes are intact. IMPRESSION: Limited without intravenous contrast. Within this limitation, no evidence for acute visceral organ injury within the chest, abdomen or pelvis. No acute osseous abnormality of the thoracic or lumbar spine. Findings suggestive of subcutaneous bruising at the anterior peritoneum, correlate with physical e xam. Mild stranding at the rectosigmoid chain sutures, nonspecific. While this could be postsurgical, without comparison with prior imaging follow-up is recommended to exclude a developing lesion. 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 Questionable ill-defined hypodensity in the portal confluence, this could reflect prominent vasculature or an infiltrative lesion, MR imaging of the liver is recommended for further assessment. Colonic diverticula without evidence for diverticulitis. Cholelithiasis. PAGE 2 Signed Report (CONTINUED) [place]: [facility] [address]: REG Name: CAMRON MALDONADO III Dickinson FSED : 1945 Age/S: 77/M [address] [facility] Unit: [id number] Loc: [place] [address] Phys: Margo Rajan MD Acct: [id number] Dis Date: Status: REG ER PHONE #: Exam Date: 05/17/2023 6334 FAX #: Reason: fall, head/back/rib/knee pain EXAMS: CPT CODE: [id number] CTCHEST W/O CONTRAST 26161 (Continued) Blood pool appears hypodense relative to the myocardium, correlate with serology. Triple-vessel coronary artery disease. Mild cardiomegaly. Additional chronic findings as above. at 0920 Reported and signed by: Timbo Roca MD CC: Technologist: LEO HEARN Trnscrd Dt/Tm: 05/17/2023 (919) [email or web address] Orig Print D/T: S: 05/17/2023 (4676 PAGE 3 Signed Report- CT HEAD/BRAIN W/O [id number] 09:03:00 [facility] A[facility] MALDONADOER Thanh : 1945 Sex: M [place]: [facility] [address]: PRE -- Name: CAMRON MALDONADO III FSED : 1945 Age/S: 77/M [address] [facility] Unit: [id number] Loc: [place] [address] Phys: Margo Rajan MD Acct: [id number] Dis Date: Status: PRE ER PHONE #: Exam Date: 05/17/2023 0066 FAX #: Reason: fall, head/back/rib/knee pain EXAMS: CPT CODE: [id number] CT HEAD/BRAIN W/O CONT 01718 Exam: CT of the brain and cervical spine without contrast. History: Fall, pain. Technique: Contiguous axial CT images were obtained from the skull base through the vertex without intravenous contrast. Contiguous axial CT images were obtained of the cervicalspine without intravenous contrast. Coronal and sagittal reformatted images were obtained. One or more of the following dose reduction techniques were used: Automated exposure control, adjustment ofthe mA and/or kV according to patient size, and/or utilization of iterative reconstruction technique. Comparison: None Location: H19 Findings: Head: There is moderate cerebral atrophy. Mild chronic microvascular ischemic changes are present. The basal cisterns are patent. There is no mass effect ormidline shift. There is no evidence for acute territorial infarction. There is no acute intracranial hemorrhage. There are no extra-axial fluid collections. The visualized paranasal sinuses and mastoid air cells are clear. Cervical spine: The prevertebral soft tissues are within normal limits. The vertebral body heights are maintained. There is multilevel intervertebral disc space narrowing, advanced at C5-6 and C6-7. There is no evidence of a perched facet. The spinous processes are intact. The visualized thyroid and lung apices are unremarkable. Impression: No CT evidence of an acute intracranial abnormality. No acute cervical spine fracture. PAGE 1 Signed Report (CONTINUED) [place]: [facility] [address]: PRE -- Name: CAMRON MALDONADO III Dickinson FS : 1945 Age/S: 77/M [address] [facility] Unit: [id number] Loc: [place] [address] Phys: Margo Rajan MD Acct: [id number] Dis Date: Status: PRE ER PHONE #: Exam Date: 05/17/2023 0881 FAX #: Reason: fall, head/back/rib/knee pain EXAMS: CPT CODE: [id number] HEAD/BRAIN W/O CONT 03222 (Continued) at 0903 Reported and signed by: Timbo Roca MD CC: Technologist: LEO HEARN Trnscrd Dt/Tm: 05/17/2023 (0903) [email or web address] Orig Print D/T: S: 05/17/2023 (0906 PAGE 2 Signed Report- CT C-SPINE W/O CONT 2023-05-17 09:03:00 [facility] MAL[place] : 1945 Sex: M [place]: [facility] St: PRE -- Name: CAMRON MALDONADO III Anderson FSED : 1945 Age/S: 77/M [address] [facility] Unit: [id number] Loc: [place] [address] Phys: Margo Rajan MD Acct: [id number] Dis Date: Status: PRE ER PHONE #: Exam Date: 05/17/2023 0871 FAX #: Reason: fall, head/back/rib/knee pain EXAMS: CPT CODE: [id number] CT C-SPINE W/O CONT 03156 Exam: CT of the brain and cervical spine without contrast. History: Fall, pain. Technique: Contiguous axial CT images were obtained from the skull base through the vertex without intravenous contrast. Contiguous axial CT images were obtained of the cervical spine without intravenous contrast. Coronal and sagittal reformatted images were obtained. One or more of the following dose reduction techniques were used: Automated exposure control, adjustment ofthe mA and/or kV according to patient size, and/or utilization of iterative reconstruction technique. Comparison: None Location: H19 Findings: Head: There is moderate cerebral atrophy. Mild chronic m icrovascular ischemic changes are present. The basal cisterns are patent. There is no mass effect or midline shift. There is no evidence for acute territorial infarction. There is no acute intracranial hemorrhage. There are no extra-axial fluid collections. The visualized paranasal sinuses and mastoid air cells are clear. Cervical spine: The prevertebral soft tissues are within normal limits. Thevertebral body heights are maintained. There is multilevel intervertebral disc space narrowing, advanced at C5-6 and C6-7. There is no evidence of a perched facet. The spinous processes are intact. The visualized thyroid and lung apices are unremarkable. Impression: No CT evidence of an acute intracranial abnormality. No acute cervical spine fracture. PAGE 1 Signed Report (CONTINUED) [place]: [facility]: PRE -- Name: ARIANNACAMRON Barron FS : 1945 Age/S: 77/M [address] [facility] Unit: [id number] Loc: [place] [address] Phys: Margo Rajan MD Acct: [id number] Dis Date: Status: PRE ER PHONE #: Exam Date: 05/17/2023 0858 FAX #: Reason: fall, head/back/rib/knee pain EXAMS: CPT CODE: [id number] CT C-SPINE W/O CONT 99791 (Continued) t 09 Reported and signed by: Timbo Roca MD CC: Technologist: LEO HEARN Trnscrd Dt/Tm: 05/17/2023 (902) [email or web address] Orig Print D/T: S: 05/17/2023 (905 PAGE 2 Signed ReportCBC W/AUTO [id number] 09:01:00* Test Item Value Reference Range Interpretation Comme nts WHITE BLOOD CELL (test code = WBC) 3.5 x10 3/uL 5.0-12.0 L RED BLOOD CELL (test code = RBC) 4.62 x10 6/uL 4.70-6.10 L HEMOGLOBIN (test code = HGB) 11.3 g/dL 14.0-18.0 L HEMATOCRIT (test code = HCT) 35.7 % 37.0-49.0 L MEAN CELL VOLUME (test code = MCV) 77 fL 80-94 L MEAN CELL HGB (test code = MCH) 24.5 pg 27-31 L MEAN CELL HGB CONCENTRATION (test code = MCHC) 31.7 g/dL 33-37 L RED CELL DISTRIBUTION WIDTH (test code = RDW) 24.9 % 11.5-15.5 H PLATELET COUNT (test code = PLT) 80 x10 3/uL 130-400 L MEAN PLATELET VOLUME (test c ode = MPV) 0.0 fL 9.4-16.4 L NEUTROPHIL % (test code = NT%) 70.1 % 43-65 H IMMATURE GRANULOCYTE % (test code = IG%) 1.2 % 0.0-2.0 N LYMPHOCYTE % (test code = LY%) 18.3 % 20.5-45.5 L MONOCYTE % (test code = MO%) 8.4 % 5.5-11.7 N EOSINOPHIL % (test code = EO%) 1.7 % 0.9-2.9 N BASOPHIL % (test code = BA%) 0.3 % 0.2-1.0 N NEUTROPHIL # (test code = NT#) 2.42 x10 3/uL 2.2-4.8 N IMMATURE GRANULOCYTE # (test code = IG#) 0.04 x10 3/uL 0-0.03 H LYMPHOCYTE # (test code = LY#) 0.63 x10 3/uL 1.3-2.9 L MONOCYTE # (test code = MO#) 0.29 x10 3/uL 0.3-0.8 L EOSINOPHIL # (test code = EO#) 0.06 x10 3/uL 0.0-0.2 N BASOPHIL # (test code = BA#) 0.01 x10 3/uL 0.0-0.1 N
[2024-05-25] MEDS ORDERED: FLEET ENEMA ADULT PR ONE ×2 (11:52→12:27)
[2024-05-25] MEDS ORDERED: NA CHLORIDE 0.9% 1,000 ML ONE (11:52)
[2024-05-25 12:01] LABS: Absolute Monocytes 0.5 K/uL (0.1-1.3); Absolute Neutrophil 4.6 K/uL (1.8-8.0); Basophils % 0.6 % (0-1.3); Eosinophils % 0.6 % (0-4.4); Hematocrit 45.1 % (39.6-49.0); Lymphocytes % 16.1 % (15.3-44.8); MCH 30.4 pg (27.0-35.0); MCHC 35.4 g/dL (32.0-36.0); MCV 85.9 fL (80-100); MPV 8.7 fL (7.6-11.3); Monocytes % 8.2 % (3.3-12.3); Neutrophils % 74.5 % (41.7-73.7); Platelets 98 thou/uL (152-406); RBC Red Blood Cell Count 5.25 M/uL (4.33-5.43)
[2024-05-25 12:14] LABS: Sqamous Epithelial <5 /HPF (None Seen); Urine Bacteria None Seen /HPF (<20); Urine Microscopic Reflex YN ORDER UMIC; Urine RBC <5 /HPF (None Seen); Urine WBC <5 /HPF (<5)
[2024-05-25 12:15] LABS: Albumin 3.7 g/dL (3.4-5.0); Albumin/Globulin Ratio 0.8 (1.1-1.8); Anion Gap 14.3 mEq/L (5.0-15.0); Bilirubin Total 1.6 mg/dL (0.2-1.0); Globulin 4.9 g/dL (2.3-3.5); Potassium 4.3 mEq/L (3.5-5.1); Protein, Total 8.6 g/dL (6.4-8.2)
[2024-05-25 12:15] LABS: Specific Gravity > 1.030 (1.005-1.030); Urine Bilirubin NEGATIVE (Negative); Urine Blood Negative (Negative); Urine Clarity Clear (Clear); Urine Color Light-Yellow (Yellow); Urine Glucose 4+ (Over) (Negative); Urine Ketones NEGATIVE (Negative); Urine Nitrite NEGATIVE (Negative); Urine Protein NEGATIVE (Negative); Urine Urobilinogen Normal (Normal); Urine pH 5.5 (5.0-7.0)
[2024-05-25 13:01] LABS: Blood Morphology Comment NOT SEEN (NOT SEEN); Platelet Estimate DECR; White Blood Cell Scan OK (OK)
--- NOTE | 2024-05-25 13:38 | RAD REPORT ---
EXAMINATION: CT ABDOMEN AND PELVIS WITH CONTRAST CLINICAL INDICATION: Abdominal pain/constipation TECHNIQUE: CT abdomen and pelvis was performed, after the administration of 100 cc Isovue-300.. Sagit tamika and coronal reconstructions were obtained. One or more of the following dose reduction techniques were used: Automated exposure control, adjustment of the mA and kV according to patient si ze, and iterative reconstruction. Unless otherwise specified, incidental findings do not require dedicated imaging follow-up. [id number]. Oral contrast was not given which limits evaluation of bowel and appendix. COMPARISON: .None FINDINGS: Cirrhotic liver. Diminished density probably indicates mild fatty infiltration. The portal vein is patent. Recannulation of the umbilical vein. Mild splenomegaly. Paraesophageal varices are present. The wall of the distal stomach appears thickened. Cholelithiasis. Gallbladder wall upper limits normal thickness. Bilateral renal cysts Normal appendix. Post surgical changes rectosigmoid colon. Rectum is mildly distended with stool. Large amount of stools present throughout colon. Prostatic calcifications : IMPRESSION: Cirrhosis Cholelithiasis Apparent thickening of the wall of the distal stomach could indicate inflammation or incomplete diste ntion. Mild rectal distention with stool may indicate a fecal impaction. A large amount of stools present th roughout colon
--- NOTE | 2024-05-25 13:51 | ER ---
Nurse's Notes [facility] Name: Henrik Tobar Age: 78 yrs Sex: Male : 1945 Arrival Date: 05/25/2024 Time: 11:20 Bed 19 Private MD: Diagnosis: Fecal impaction Presentation: 05/25 11:21 Chief complaint: EMS states: BLQ PAIN x5 DAYS. Coronavirus screen: At this time, the bp client does not indicate any symptoms associated with coronavirus-19. Ebola Screen: No symptoms or risks identified at this time. Initial Sepsis Screen: Does the patient meet any 2 criteria? No. Patient's initial sepsis screen is negative. Does the patient have a suspected source of infection? No. Patient's initial sepsis screen is negative. Risk Assessment: Do you want to hurt yourself or someone else? Patient reports no desire to harm self or others. Onset of symptoms is unknown. 11:21 Method Of Arrival: EMS: [facility] bp 11:21 Acuity: KIEL 3 bp Triage Assessment: 11:23 General: Appears uncomfortable, Behavior is appropriate for age, anxious. Pain: bp Complains of pain in abdomen. EENT: No deficits noted. Neuro: No deficits noted. Cardiovascular: No deficits noted. Respiratory: No deficits noted. GI: Reports lower abdominal pain, constipation. : No signs and/or symptoms were reported regarding the genitourinary system. Derm: No deficits noted. Musculoskeletal: No deficits noted. Historical: - Allergies: 11:23 Sulfa (Sulfonamide Antibiotics); bp - PMHx: 11:23 COLON CANCER; Diabetes mellitus; Hypertensive disorder; Cirrhosis of liver; bp - Immunization history:: Adult Immunizations up to date. - Infectious Disease History:: Denies. - Social history:: Smoking status: Patient reports the use of cigarette tobacco products, unknown amount. - Family history:: not pertinent. - Hospitalizations: : No recent hospitalization is reported. Screenin:00 [facility] ED Fall Risk Assessment (Adult) History of falling in the last 3 months, bp including since admission No falls in past 3 months (0 pts) Confusion or Disorientation No (0 pts) Intoxicated or Sedated No (0 pts) Impaired Gait Yes (1 pt) Mobility Assist Device Used Yes (1 pt) Altered Elimination No (0 pt) Score/Fall Risk Level 0 - 2 = Low Risk Oriented to surroundings. Abuse screen: Denies threats or abuse. Denies injuries from another. Nutritional screening: No deficits noted. Tuberculosis screening: No symptoms or risk factors identified. Assessment: 11:30 General: Appears in no apparent distress. Behavior is appropriate for age. bp 14:04 Reassessment: Patient appears in no apparent distress at this time. Neuro: Level of bp Consciousness is awake, alert, obeys commands, Oriented to Appropriate for age Gait is steady. Vital Signs: 11:21 BP 127 / 90; Pulse 92; Resp 15; Temp 98; Pulse Ox 98% ; bp 14:04 BP 131 / 75; Pulse 87; Resp 15; Pulse Ox 98% ; bp ED Course: 11:21 Patient arrived in ED. bp 11:21 Akash Dhillon MD is Attending Physician. rn 11:22 Triage completed. bp 11:24 Arm band placed on. bp 11:45 Inserted saline lock: 22 gauge in left forearm, using aseptic technique. Blood ko1 collected. Flushed with 10 mL NS. 11:46 Guicho Gatica, FREYA is Primary Nurse. bp 13:00 Patient has correct armband on for positive identification. Provided Education on: na. bp 13:16 CT Abd/Pelvis - IV Contrast Only In Process Unspecified. EDMS 14:07 No provider procedures requiring assistance completed. IV discontinued, intact, bp bleeding controlled, No redness/swelling at site. Pressure dressing applied. Administered Medications: 12:02 Drug: NS 0.9% IV 1000 ml IV at 1 bolus Per protocol; to be given as a bolus over 60 bp minutes Route: IV; Rate: 1 bolus; Site: left forearm; 14:09 Follow up: IV Status: Completed infusion bp 12:42 Drug: Fleet Enema ID 133 ml ID once; may repeat once Route: ID; iw 14:09 Follow up: Response: No adverse reaction bp Medication: 14:09 VIS not applicable for this client. bp Outcome: 13:51 Discharge ordered by . rn 14:07 Discharged to home ambulatory, bp 14:07 Condition: stable 14:07 Discharge instructions given to patient, Instructed on discharge instructions, follow up and referral plans. medication usage, Demonstrated understanding of instructions, follow-up care, medications, Prescriptions given X 2, 14:10 Patient left the ED. bp Signatures: Dispatcher [employer] EDMS Ramirez Sravanthi, RN RN Akash Mon MD MD rn Peltier, Brian, RN RN Karma Lauren RN RN ko1
--- NOTE | 2024-05-25 13:51 | EDPHYS ---
Physician Documentation [facility] Name: Henrik Tobar Age: 78 yrs Sex: Male : 1945 Arrival Date: 05/25/2024 Time: 11:20 Bed 19 Private MD: ED Physician Akash Dhillon HPI: 05/25 11:32 This 78 yrs old Male presents to ER via EMS with complaints of Abdominal Pain. rn 11:32 The patient presents with abdominal pain in the lower abdomen. Onset: The rn symptoms/episode began/occurred 5 day(s) ago. The symptoms do not radiate. Associated signs and symptoms: Pertinent positives: constipation. The symptoms are described as crampy, intermittent. Modifying factors: The symptoms are alleviated by nothing, the symptoms are aggravated by nothing. Severity of pain: At its worst the pain was mild in the emergency department the pain is unchanged. The patient has experienced similar episodes in the past. Patient reports lower abdominal pain associated with constipation. No vomiting. Has not had a bowel obstruction. States had colon cancer with surgery a year ago and since then has had for 5 episodes of constipation requiring enemas that usually help. No fever or chills. No trauma. Has tried laxatives at home and not helping.. Historical: - Allergies: 11:23 Sulfa (Sulfonamide Antibiotics); bp - PMHx: 11:23 COLON CANCER; Diabetes mellitus; Hypertensive disorder; Cirrhosis of liver; bp - Immunization history:: Adult Immunizations up to date. - Infectious Disease History:: Denies. - Social history:: Smoking status: Patient reports the use of cigarette tobacco products, unknown amount. - Family history:: not pertinent. - Hospitalizations: : No recent hospitalization is reported. ROS: 11:32 Constitutional: Negative for fever, chills, and weight loss, Cardiovascular: Negative rn for chest pain, palpitations, and edema, Respiratory: Negative for shortness of breath, cough, wheezing, and pleuritic chest pain, Abdomen/GI: Positive for abdominal pain with constipation Back: Negative for injury and pain, MS/Extremity: Negative for injury and deformity, Skin: Negative for injury, rash, and discoloration, Neuro: Negative for headache, weakness, numbness, tingling, and seizure, Exam: 11:32 Constitutional: This is a well developed, well nourished patient who is awake, alert, rn and in no acute distress. Cardiovascular: Regular rate and rhythm. No pulse deficits. Respiratory: No increased work of breathing, no retractions or nasal flaring. Abdomen/GI: Soft, no focal tenderness. No distention. No peritoneal signs Vital Signs: 11:21 BP 127 / 90; Pulse 92; Resp 15; Temp 98; Pulse Ox 98% ; bp 14:04 BP 131 / 75; Pulse 87; Resp 15; Pulse Ox 98% ; bp MDM: 11:21 Medical Screening Exam initiated rn 13:50 Differential diagnosis: Constipation, impaction, bowel obstruction. Data reviewed: rn vital signs, nurses notes, lab test result(s), radiologic studies, CT scan, and as a result, I will discharge patient. Counseling: I had a detailed discussion with the patient and/or guardian regarding the historical points, exam findings, and any diagnostic results supporting the discharge/admit diagnosis, lab results, radiology results, the need for outpatient follow up, to return to the emergency department if symptoms worsen or persist or if there are any questions or concerns that arise at home. Response to treatment: the patient's symptoms have markedly improved after treatment, and as a result, I will discharge patient. Special discussion: I discussed with the patient/guardian in detail that at this point there is no indication for admission to the hospital. It is understood, however, that if the symptoms persist or worsen the patient needs to return immediately for re-evaluation. ED course: Patient reports had multiple large bowel movements following enema. Feels much better. Reports pressure in the rectum and abdominal pain has resolved. Now asking for food.. 05/25 11:23 Order name: CBC with Diff; Complete Time: 13:12 rn 05/25 11:23 Order name: CMP; Complete Time: 12:15 rn 05/25 11:48 Order name: Urinalysis w/ reflexes; Complete Time: 12:15 rn 05/25 13:02 Order name: CBC Smear Scan; Complete Time: 13:12 EDMS 05/25 11:23 Order name: CT Abd/Pelvis - IV Contrast Only; Complete Time: 13:42 rn 05/25 11:23 Order name: IV Saline Lock; Complete Time: 11:47 rn 05/25 11:23 Order name: Labs collected and sent; Complete Time: 11:47 rn Administered Medications: 12:02 Drug: NS 0.9% IV 1000 ml IV at 1 bolus Per protocol; to be given as a bolus over 60 bp minutes Route: IV; Rate: 1 bolus; Site: left forearm; 14:09 Follow up: IV Status: Completed infusion bp 12:42 Drug: Fleet Enema WV 133 ml WV once; may repeat once Route: WV; iw 14:09 Follow up: Response: No adverse reaction bp Disposition Summary: 05/25/24 13:51 Discharge Ordered Notes: Location: Home rn Problem: new rn Symptoms: have improved rn Condition: Stable rn Diagnosis - Fecal impaction rn Followup: rn - With: Private Physician - When: As needed - Reason: Recheck today's complaints, Re-evaluation by your physician Discharge Instructions: - Discharge Summary Sheet rn - Fecal Impaction rn Forms: - Medication Reconciliation Form rn - 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 - Prescription Opioid Use rn - Patient Portal Instructions rn - Leadership Thank You Letter rn Prescriptions: - Anusol-HC 2.5 % Topical cream with perineal applicator - apply 1 application RECTAL route every 8 to 12 hours As needed as needed for rn itching; 1 unit; Refills: 0, Product Selection Permitted - Nystatin-Triamcinolone 100,000-0.1 unit/g-% Topical cream - apply 1 application TOPICAL route 2 times per day; 1 unit; Refills: 0, Product rn Selection Permitted Signatures: Dispatcher [employer] EDSravanthi Garcia, RN RN iw Akash Dhillon MD MD rn Peltier, Brian RN Kateryna Zurita PA-C PAMare sb4 Corrections: (The following items were deleted from the chart) 11:24 11:24 CBC+H.LAB.BRZ ordered. EDMS EDMS 11:24 11:24 COMPREHENSIVE METABOLIC PANEL+C.LAB.BRZ ordered. EDMS EDMS 11:24 11:24 Abdomen Pelvis W Con+CT.RAD.BRZ ordered. EDMS EDMS 11:48 11:48 Urinalysis+U.LAB.BRZ ordered. EDMS EDMS
[2024-05-25 15:17] VITALS: TEMP 98; O2SAT 98
[2024-05-25 15:18] VITALS: BP 131/75
== END 2024-05-25 14:10 | disposition home or self-care (01) ==
LOC: ER 11:20
DX: K56.41 Fecal impaction (principal); Z85.038 Personal history of other malignant neoplasm of large intestine; Z72.0 Tobacco use
CPT/HCPCS: 85025; 81001; 36415; 80053; 74177; Q9967; J7030; 96360; 96361; 99284